=== PATIENT | female | born 1935 | race Caucasian/White ===

== ENCOUNTER → 2016-10-18 | Outpatient (CLI) | payer OTHER ==
[~2016-10-18] MED LIST: ACET-749 PO; ALPR-411 PO; CHROPOW21; HYOS1TAB PO; MOME50SP5; OMEG10007 PO; PRLSR20 PO; SERT50TA PO; VERA120T15 PO; ZNTT/150 PO
== END | disposition home or self-care (01) ==
LOC: C.LABSPEC 17:30
PROVIDERS: ATTEND Nurse Practitioner Family
DX: R32 Unspecified urinary incontinence (principal); R39.15 Urgency of urination

== ENCOUNTER → 2016-10-19 | Outpatient (CLI) | payer OTHER ==
[2016-10-19 17:22] LABS: HEMATOCRIT 40.2 % (37-47); MEAN CELL VOLUME 94.6 fL (80-100); MEAN CORPUSCULAR HGB CONC 33.8 g/dl (32-36); MEAN PLATELET VOLUME 12.1 fL (7.4-10.4); PLATELET COUNT 203 K/uL (130-400); RED BLOOD COUNT 4.25 M/uL (4.2-5.4); WHITE BLOOD COUNT 7.93 K/uL (4.8-10.8)
[2016-10-19 17:47] LABS: ALT/SGPT 99 U/L (12-78); AST/SGOT 62 U/L (15-37); BLOOD UREA NITROGEN 17 mg/dl (7-18); BUN/CREATININE RATIO 18.7 (10-20); CALCIUM 9.1 mg/dl (8.5-10.1); CARBON DIOXIDE 26 mmol/L (21-32); CHLORIDE 107 mmol/L (98-107); CREATININE 0.93 mg/dl (0.60-1.20); GLUCOSE 106 mg/dl (70-99); SODIUM 142 mmol/L (136-145)
[2016-10-19 17:58] LABS: ALB/GLOB RATIO 1.3 (0.9-2); ALKALINE PHOSPHATASE 47 U/L (45-117); CHOLESTEROL 192 mg/dl (0-200); CHOLESTEROL/HDL RATIO 3.6; HDL CHOLESTEROL 53 mg/dl; LDL CHOLESTEROL CALCULATED 112 mg/dl; TRIGLYCERIDES 134 mg/dl (0-150); VERY LOW DENSITY LIPOPROT CALC 27 mg/dl
[2016-10-20 07:06] LABS: ESTIMATED AVERAGE GLUCOSE 114 mg/dl; HA1C FLAG Normal (Normal)
== END | disposition home or self-care (01) ==
LOC: C.LABBFT 11:46
PROVIDERS: ATTEND Internal Medicine
DX: R73.01 Impaired fasting glucose (principal); E78.5 Hyperlipidemia, unspecified; I10 Essential (primary) hypertension

== ENCOUNTER → 2017-01-17 | Outpatient (CLI) | payer OTHER ==
[~2017-01-17] MED LIST changes: +CZR50 PO; +DICL1GEL12 TOP; +ROPI0.5T15 PO
--- NOTE | 2017-01-18 05:51 | PAP/PSG TECHNICIAN REPORT ---
[facility] Gate Tender Polysomnogram Report Study name: None Report date: 01/18/2017 Study date: 01/17/2017 Referring Physician: JEFFREY MEHTA M.D. Name: MELECIO MILTON Interpreting Physician: Mychal Sibley M.D. Date of : 1935 Gate Tender: Edda Nath RPSGT. Sex: Female Age: 81 StudyType: PSG Weight: 184 lbs Height: 81 years, Height 5' 5" Neck Circum: 14.5inches BMI: 30.62 Medications: Ranitidine HCl 150mg, Tramadol HCl 50mg, Diclofenac Sodium 1% gel, Vit E 400 unit, Losartan Potassium 50mg, Imodium 2mg, Oxybutynin Chloride ER 5mg, Vit D Patient History Study started on room air with no ETCO2 monitoring in room #5. 81 yr old female here tonight for a diagnostic psg. She has a history of KEVIN but does not use cpap. She said she sleeps for only a few hours at a time and then is up for hours and then may take a nap in the morning around 7 or 8 am. She is not sure if she snores. Her neck circ=14.5 inches. Parameters Monitored NPSG: E1-M2, E2-M1, Fp1-M2, Fp2-M1, F3-M2, F4-M2, F4-M1, C3-M2, C4-M2, C4-M1, O1-M2, O2-M2, O2-M1, T3-M2, T4-M1, P3-M2, P4-M1, CHIN1, CHIN2, HR, EKG, Legs, PFLOW, SNOR, FLOW, CFLOW, Tidal Volume, THOR, ABDO, SpO2, PLTH, CPRESS, ETCO2 Wave, ETCO2, pH Sleep Architecture Sleep Stages Time at Lights Off 10:20:26 PM STAGES Time (min.) TST (%) Time at Lights On 5:29:56 AM Wake 265.0 -- Total Recording Time (TRT) 429.50 min. N1 6.5 4 Total Sleep Period (TSP) 320.0 min. N2 96.0 58 Total Sleep Time (TST) 164.5min. N3 41.0 25 Awake Time 265.0 min. REM 21.0 13 Wake after Sleep Onset 216.5 min. Sleep Efficiency (SE) 38 % Sleep Onset Latency (GOPI) 48.5 min. Number of Stage 1 Shifts None Awakenings 7 Stage Changes 39 Number of REM periods 1 REM 21.0 13 REM Latency 200.5 min. NREM 143.5 87 Body Position Analysis Supine Right Left Side Prone Vertical Total Sleep Time (min.) 196.8 31.5 71.9 103.42 0.0 0.0 Total Sleep Time (%) 37% 19% 44% 63 0% N/A% Total Sleep Time REM (min.) 0.0 0.0 21.0 None 0.0 0.0 Total Sleep Time NREM (min.) 61.1 31.5 50.9 None 0.0 0.0 Intermittent Wake (min.) 135.7 77.1 52.2 None 0.0 0.0 Total Sleep Period (%) 37% None None None None None Arousals Myoclonus (PLM) * Events Count Index Events Count Index Spontaneous 4 1 Events Awake (PLMW) 443 100.3 Respiratory 4 1.5 Events Asleep w/ Arousal (PLMA) 22 8.0 PLM 22 8 Events Asleep w/o Arousal (PLMS) 187 68.2 Snoring 2 1 Total Asleep 209 76.2 Total 32 12 Total 652 91 Respiratory Analysis * CA OA MA CH H RERA Total Count 0 4 0 0 9 0 13 Index 0.0 1.5 0.0 0 3.3 0 4.7 Mean Duration 0.0 14.2 0.0 0.00 15.7 0.0 15.2 Longest Duration 0.0 15.6 0.0 0.00 0.0 0.0 21.4 Respiratory Event Summary Total Supine ~Supine Right Left Prone REM NREM Apneas Count 4 3 1 0 1 N/A 0 4 Index 1.5 3 1 0.0 0.8 N/A 0 2 Hypopneas (4% Desat) Count 9 9 0 0 0 N/A 0 9 Index 3.3 8.8 0 0.0 0.0 N/A 0.0 3.8 Apneas & All Hypopneas Count 13 12 1 0 1 N/A 0 13 Index 4.7 12 1 0 1 N/A 0.0 5.4 Respiratory Events (Manager Therapy+All Hyp+RERA) Count 13 12 1 0 1 N/A 0 13 Index 4.7 12 1 0.0 0.8 N/A 0.0 5.4 Respiratory Related Arousal Count 4 12 0 0 0 N/A 0 4 Index 1.5 4 0 0 0 N/A 0 2 Snoring Analysis Supine Right Left Prone REM NREM Total Snore duration 1.7 min Snores count 21 0 8 N/A 1 28 29 Snore mean duration 3.6 Sec Snores index 21 0 7 N/A 2.9 11.7 10.6 TST with snoring (%) 1.0% Desaturation Event Summary: Minimum %SpO2 Event Count Mean/Min/Max Duration(sec.) Desaturation Index % Time In Bed > 90 27 23.8 / 6.3 / 58.3 4.6 83.9 86 - 90 4 18.2 / 13.8 / 22.8 3.6 15.9 81 - 85 0 N/A 0.0 0.1 76 - 80 0 N/A 0.0 0.1 71 - 75 0 N/A 0.0 0.0 66 - 70 0 N/A 0.0 0.0 61 - 65 0 N/A 0.0 0.0 56 - 60 0 N/A 0.0 0.0 51 - 55 0 N/A 0.0 0.0 < 50 0 N/A 0.0 0.0 Total REM NREM Awake <50% 0.0 min. 0.0 min. 0.0 min. 0.0 min. 51 - 60% 0.0 min. 0.0 min. 0.0 min. 0.0 min. 61 - 70% 0.0 min. 0.0 min. 0.0 min. 0.0 min. 71 - 80% 0.2 min. 0.0 min. 0.0 min. 0.2 min. 81 - 90% 67.3 min. 0.2 min. 37.1 min. 30.1 min. 91 - 100% 352.9 min. 20.8 min. 106.4 min. 225.7 min. Average 92 93 92 92 Minimum SpO2 78 90 84 78 Desaturation Event Index 3.8 0.0 5.9 2.9 # Desat. Events below 89% 7 N/A 5 2 Time(%) with Saturation below 89% 0.8 0.0 0.4 0.4 Time(min.) with Saturation below 89% 3.3 0.0 1.8 1.5 Time (mins) REM (mins) NREM (mins) % of TST SpO2 Below 90% 12 N/A N12 9.3 SpO2 Below 88% 2 0 0 0 Heart Rate Analysis Min (bpm) Max (bpm) Average (bpm) Awake 38 127 71 NREM 58 79 65 REM 59 76 65 Overall 58 79 65 Supplemental O2 Values Minimum O2 level: None Value Start Time End Time Gate Tender Comments Mrs. Milton slept in the right, left and supine positions. No cardiac arrhythmia noted. Some leg movements were noted. No bruxism noted. Snoring was noted and scored as a 1 on a scale of 1 through 5. (0=no snoring, 5=snoring loud enough to be heard through a closed door or down the [address] way) She awoke to use the restroom 1 time during the night. She stated that she slept about the same as when at home. The final report will be interpreted and signed by a sleep physician. The completed physician report will then be placed in the patient medical record. Therapy (cm H2O) 0 TIB (min.) 429.5 TST (min.) 164.5 Sleep Onset (min.) 48.5 REM Onset From Sleep (min.) 200.5 Sleep Efficiency % 38 Wakefulness (%) 62 Wakefulness (min.) 265.0 NREM 1 (%) 4 NREM 1 (min.) 6.5 NREM 2 (%) 58 NREM 2 (min.) 96.0 NREM 3 (%) 25 NREM 3 (min.) 41.0 REM (%) 13 REM (min.) 21.0 # Arousals 32 Arousal Index 12 # Snore 29 Snore Index 10.6 AHI 4.7 AHI Supine 12 AHI Non-Supine 1 NREM AHI 5.4 REM AHI 0.0 RDI 4.7 # Obstructive Apnea 4 # Central Apnea 0 # Mixed Apnea 0 # Hypopneas 9 RERAs 0 Total Respiratory Events 14 Time Below SpO2 89% (min.) 1.8 Mean NREM SpO2 (%) 92 Mean REM SpO2 (%) 93 Mean Sleep SpO2 (%) 92 Min NREM SpO2 (%) 84 Min REM SpO2 (%) 90 Position Supine (min.) 196.8 Position Non-supine (min.) 103.4 LM Index Sleep 76.2 LM Index NREM 79.9 LM Index REM 51.4 Mean Heart Rate (bpm) 65 Min Heart Rate (bpm) 58
--- NOTE | 2017-01-19 18:42 | POLYSOMNOGRAPH REPORT ---
CLINICAL DATA: An 81-year-old female with a BMI of 30.[address] Bautista for a diagnostic sleep study. She has a history of sleep apnea, but does not use CPAP. She can only sleep for a few hours at a time and then is up for several hours; she naps in the morning. SLEEP ARCHITECTURE: Total sleep period was 320 minutes. Total sleep time was 164.5 minutes divided between 143.5 minutes of non-REM sleep and 21 minutes of REM sleep. Sleep onset latency was delayed at 48.5 minutes. REM latency was delayed at 200.5 minutes. Sleep efficiency was severely reduced to 38%. Wake after sleep onset was 216.5 minutes. Sleep consisted of stage N1 4%, N2 58%, N3 25%, and REM 13%. AROUSAL DATA: Thirty two arousals recorded for an index of 12 per hour. PERIODIC LIMB MOVEMENTS DATA: Markedly elevated limb movements of sleep were noted consistent with PLMD. There were 209 limb movements of sleep noted for an index of 76.2 per hour with arousal index of 8 per hour. RESPIRATORY DATA: There was no evidence of clinically significant sleep apnea/hypopnea seen. The AHI was 4.7. There were 4 obstructive apneic episodes, the longest duration of which was 15.6 seconds. There were 9 hypopneic episodes. The mean duration of hypopnea was 15.7 seconds. OXIMETRY DATA: Transient hypoxemia was seen. Oxygen shell was 84%. Mean saturation was 92%. Time below 88% was 2 minutes. ELECTROCARDIOGRAM: Heart rates ranged from 58-79 beats per minute. No arrhythmias were noted. EXOTIC DANCER'S COMMENTS: The patient slept in the right, left, and supine positions. Frequent leg movements are noted. Snoring was mild, rated 1 on a scale of 1-5. IMPRESSION: 1. No evidence of clinically significant sleep apnea/hypopnea or nocturnal hypoxemia. 2. Severe PLMD (periodic limb movement disorder of sleep) causing arousal. RECOMMENDATIONS: The patient could be evaluated for causes of PLMD/RLS and possibly treated for it if felt to be clinically significant. MTDD
== END | disposition home or self-care (01) ==
LOC: C.NEUR 20:00
PROVIDERS: ATTEND Internal Medicine
DX: G47.61 Periodic limb movement disorder (principal)

== ENCOUNTER → 2017-03-06 | Outpatient (CLI) | payer OTHER | END | disposition home or self-care (01) | LOC: C.LAB 17:29 | PROVIDERS: ATTEND Nurse Practitioner Family | DX: M54.9 Dorsalgia, unspecified (principal); R30.0 Dysuria ==

== ENCOUNTER → 2017-03-10 | Outpatient (CLI) | payer OTHER ==
--- NOTE | 2017-03-10 16:35 | DIAGNOSTIC IMAGING REPORT ---
RIGHT SHOULDER MIN 2 VIEWS ROUTINE CLINICAL HISTORY: Right shoulder pain COMPARISON: None. DISCUSSION: No acute fractures or dislocations are visualized. 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 4. Soft tissue anchors are visualized in the humeral head consistent with prior surgery. IMPRESSION: Postsurgical and degenerative change. No acute fractures. Electronically signed by: Joseph Juarez M.D. 03/10/2017 4:34 PM Dictated Date/Time: 03/10/2017 4:33 PM
== END | disposition home or self-care (01) ==
LOC: C.RAD 16:07
PROVIDERS: ATTEND Physician Assistant Medical
DX: M25.512 Pain in left shoulder (principal)

== ENCOUNTER → 2017-04-26 | Outpatient (CLI) | payer OTHER ==
[~2017-04-26] MED LIST changes: -CZR50 PO; -DICL1GEL12 TOP; -ROPI0.5T15 PO
[2017-04-26 17:21] LABS: BASO % 0.8 %; BASO ABS # 0.07 K/uL (0-0.2); COMPLETE YES; EOS % 2.1 %; HEMATOCRIT 41.8 % (37-47); IG% 0.2 %; LYMPH ABS # 3.29 K/uL (1.2-3.4); MEAN CELL VOLUME 94.6 fL (80-100); MEAN CORPUSCULAR HEMOGLOBIN 31.2 pg (25-34); MEAN PLATELET VOLUME 11.8 fL (7.4-10.4); MONO % 9.8 %; NEUT % 51.1 %; PLATELET COUNT 229 K/uL (130-400); RED BLOOD COUNT 4.42 M/uL (4.2-5.4); WHITE BLOOD COUNT 9.15 K/uL (4.8-10.8)
[2017-04-26 17:26] LABS: URINE APPEARANCE CLEAR (CLEAR); URINE BILIRUBIN NEG (NEG); URINE COLOR YELLOW; URINE NITRITE NEG (NEG); URINE PH 6.5 (4.5-7.5); URINE SPECIFIC GRAVITY 1.016 (1.000-1.030); UROBILINOGEN NEG (NEG)
[2017-04-26 17:37] LABS: BLOOD UREA NITROGEN 15 mg/dl (7-18); BUN/CREATININE RATIO 18.3 (10-20); CARBON DIOXIDE 25 mmol/L (21-32); CHLORIDE 109 mmol/L (98-107); CREATININE 0.82 mg/dl (0.60-1.20); GLUCOSE 112 mg/dl (70-99); POTASSIUM 3.7 mmol/L (3.5-5.1); SODIUM 141 mmol/L (136-145)
[2017-04-26 17:40] LABS: MANUAL MICROSCOPIC REQUIRED? NO; REVIEW REQ? NO
[2017-04-26 17:49] LABS: ALB/GLOB RATIO 1.2 (0.9-2); ALKALINE PHOSPHATASE 63 U/L (45-117); ALT/SGPT 91 U/L (12-78); AST/SGOT 76 U/L (15-37); CHOLESTEROL 170 mg/dl (0-200); CHOLESTEROL/HDL RATIO 4.3; HDL CHOLESTEROL 40 mg/dl; LDL CHOLESTEROL CALCULATED 103 mg/dl; TRIGLYCERIDES 136 mg/dl (0-150); VERY LOW DENSITY LIPOPROT CALC 27 mg/dl
[2017-04-27 06:34] LABS: ESTIMATED AVERAGE GLUCOSE 114 mg/dl; HA1C FLAG Normal (Normal)
== END | disposition home or self-care (01) ==
LOC: C.LABBFT 10:21
PROVIDERS: ATTEND Internal Medicine
DX: E78.5 Hyperlipidemia, unspecified (principal); I10 Essential (primary) hypertension; R73.01 Impaired fasting glucose; R41.0 Disorientation, unspecified

== ENCOUNTER → 2017-04-27 | Outpatient (CLI) | payer OTHER | END | disposition home or self-care (01) | LOC: C.LAB1850 14:20 | PROVIDERS: ATTEND Physician Assistant Medical | DX: G47.61 Periodic limb movement disorder (principal) ==

== ENCOUNTER → 2017-05-02 | Outpatient (CLI) | payer OTHER ==
--- NOTE | 2017-05-02 11:44 | DIAGNOSTIC IMAGING REPORT ---
ABDOMINAL ULTRASOUND, RIGHT UPPER QUADRANT HISTORY: Abnormal liver enzymes.. COMPARISON: None. FINDINGS: Pancreas: The pancreas demonstrates a normal echotexture. Liver: The liver is echogenic consistent with fatty change. No hepatic masses identified. Gallbladder: The gallbladder is surgically absent. CBD: 8 mm. Right kidney: No hydronephrosis. Stable fullness within the right renal pelvis. IMPRESSION: 1. Mild hepatic steatosis. 2. Cholecystectomy. Electronically signed by: Bob Islas M.D. 05/02/2017 11:42 AM Dictated Date/Time: 05/02/2017 11:41 AM
== END | disposition home or self-care (01) ==
LOC: C.ULTR 10:46
PROVIDERS: ATTEND Internal Medicine
DX: R74.8 Abnormal levels of other serum enzymes (principal); Z90.49 Acquired absence of other specified parts of digestive tract

== ENCOUNTER → 2017-06-27 | Outpatient (CLI) | payer OTHER ==
[~2017-06-27] VITALS: Ht 165.1 cm; Wt 81.2 kg
[2017-06-27 15:45] VITALS: BP 139/65; PULSE 67; Ht 165.1 cm; Wt 81.2 kg
== END | disposition home or self-care (01) ==
LOC: C.NEUR 14:55
PROVIDERS: ATTEND Internal Medicine Pulmonary Disease
DX: G47.00 Insomnia, unspecified (principal); G47.61 Periodic limb movement disorder

== ENCOUNTER 2017-09-05 18:17 | Emergency (ER) | payer OTHER ==
[~2017-09-05] VITALS: Ht 165.1 cm; Wt 84.0 kg
[2017-09-05 18:21] VITALS: TEMP 36.7; Ht 165.1 cm; Wt 84.0 kg
--- NOTE | 2017-09-05 19:01 | EMERGENCY ROOM VISIT NOTE ---
History Report prepared by Param: Gilmar Teixeira Under the Supervision of: Dr. Chuy Ayoub M.D. First contact with patient: 18:27 Chief Complaint: CARDIAC ASSESSMENT Stated Complaint: EKG FINDINGS Nursing Triage Summary: Pt presents with daughter. Pt was at PT today approx 1630, became SOB and lightheaded. Denies cp at present. Pt states does have sob and cp when laying down. History of Present Illness The patient is a 81 year old female who presents to the Emergency Room with complaints of intermittent chest pains which comes when she is lying down starting earlier today. The patient was at physical therapy around 1630, and she was having a massage of her neck. During this her breathing got shallow, had a near syncopal episode, and when she sat up she had chest pain. They told her to get an EKG, and it was abnormal. The patient additionally states that she is short of breath. She denies any nausea, leg swelling, hematochezia, melena, urinary symptoms, numbness, weakness, recent falls, cardiac history, neuro history, history of blood clots, and history of diabetes. She has a history of a cholecystectomy and low blood pressure. Source of History: patient Onset: 1630 Position: chest Timing: intermittent Modifying Factors (Worsening): other (lying down) Associated Symptoms: + SOB, No melena, No hematochezia, No urinary symptoms , No weakness, No numbness Note: Associated symptoms: near syncopal episode Review of Systems See HPI for pertinent positives & negatives. A total of 10 systems reviewed and were otherwise negative. Past Medical & Surgical Medical Problems: (1) Hypotension Surgical Problems: (1) Hx of cholecystectomy Old medical records were reviewed. Nurse's notes were reviewed and I agree with. Denies history cardiac disease or blood clots or pulmonary disease Social History Smoking Status: Never Smoker Marital Status: Occupation Status: retired Current/Historical Medications Scheduled Alprazolam (Xanax), 0.5 MG PO Q12HR PRN Losartan Potassium (Losartan Potassium), 50 MG PO DAILY Ranitidine (Zantac), 150 MG PO BID Ropinirole (Requip), 0.5 MG PO HS Scheduled PRN Diclofenac Sodium (Topical) (Voltaren 1% Top Gel), 1 DOSE TOP QID PRN for PRN Miscellaneous Medications Fish Oil ([place]-3), 1 CAP PO Allergies Coded Allergies: Latex1 -Allergic Contact Dermititis (Verified Allergy, Mild, `, 09/05/17) Iodinated Contrast Media (Verified Allergy, Unknown, PT BELIEVES SHE IS ALLERGIC TO CONTRAST MEDIA, 09/05/17) NSAIDs (Verified Allergy, Unknown, PT TAKES BUFFERED ASA AT HOME, 07/26/10 ) Penicillins (Verified Allergy, Unknown, 07/26/10) Sulfa Drugs (Verified Allergy, Unknown, 07/26/10) Physical Exam Vital Signs Date Time Temp Pulse Resp B/P (MAP) Pulse Ox O2 Delivery O2 Flow Rate FiO2 09/05/17 20:29 82 22 177/87 96 Room Air 09/05/17 19:25 86 20 169/75 98 Room Air 09/05/17 19:14 77 09/05/17 18:21 36.7 86 18 191/78 97 Room Air Physical Exam General: Non-ill appearing older female in no acute distress. No current complaints. HEENT: Normal cephalic atraumatic. Pupils are equal round and reactive to light. Extraocular movements are intact. Oropharynx is pink with moist mucous membranes. No swelling of the mouth lips or tongue. Neck: Supple with a midline trachea. No meningeal signs or stiffness, no JVD or bruits. No Stridor. Chest: Clear to auscultation bilaterally. No wheezes or rhonchi. No increased work of breathing. Heart: regular rate and rhythm. Abdomen: Soft nontender, nondistended without rebound guarding or rigidity. Extremities: No cyanosis clubbing or edema. No calf tenderness or assymetry Spine/Back. Non tender to palpation. No CVA tenderness Skin: Good turgor without rashes. Neurologic exam: Cranial nerves two through 12 are intact. Motor and sensation are intact and symmetrical throughout. Medical Decision & Procedures ER Provider Diagnostic Interpretation: Radiology results as stated below per my review and radiologist interpretation: CHEST ONE VIEW PORTABLE CLINICAL HISTORY: CHEST PAIN dyspnea COMPARISON STUDY: No previous studies for comparison. FINDINGS: Slight bibasilar interstitial prominence. Mid and upper lungs are clear. No evidence for cardiac enlargement. IMPRESSION: Mild bibasilar interstitial prominence. Otherwise negative study. The above report was generated using voice recognition software. It may contain grammatical, syntax or spelling errors. Electronically signed by: Raphael Daigle M.D. 09/05/2017 7:34 PM Dictated Date/Time: 09/05/2017 7:33 PM Laboratory Results 09/05/17 19:42 Red Blood Count 4.25, Mean Corpuscular Volume 95.8, Mean Corpuscular Hemoglobin 32.2, Mean Corpuscular Hemoglobin Concent 33.7, Mean Platelet Volume 11.4, Neutrophils (%) (Auto) 47.8, Lymphocytes (%) (Auto) 42.4, Monocytes (%) (Auto) 7.6, Eosinophils (%) (Auto) 1.2, Basophils (%) (Auto) 0.6, Neutrophils # (Auto) 5.25, Lymphocytes # (Auto) 4.65, Monocytes # (Auto) 0.83, Eosinophils # (Auto) 0.13, Basophils # (Auto) 0.07 09/05/17 19:42 Test 09/05/17 19:42 09/05/17 19:54 White Blood Count 10.97 K/uL (4.8-10.8) Red Blood Count 4.25 M/uL (4.2-5.4) Hemoglobin 13.7 g/dL (12.0-16.0) Hematocrit 40.7 % (37-47) Mean Corpuscular Volume 95.8 fL (80-100) Mean Corpuscular Hemoglobin 32.2 pg (25-34) Mean Corpuscular Hemoglobin Concent 33.7 g/dl (32-36) Platelet Count 199 K/uL (130-400) Mean Platelet Volume 11.4 fL (7.4-10.4) Neutrophils (%) (Auto) 47.8 % Lymphocytes (%) (Auto) 42.4 % Monocytes (%) (Auto) 7.6 % Eosinophils (%) (Auto) 1.2 % Basophils (%) (Auto) 0.6 % Neutrophils # (Auto) 5.25 K/uL (1.4-6.5) Lymphocytes # (Auto) 4.65 K/uL (1.2-3.4) Monocytes # (Auto) 0.83 K/uL (0.11-0.59) Eosinophils # (Auto) 0.13 K/uL (0-0.5) Basophils # (Auto) 0.07 K/uL (0-0.2) RDW Standard Deviation 47.8 fL (36.4-46.3) RDW Coefficient of Variation 13.8 % (11.5-14.5) Immature Granulocyte % (Auto) 0.4 % Immature Granulocyte # (Auto) 0.04 K/uL (0.00-0.02) Anion Gap 4.0 mmol/L (3-11) Est Creatinine Clear Calc Drug Dose 53.4 ml/min Estimated GFR () 71.9 Estimated GFR (Non- 62.0 BUN/Creatinine Ratio 17.8 (10-20) Calcium Level 9.1 mg/dl (8.5-10.1) Total Bilirubin 0.6 mg/dl (0.2-1) Direct Bilirubin mg/dl (0-0.2) Aspartate Amino Transf (AST/SGOT) 66 U/L (15-37) Alanine Aminotransferase (ALT/SGPT) 87 U/L (12-78) Alkaline Phosphatase 52 U/L (45-117) Total Creatine Kinase 170 U/L (26-192) Creatine Kinase MB 2.1 ng/ml (0.5-3.6) Creatine Kinase MB Ratio 1.2 (0-3.0) Total Protein 6.9 gm/dl (6.4-8.2) Albumin 3.8 gm/dl (3.4-5.0) Lipase 150 U/L (73-393) Chemistry Specimen Hemolysis Bedside Troponin I < 0.030 ng/ml (0-0.045) Laboratory studies as stated above per my review. ECG Indication: chest pain Rate (beats per minute): 76 Rhythm: normal sinus Findings: Q waves (in lead 3 only), no acute ischemic change, no ectopy Comparison ECG Date: 08/18/10 Change: no significant change ED Course 1826: Past medical records reviewed. The patient was evaluated in room B3, and a complete history and physical examination were performed. 1920: I reevaluated the patient, and she was resting comfortably 1955: I reassessed the patient, and she is still waiting for her blood work. She is complaining that she is hungry. 2020: Upon reevaluation, the patient is doing well and adamant she does not want to stay. I discussed the results and treatment plan with her. She verbalized agreement of the treatment plan. The patient was discharged home. Medical Decision Differentials include, but are not limited to; acute coronary syndrome, arrhythmia, anxiety, musculoskeletal, pulmonary disease, electrolyte or metabolic abnormality. This patient comes in as described above. She was placed in room B3. She was sent over after having a brief episode of chest pain. She was getting her neck massage and had a near syncopal episode she felt when she was massaged. She had chest pain very briefly. She's been having this for a long time primarily just when she lays down. It is nonexertional. She is asymptomatic and strongly desires to go home. She was seen at the urgent care center and on her EKG. She had a Q-wave in lead 3 so they sent her here. I did look at the EKG and it is certainly nonpathologic and it's just in one lead. There is no ST segment elevation or T-wave inversions or anything to suggest ischemia or arrhythmia. Multiple blood testing was obtained as well as a chest x-ray. She is asymptomatic at present. Her EKG here is unremarkable and unchanged compared to old ones. Her troponin is not elevated her CK-MB is not elevated. She has no acute electrode or metabolic abnormalities. Her chest x-ray does not show any acute findings. She adamantly wants to go home and has been asymptomatic here. The symptoms have been going on for quite some time and are somewhat atypical I told her we could admit her to run further cardiac testing to further rule out cardiac abnormality, she adamantly declines and refuses admission and I think that that is reasonable with her workup so far unremarkable to have her follow up with her regular doctor . return if she has worsening of symptoms or any new problems or concerns. The patient was happy with the plan and discharged to home. Medication Reconcilliation Current Medication List: was personally reviewed by me Blood Pressure Screening Patient's blood pressure: Elevated blood pressure Blood pressure disposition: Referred to PCP Impression Primary Impression: Near syncope Additional Impression: Precordial chest pain Scribe Attestation The scribe's documentation has been prepared under my direction and personally reviewed by me in its entirety. I confirm that the note above accurately reflects all work, treatment, procedures, and medical decision making performed by me. Departure Information Dispostion Home / Self-Care Referrals Aristides Bautista M.D. (PCP) Forms IMPORTANT VISIT INFORMATION Patient Instructions My [facility] Additional Instructions Rest. Drink plenty of fluids. Return if: Increasing pain, shortness of breath, worsening of symptoms, fever or chills, any new problems or concerns Follow-up with your doctor in 1-2 days for recheck Problem Qualifiers
--- NOTE | 2017-09-05 19:36 | DIAGNOSTIC IMAGING REPORT ---
CHEST ONE VIEW PORTABLE CLINICAL HISTORY: CHEST PAIN dyspnea COMPARISON STUDY: No previous studies for comparison. FINDINGS: Slight bibasilar interstitial prominence. Mid and upper lungs are clear. No evidence for cardiac enlargement. IMPRESSION: Mild bibasilar interstitial prominence. Otherwise negative study. The above report was generated using voice recognition software. It may contain grammatical, syntax or spelling errors. Electronically signed by: Raphael Daigle M.D. 09/05/2017 7:34 PM Dictated Date/Time: 09/05/2017 7:33 PM
[2017-09-05] MEDS ORDERED: DICL1GEL12 TOP (19:44)
[2017-09-05] MEDS ORDERED: ROPI0.5T15 PO (19:44)
[2017-09-05] MEDS ORDERED: CZR50 PO (19:44)
[2017-09-05 19:55] LABS: BASO % 0.6 %; BASO ABS # 0.07 K/uL (0-0.2); COMPLETE YES; EOS % 1.2 %; HEMATOCRIT 40.7 % (37-47); IG% 0.4 %; LYMPH % 42.4 %; LYMPH ABS # 4.65 K/uL (1.2-3.4); MEAN CELL VOLUME 95.8 fL (80-100); MEAN CORPUSCULAR HEMOGLOBIN 32.2 pg (25-34); MEAN CORPUSCULAR HGB CONC 33.7 g/dl (32-36); MEAN PLATELET VOLUME 11.4 fL (7.4-10.4); MONO % 7.6 %; NEUT % 47.8 %; PLATELET COUNT 199 K/uL (130-400); RED BLOOD COUNT 4.25 M/uL (4.2-5.4); WHITE BLOOD COUNT 10.97 K/uL (4.8-10.8)
[2017-09-05 20:29] VITALS: BP 177/87; PULSE 82; O2SAT 96
[2017-09-05 20:32] LABS: ALKALINE PHOSPHATASE 52 U/L (45-117); ALT/SGPT 87 U/L (12-78); AST/SGOT 66 U/L (15-37); BLOOD UREA NITROGEN 15 mg/dl (7-18); BUN/CREATININE RATIO 17.8 (10-20); CALCIUM 9.1 mg/dl (8.5-10.1); CARBON DIOXIDE 28 mmol/L (21-32); CHLORIDE 107 mmol/L (98-107); CKMB/CK RATIO 1.2 (0-3.0); CREATININE 0.87 mg/dl (0.60-1.20); GLUCOSE 86 mg/dl (70-99); POTASSIUM 4.1 mmol/L (3.5-5.1); SODIUM 139 mmol/L (136-145)
== END 2017-09-05 20:50 | disposition home or self-care (01) ==
LOC: C.EDB 18:17
DX: R55 Syncope and collapse (principal); R07.2 Precordial pain; Z90.49 Acquired absence of other specified parts of digestive tract

== ENCOUNTER → 2017-10-27 | Outpatient (CLI) | payer OTHER ==
[~2017-10-27] MED LIST changes: -ACET-749 PO; -CHROPOW21; +CZR50 PO; +DICL1GEL12 TOP; -HYOS1TAB PO; -MOME50SP5; -PRLSR20 PO; +ROPI0.5T15 PO; -SERT50TA PO; -VERA120T15 PO
[2017-10-27 16:26] LABS: HEMATOCRIT 42.7 % (37-47); HEMOGLOBIN 14.1 g/dL (12.0-16.0); MEAN PLATELET VOLUME 11.8 fL (7.4-10.4); PLATELET COUNT 208 K/uL (130-400); RED CELL DISTRIBUTION WIDTH CV 13.6 % (11.5-14.5); RED CELL DISTRIBUTION WIDTH SD 48.2 fL (36.4-46.3); WHITE BLOOD COUNT 9.69 K/uL (4.8-10.8)
[2017-10-27 16:37] LABS: ALBUMIN 3.7 gm/dl (3.4-5.0); ALT/SGPT 87 U/L (12-78); BLOOD UREA NITROGEN 16 mg/dl (7-18); CALCIUM 9.2 mg/dl (8.5-10.1); CARBON DIOXIDE 28 mmol/L (21-32); CHOLESTEROL 175 mg/dl (0-200); GLUCOSE 104 mg/dl (70-99); POTASSIUM 4.1 mmol/L (3.5-5.1); SODIUM 139 mmol/L (136-145)
[2017-10-27 16:48] LABS: ALKALINE PHOSPHATASE 49 U/L (45-117); AST/SGOT 64 U/L (15-37); LDL CHOLESTEROL CALCULATED 110 mg/dl; TOTAL PROTEIN 6.7 gm/dl (6.4-8.2)
[2017-10-28 06:26] LABS: HEMOGLOBIN A1C 5.5 % (4.5-5.6)
== END | disposition home or self-care (01) ==
LOC: C.LABBFT 11:57
PROVIDERS: ATTEND Internal Medicine
DX: E78.5 Hyperlipidemia, unspecified (principal); I10 Essential (primary) hypertension; R73.01 Impaired fasting glucose

== ENCOUNTER → 2018-04-26 | Outpatient (CLI) | payer OTHER ==
[~2018-04-26] MED LIST changes: +RANI150T85 PO; -ZNTT/150 PO
[2018-04-26 17:38] LABS: HEMATOCRIT 42.1 % (37-47); HEMOGLOBIN 14.1 g/dL (12.0-16.0); MEAN CORPUSCULAR HEMOGLOBIN 31.8 pg (25-34); MEAN CORPUSCULAR HGB CONC 33.5 g/dl (32-36); MEAN PLATELET VOLUME 12.5 fL (7.4-10.4); PLATELET COUNT 191 K/uL (130-400); RED CELL DISTRIBUTION WIDTH CV 13.8 % (11.5-14.5); RED CELL DISTRIBUTION WIDTH SD 47.6 fL (36.4-46.3); WHITE BLOOD COUNT 9.93 K/uL (4.8-10.8)
[2018-04-26 17:57] LABS: ALBUMIN 3.7 gm/dl (3.4-5.0); ALKALINE PHOSPHATASE 50 U/L (45-117); ALT/SGPT 81 U/L (12-78); AST/SGOT 65 U/L (15-37); BLOOD UREA NITROGEN 14 mg/dl (7-18); CALCIUM 9.2 mg/dl (8.5-10.1); CARBON DIOXIDE 25 mmol/L (21-32); CHOLESTEROL 198 mg/dl (0-200); CREATININE 0.99 mg/dl (0.60-1.20); GLUCOSE 157 mg/dl (70-99); LDL CHOLESTEROL CALCULATED 122 mg/dl; POTASSIUM 3.9 mmol/L (3.5-5.1); SODIUM 141 mmol/L (136-145); TOTAL PROTEIN 6.5 gm/dl (6.4-8.2)
== END | disposition home or self-care (01) ==
LOC: C.LABBFT 14:07
PROVIDERS: ATTEND Internal Medicine
DX: E78.5 Hyperlipidemia, unspecified (principal); I10 Essential (primary) hypertension

== ENCOUNTER 2020-12-24 18:27 | Inpatient (IN) ==
--- NOTE | 2020-12-24 18:54 | Emergency Department Note ---
History of Present Illness General Chief complaint: Chest Pain Stated complaint: CHEST PAIN Time Seen by Provider: 12/24/20 18:38 Source: patient and family Limitations: altered mental status History of Present Illness Provider complaint: Chest pain Onset (ago): hour(s) Location: chest, left and right Radiation: non-radiation Pain Consistency: + now resolved Maximum Pain Intensity: 8 Quality: + other (Unable to describe) Relieved By: + none Associated symptoms: + confusion, + headaches and + shortness of breath; no cough, no fever/chills and no nausea/vomiting This is an 85-year-old female presenting with altered mental status and chest pain. The patient apparently told her daughter's niece that she had chest pain several hours ago. She states the pain is across her chest. She cannot describe it. It was associated with shortness of breath. It is now resolved. No modifying factors. She does complain of a mild headache at this time. Her daughter states that she is very confused. She is not normally confused. The last time she spoke to her and she was normal was at 6 PM yesterday. The patient denies any numbness or weakness on one side of her body. She denies any abdominal pain or vomiting. History is limited due to altered mental status. Home Medications Medication Instructions Recorded Confirmed Type vitamin E 400 unit PO DAILY 10/04/18 12/24/20 History diclofenac sodium 1 % topical gel 4 gm TOPICAL QID PRN #100 gm 12/16/19 12/24/20 Rx lorazepam 0.5 mg tablet 0.5 mg PO DAILY PRN #30 tab 12/16/19 12/24/20 Rx Allergies Allergy/AdvReac Type Severity Reaction Status Date / Time latex Allergy Mild ` Verified 12/24/20 20:38 Iodinated Contrast Media Allergy Unknown PT Verified 12/24/20 20:38 BELIEVES SHE IS ALLERGIC TO CONTRAST MEDIA NSAIDS (Non-Steroidal Allergy Unknown PT TAKES Verified 12/24/20 20:38 Anti-Inflamma BUFFERED ASA AT HOME Penicillins Allergy Unknown Unknown Verified 12/24/20 20:38 Sulfa (Sulfonamide Allergy Unknown Unknown Verified 12/24/20 20:38 Antibiotics) HEATH Inhibitors Allergy Unknown Verified 12/24/20 20:38 erythromycin base Allergy Unknown Verified 12/24/20 20:38 escitalopram [From Lexapro] Allergy Unknown Verified 12/24/20 20:38 Latex, Natural Rubber Allergy Unknown Verified 12/24/20 20:38 methocarbamol [From Robaxin] Allergy Unknown Verified 12/24/20 20:38 oxybutynin Allergy Unknown Verified 12/24/20 20:38 Fzdgyyx-Rqk-Upf Reductase Allergy Unknown Verified 12/24/20 20:38 Inhibitor tegaserod [From Zelnorm] Allergy Unknown Verified 12/24/20 20:38 milk AdvReac Unknown Verified 12/24/20 20:38 Past Med/Surg History Medical History Altered mental status Anxiety Depression Hyperlipidemia Hypertension Hypotension Impaired fasting glucose Neck pain Shortness of breath Syncopal episodes Surgical History H/O hysterectomy with oophorectomy History of appendectomy History of carpal tunnel surgery History of foot surgery Hx of cholecystectomy Family History Sister Arthritis Cancer Diabetes Coronary heart disease Hypertension Kidney disease Breast cancer Father Cerebral artery occlusion Heart disease Hypertension Myocardial infarction Daughter Cardiac disorder Hypertension Heart disease Son Cardiac disorder Hearing loss Other Family history non-contributory Denies family history of Ovarian cancer Prostate cancer Colorectal cancer Social History Smoking Status: Never smoker Second Hand Exposure: No; Hx Alcohol Use: No Hx Substance Use: No Preferred Language: Bengali Visual Impairment: No Limitations Hearing Ability: Use of Hearing Aid marital status: / Current Living Situation: Alone Current Living Situation Comment: she rents a trailer next to her family current occupational status: retired current occupation: worked making components of electronics Feels Safe at Home: Yes Childhood Exposure to Second-Hand Smoke: Yes Dental Care, Regularly: No Physical Activity Frequency: Does not Exercise Seatbelt Use: always Sunscreen Use: No Review of Systems See HPI for pertinent positives & negatives. Unobtainable due to cognitive status Physical Exam Vital Signs Vital Signs - 24 hr 12/24/20 18:33 12/24/20 18:48 12/24/20 18:54 Temperature 36.9 C Temperature Source Oral Pulse Rate 102 H 90 Pulse Rate from SpO2 Sensor 91 H Respiratory Rate 20 25 H Respiratory Effort / Characteristics Non-Labored Respiratory Depth Normal Blood Pressure 175/80 H 153/75 H Blood Pressure Mean 111 101 Pulse Oximetry 95 96 95 Oxygen Delivery Method Room Air Room Air Sepsis Recent Fever Within 48 Hours No Sepsis New/Unexplained Change in Mental Status N/A Sepsis Action Taken by Nursing No Action Required 12/24/20 18:59 12/24/20 19:00 12/24/20 19:57 Temperature Temperature Source Pulse Rate 89 89 85 Pulse Rate from SpO2 Sensor 89 89 Respiratory Rate 23 21 14 Respiratory Effort / Characteristics Respiratory Depth Blood Pressure 148/88 H Blood Pressure Mean 108 Pulse Oximetry 95 95 Oxygen Delivery Method Sepsis Recent Fever Within 48 Hours Sepsis New/Unexplained Change in Mental Status Sepsis Action Taken by Nursing 12/24/20 20:00 12/24/20 20:30 12/24/20 21:00 Temperature Temperature Source Pulse Rate 83 84 80 Pulse Rate from SpO2 Sensor 88 84 80 Respiratory Rate 19 18 16 Respiratory Effort / Characteristics Respiratory Depth Blood Pressure 144/75 H 145/98 H 160/78 H Blood Pressure Mean 98 113 105 Pulse Oximetry 97 97 97 Oxygen Delivery Method Sepsis Recent Fever Within 48 Hours Sepsis New/Unexplained Change in Mental Status Sepsis Action Taken by Nursing 12/24/20 21:30 12/24/20 22:00 Temperature Temperature Source Pulse Rate 82 81 Pulse Rate from SpO2 Sensor 82 83 Respiratory Rate 17 17 Respiratory Effort / Characteristics Respiratory Depth Blood Pressure 173/85 H Blood Pressure Mean 114 Pulse Oximetry 97 96 Oxygen Delivery Method Sepsis Recent Fever Within 48 Hours Sepsis New/Unexplained Change in Mental Status Sepsis Action Taken by Nursing Constitutional: Vital signs reviewed. Eyes: Pupils are equal round reactive to light. Conjunctiva are noninjected. ENT: Pharynx is clear without erythema or exudate. Mucous membranes are moist. Neck supple without meningeal signs. Respiratory: Clear to auscultation bilaterally. Breath sounds are equal bilaterally. Cardiovascular: Regular rate and rhythm. No rubs or gallops. GI: Soft, nondistended and nontender. Bowel sounds are present. Musculoskeletal: No peripheral edema. No lower extremity tenderness. Integumentary: No cyanosis. or jaundice. Neurologic: The patient is awake and alert and oriented x2. Cranial nerves II- XII are intact. Motor is 5 out of 5 all extremities. Sensation is intact to light touch all extremities. Normal speech. No pronator drift. Psychiatric: Unable to assess. She mostly staring blankly into space. Course Administered Medications Lorazepam (Lorazepam 0.5 Mg Tab) 0.5 mg PO DAILY PRN PRN Reason: anxiety Stop: 01/23/21 21:54 Last Admin: 12/24/20 21:58 Dose: 0.5 mg Documented by: [id number] Medical Decision Making Differential Diagnosis Unstable angina, VT, pneumonia, encephalopathy, stroke, intracranial hemorrhage Medical Records Attestation: I reviewed the patient's medical records. I did perform a limited focused review of portions of the patient's old chart on the electronic medical record. The patient had a health maintenance visit at her primary care provider's several days ago. Home Medications Current Medication List: was personally reviewed by me Laboratory Data Attestation: I reviewed the patient's lab results. Result diagrams: 12/24/20 18:50 12/24/20 18:50 Lab Results 12/24/20 12/24/20 12/24/20 Range/Units 18:50 18:50 18:50 WBC 30.95 H* (4.8-10.8) K/uL RBC 4.23 (4.2-5.4) M/uL Hgb 13.4 (12.0-16.0) g/dL Hct 40.9 (37-47) % MCV 96.7 (80-100) fL MCH 31.7 (25-34) pg MCHC 32.8 (32-36) g/dL RDW Std Deviation 51.5 H (36.4-46.3) fL RDW Coeff of Billy 14.5 (11.5-14.5) % Plt Count 142 (130-400) K/uL MPV 11.4 H (7.4-10.4) fL Immature Gran % (Auto) 0.4 % Neut % (Auto) 14.9 % Lymph % (Auto) 81.5 % [place] % (Auto) 2.7 % Eos % (Auto) 0.3 % Baso % (Auto) 0.2 % Neut # (Auto) 4.62 (1.4-6.5) K/uL Lymph # (Auto) 25.21 H (1.2-3.4) K/uL Stafford # (Auto) 0.85 H (0.11-0.59) K/uL Eos # (Auto) 0.09 (0-0.5) K/uL Baso # (Auto) 0.06 (0-0.2) K/uL Immature Gran # (Auto) 0.12 H (0.00-0.02) K/uL PT 10.2 (9.0-12.0) Seconds INR 1.0 (0.9-1.1) APTT 23.1 (21.0-31.0) Seconds PTT Ratio 0.9 Sodium 142 (136-145) mmol/L Potassium 4.0 (3.5-5.1) mmol/L Chloride 110 H (98-107) mmol/L Carbon Dioxide 26 (21-32) mmol/L Anion Gap 6.0 (3-11) BUN 22 H (7-18) mg/dl Creatinine 1.02 (0.6-1.2) mg/dl Est Cr Clr Drug Dosing 41.7 ml/min Est GFR ( Amer) 57.7 Est GFR (Non-Af Amer) 49.8 BUN/Creatinine Ratio 21.1 H (10-20) Glucose 131 H (70-99) mg/dl Calcium 8.9 (8.5-10.1) mg/dl Magnesium 2.3 (1.8-2.4) mg/dl Total Bilirubin 0.6 (0.2-1) mg/dl AST 54 H (15-37) U/L ALT 62 (12-78) U/L Alkaline Phosphatase 56 (45-117) U/L Troponin I < 0.015 (0-0.045) ng/ml Total Protein 6.4 (6.4-8.2) gm/dl Albumin 3.7 (3.4-5.0) gm/dl Globulin 2.7 (2.5-4.0) gm/dl Albumin/Globulin Ratio 1.4 (0.9-2) Specimen Hemolysis Urine Color Urine Appearance (Clear) Urine pH (4.5-7.5) Ur Specific [place] (1.000-1.030) Urine Protein (Negative) Urine Glucose (UA) (Negative) Urine Ketones (Negative) Urine Blood (Negative) Urine Nitrite (Negative) Urine Bilirubin (Negative) Urine Urobilinogen (Negative) Ur Leukocyte Esterase (Negative) Urine WBC (Auto) (0-5) /hpf Urine RBC (Auto) (0-4) /hpf U Hyaline Cast (Auto) (0-5) /lpf U Epithel Cells (Auto) (0-5) /lpf Urine Bacteria (Auto) (Negative) COVID-19 Eval Order 12/24/20 12/24/20 Range/Units 19:55 21:32 WBC (4.8-10.8) K/uL RBC (4.2-5.4) M/uL Hgb (12.0-16.0) g/dL Hct (37-47) % MCV (80-100) fL MCH (25-34) pg MCHC (32-36) g/dL RDW Std Deviation (36.4-46.3) fL RDW Coeff of Billy (11.5-14.5) % Plt Count (130-400) K/uL MPV (7.4-10.4) fL Immature Gran % (Auto) % Neut % (Auto) % Lymph % (Auto) % [place] % (Auto) % Eos % (Auto) % Baso % (Auto) % Neut # (Auto) (1.4-6.5) K/uL Lymph # (Auto) (1.2-3.4) K/uL [place] # (Auto) (0.11-0.59) K/uL Eos # (Auto) (0-0.5) K/uL Baso # (Auto) (0-0.2) K/uL Immature Gran # (Auto) (0.00-0.02) K/uL PT (9.0-12.0) Seconds INR (0.9-1.1) APTT (21.0-31.0) Seconds PTT Ratio Sodium (136-145) mmol/L Potassium (3.5-5.1) mmol/L Chloride (98-107) mmol/L Carbon Dioxide (21-32) mmol/L Anion Gap (3-11) BUN (7-18) mg/dl Creatinine (0.6-1.2) mg/dl Est Cr Clr Drug Dosing ml/min Est GFR ( Amer) Est GFR (Non-Af Amer) BUN/Creatinine Ratio (10-20) Glucose (70-99) mg/dl Calcium (8.5-10.1) mg/dl Magnesium (1.8-2.4) mg/dl Total Bilirubin (0.2-1) mg/dl AST (15-37) U/L ALT (12-78) U/L Alkaline Phosphatase (45-117) U/L Troponin I (0-0.045) ng/ml Total Protein (6.4-8.2) gm/dl Albumin (3.4-5.0) gm/dl Globulin (2.5-4.0) gm/dl Albumin/Globulin Ratio (0.9-2) Specimen Hemolysis Urine Color Yellow Urine Appearance Clear (Clear) Urine pH 6.5 (4.5-7.5) Ur Specific [place] 1.024 (1.000-1.030) Urine Protein Negative (Negative) Urine Glucose (UA) Negative (Negative) Urine Ketones Trace H (Negative) Urine Blood Negative (Negative) Urine Nitrite Negative (Negative) Urine Bilirubin Negative (Negative) Urine Urobilinogen Negative (Negative) Ur Leukocyte Esterase 1+ H (Negative) Urine WBC (Auto) 10-30 H (0-5) /hpf Urine RBC (Auto) 0-4 (0-4) /hpf U Hyaline Cast (Auto) 1-5 (0-5) /lpf U Epithel Cells (Auto) >30 H (0-5) /lpf Urine Bacteria (Auto) Negative (Negative) COVID-19 Eval Order [facility] at [facility] Imaging Data Radiologist's Impression: CT OF THE HEAD WITHOUT CONTRAST CLINICAL HISTORY: Altered mental status. COMPARISON STUDY: Head CT June 21, 2019. CT DOSE: 614.27 mGy.cm TECHNIQUE: Helical axial images of the head were obtained without IV contrast. Automated exposure control was utilized for the study. A dose lowering technique was utilized adhering to the principles of ALARA. FINDINGS: No acute intracranial hemorrhage, midline shift or mass effect is present. The ventricular system is unremarkable. The basal cisterns are patent. No extra-axial collections are present. There are no findings to suggest acute dural sinus thrombosis or acute territorial infarct. No significant calvarial abnormalities are present. Visualized portions of the sinuses and mastoid air cells are clear. IMPRESSION: No acute intracranial findings. No change in appearance of the brain. ACT 112: Negative or not required by law. Electronically signed by: Kit Mosqueda M.D. 12/24/2020 7:20 PM Dictated: 12/24/201917 Transcribed: 03/25/21 1918 XR chest 1V portable CLINICAL HISTORY: Chest pain. COMPARISON STUDY: Chest radiograph June 21, 2019. FINDINGS: Incidental note is made of postoperative findings within the right shoulder. There is no pneumothorax or pleural effusion. There is mild left basilar opacity. Right lung is clear. Cardiomediastinal silhouette is stable. There is no evidence for pulmonary edema. There is no pneumothorax or pleural effusion. IMPRESSION: 1. Mild left basilar opacity. Atelectasis is favored. 2. Cardiomegaly without evidence for pulmonary edema. ACT 112: Negative or not required by law. Electronically signed by: Kit Mosqueda M.D. 12/24/2020 7:09 PM Dictated: 12/24/201907 Transcribed: 12/24/201907 ECG Data Attestation: I personally reviewed and interpreted this ECG as follows: Rate (beats per minute): 97 Rhythm: + normal sinus ECG Diana: + Normal ECG ST segments: no ST elevation ECG Findings: no PVCs MDM Narrative I did evaluate the patient as noted above. The patient is presenting with altered mental status and chest discomfort. She is unable to characterize the chest discomfort but states that it is now gone. The patient is normally conversant but is rather confused and staring blankly at times. Last known well was approximately 6 PM yesterday. She has no focal deficits on neurologic exam. She does follow most commands but is only oriented to person and place. IV access was established. I did place an order for continuous cardiac monitoring. The monitor showed normal sinus rhythm at a rate of 96 bpm. I did order and personally review the patient's 12-lead EKG as described above. She has no a cute ischemic changes. I did order and personally reviewed the images of the patient's chest x-ray as described above. Mild left basilar opacity likely representing atelectasis. The patient has had no cough or cold symptoms. I did order a urine analysis. She does have leukocyte esterase and WBCs but also greater than 30 epithelial cells. Urine culture is pending. The patient has no urinary symptoms. I did order and review the patient's blood work as noted in the electronic medical record. Her white count is over 30,000 but she does have a history of CLL. She is not anemic. Troponin is negative. Electrolytes are unremarkable. I did order a CT of the head. I did review the images myself as well as the radiology report as described above. There is no evidence of acute intracranial abnormality. I did discuss the test results with the patient and her daughter. At this time the patient seems to be somewhat improved. She is conversing more easily but still only oriented to person and place. I did recommend hospitalization for further care and evaluation and repeat cardiac biomarkers. The case was discussed with the case specialist and the hospitalist was informed. Impression & Plan Altered mental status, Chest pain Discharge Plan Visit Data Chief Complaint: Chest Pain Stated Complaint: CHEST PAIN ED Provider: Christofer Alcala Discharge Problem: Altered mental status, Chest pain Patient Disposition: Being Evaluated by Hospitalist Forms Stand Alone Forms: My [facility] [employer] Prescriptions Prescriptions: No Action diclofenac sodium [Voltaren] 1 % gel 4 gm TOPICAL QID PRN (Reason: Pain) Qty: 100 RF: 5 lorazepam 0.5 mg tablet 0.5 mg PO DAILY PRN (Reason: anxiety) Qty: 30 RF: 0 vitamin E 400 unit Capsule 400 unit PO DAILY RF: 0 Referrals Referrals: Aristides Bautista III, MD [Primary Care Provider] - Discharge Problem: Altered mental status Qualifiers: Altered mental status type: disorientation Qualified Code(s): R41.0 - Disorientation, unspecified Chest pain Qualifiers: Chest pain type: unspecified Qualified Code(s): R07.9 - Chest pain, unspecified
--- NOTE | 2020-12-24 19:11 | XRay Report ---
XR chest 1V portable CLINICAL HISTORY: Chest pain. COMPARISON STUDY: Chest radiograph June 21, 2019. FINDINGS: Incidental note is made of postoperative findings within the right shoulder. There is no pn eumothorax or pleural effusion. There is mild left basilar opacity. Right lung is clear. Cardiomedias tinal silhouette is stable. There is no evidence for pulmonary edema. There is no pneumothorax or ple ural effusion. IMPRESSION: 1. Mild left basilar opacity. Atelectasis is favored. 2. Cardiomegaly without evidence for pulmonary edema. ACT 112: Negative or not required by law. Electronically signed by: Kit Mosqueda M.D. 12/24/2020 7:09 PM
[2020-12-24 19:21] LABS: Partial Thromboplastin Ratio 0.9; Partial Thromboplastin Time 23.1 Seconds (21.0-31.0); Prothrombin Time 10.2 Seconds (9.0-12.0)
--- NOTE | 2020-12-24 19:22 | CT Scan Report ---
CT OF THE HEAD WITHOUT CONTRAST CLINICAL HISTORY: Altered mental status. COMPARISON STUDY: Head CT June 21, 2019. CT DOSE: 614.27 mGy.cm TECHNIQUE: Helical axial images of the head were obtained without IV contrast. Automated exposure con trol was utilized for the study. A dose lowering technique was utilized adhering to the principles o f ALARA. FINDINGS: No acute intracranial hemorrhage, midline shift or mass effect is present. The ventricular system is unremarkable. The basal cisterns are patent. No extra-axial collections are present. There are no findings to suggest acute dural sinus thrombosis or acute territorial infarct. No significant calvarial abnormalities are present. Visualized portions of the sinuses and mastoid air cells are cailin ar. IMPRESSION: No acute intracranial findings. No change in appearance of the brain. ACT 112: Negative or not required by law. Electronically signed by: Kit Mosqueda M.D. 12/24/2020 7:20 PM
[2020-12-24 19:27] LABS: Hematocrit (blood only) 40.9 % (37-47); Hemoglobin 13.4 g/dL (12.0-16.0); Mean Corpuscular Hemoglobin 31.7 pg (25-34); Mean Corpuscular Hgb Conc 32.8 g/dL (32-36); Mean Corpuscular Volume 96.7 fL (80-100); Mean Platelet Volume 11.4 fL (7.4-10.4); Platelet Count 142 K/uL (130-400); RDW Coefficient of Variation 14.5 % (11.5-14.5); RDW Standard Deviation 51.5 fL (36.4-46.3); Red Blood Count 4.23 M/uL (4.2-5.4); White Blood Count 30.95 K/uL (4.8-10.8)
[2020-12-24 19:36] LABS: Alanine Aminotransferase 62 U/L (12-78); Albumin Globulin Ratio 1.4 (0.9-2); Albumin Level 3.7 gm/dl (3.4-5.0); Alkaline Phosphatase 56 U/L (45-117); Aspartate Aminotransferase 54 U/L (15-37); BUN Creatinine Ratio 21.1 (10-20); Bilirubin,Total 0.6 mg/dl (0.2-1); Blood Urea Nitrogen 22 mg/dl (7-18); Calcium 8.9 mg/dl (8.5-10.1); Carbon Dioxide 26 mmol/L (21-32); Chloride 110 mmol/L (98-107); Creatinine Clr Calc Pharmacy 41.7 ml/min; Est GFR (African American) 57.7; Est GFR (Non-African American) 49.8; Globulin 2.7 gm/dl (2.5-4.0); Glucose 131 mg/dl (70-99); Magnesium 2.3 mg/dl (1.8-2.4); Sodium 142 mmol/L (136-145); Total Protein 6.4 gm/dl (6.4-8.2); Troponin I < 0.015 ng/ml (0-0.045)
[2020-12-24 20:08] LABS: Appearance Urine Clear (Clear); Bacteria Urine Automated Negative (Negative); Bilirubin Urine Negative (Negative); Blood Urine Negative (Negative); Color Urine Yellow; Epithelial Cell Urine Auto >30 /lpf (0-5); Glucose Urine UA Negative (Negative); Ketones Urine Trace (Negative); Leukocyte Esterase Urine 1+ (Negative); Nitrite Urine Negative (Negative); Protein Urine Negative (Negative); RBC Urine Automated 0-4 /hpf (0-4); Specific Gravity Urine 1.024 (1.000-1.030); Urobilinogen Urine Negative (Negative); pH Urine 6.5 (4.5-7.5)
[2020-12-24 20:27] LABS: Basophils # (auto) 0.06 K/uL (0-0.2); Basophils % (auto) 0.2 %; Eosinophils # (auto) 0.09 K/uL (0-0.5); Eosinophils % (auto) 0.3 %; Immature Granulocytes # (auto) 0.12 K/uL (0.00-0.02); Immature Granulocytes % (auto) 0.4 %; Lymphocytes # (auto) 25.21 K/uL (1.2-3.4); Lymphocytes % (auto) 81.5 %; Monocytes # (auto) 0.85 K/uL (0.11-0.59); Monocytes % (auto) 2.7 %; Neutrophils # (auto) 4.62 K/uL (1.4-6.5); Neutrophils % (auto) 14.9 %
[2020-12-24] MEDS: LORazepam 0.5 MG TAB PO PRN (21:58)
--- NOTE | 2020-12-24 22:11 | History & Physical Report ---
Date of Service December 24, 2020 Assessment & Plan (1) Encephalopathy: Pleasantly confused and anxious elderly female with chronically elevated WBC with her CLL - This may be due to occult infection as well as mildly dirty urine - blood cultures pending, urine speciation pending, procalcitonin and CRP pending - Will give rocephin 1gm IV wean off when clinical picture becomes more clear, with underlying CLL - Patient anxious tonight and already had CT head that showed no acute process; however might be reasonable during daylight hours with her daughter here to take her for and MRI. - Glucose is controlled and patient is not in hypertensive emergency - Promote normal sleep and wake cycles as appropriate- fall risk Patient is normally independent and has family that overlooks her, it appears as she has has scored 4 on her last two mini-cognitive tests (most recent was [id number]) (2) Chest pain: Reproducable chest pain on the left 2-3rd intercostal space. 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: As per HPI - await peripheral smear - daughter and patient decline any b symptoms, night sweat, spleen not enlarged on exam and nontender abdomen, normal CXR, (4) Anxiety: Chronic - Continue home Ativan dosing (5) Hypertension: Not well controlled while in house patient recently stopped taking her ARB - Will add on Labatelol prn for SBP >180 - No protein or blood in urine (6) Impaired fasting glucose: Follow in house - A1C in June 21- 5.9%- repeat in morning - BG <180 goal History of Present Illness Primary Care Provider: Aristides Bautista MD 85 YOF with past medical history of HTN, HLD, impaired fasting glucose, Monoclonal B-Cell lymphocytosis with CLL. She is pleasantly confused and most of the HPI from her daughter. She came to the emergency room today via her daughter for concerns of confusion and complaint of chest pain. She had a CT scan of her head performed in the EMD with no acute pathology noted and a normal CXR. She is noted to have an increase in WBC; lymphocyte predominance. Patient has been more fatigued for the past couple days and today the daughter was notified by her niece that she was confused. She then brought her to the [facility], she has no fevers or chills or other associated symptoms. She was seen at the beginning of November for diarrhea, nausea and vomitting with possible gastroenteritis, which her daughter said has improved and she returned to her normal function. Her chest pain she currently denying any pain and her breathing is regular with no hypoxia. For her CLL the patient has previously requested just serial lab monitoring and declined referral to hematology/oncolgy; she has also self discontinued her ARB and ASA. Her platelet count and RBC count is normal and is pending a peripheral review of her slide. Patient will be admitted for observation, urine with (+) LE, WBC 10-30 per HPF and epe cells >30; will put on broad spectrum while this speciates and blood cultures and procalcitonin are pending. Allergies Allergy/AdvReac Type Severity Reaction Status Date / Time latex Allergy Mild ` Verified 12/24/20 20:38 Iodinated Contrast Media Allergy Unknown PT Verified 12/24/20 20:38 BELIEVES SHE IS ALLERGIC TO CONTRAST MEDIA NSAIDS (Non-Steroidal Allergy Unknown PT TAKES Verified 12/24/20 20:38 Anti-Inflamma BUFFERED ASA AT HOME Penicillins Allergy Unknown Unknown Verified 12/24/20 20:38 Sulfa (Sulfonamide Allergy Unknown Unknown Verified 12/24/20 20:38 Antibiotics) HEATH Inhibitors Allergy Unknown Verified 12/24/20 20:38 erythromycin base Allergy Unknown Verified 12/24/20 20:38 escitalopram [From Lexapro] Allergy Unknown Verified 12/24/20 20:38 Latex, Natural Rubber Allergy Unknown Verified 12/24/20 20:38 methocarbamol [From Robaxin] Allergy Unknown Verified 12/24/20 20:38 oxybutynin Allergy Unknown Verified 12/24/20 20:38 Qfmnnge-Tmy-Sdp Reductase Allergy Unknown Verified 12/24/20 20:38 Inhibitor tegaserod [From Zelnorm] Allergy Unknown Verified 12/24/20 20:38 milk AdvReac Unknown Verified 12/24/20 20:38 Home Medications Medication Instructions Recorded Confirmed Type vitamin E 400 unit PO DAILY 10/04/18 12/24/20 History diclofenac sodium 1 % topical gel 4 gm TOPICAL QID PRN #100 gm 12/16/19 12/24/20 Rx lorazepam 0.5 mg tablet 0.5 mg PO DAILY PRN #30 tab 12/16/19 12/24/20 Rx Past Med/Surg History Medical History Altered mental status Anxiety Depression Hyperlipidemia Hypertension Hypotension Impaired fasting glucose Neck pain Shortness of breath Syncopal episodes Surgical History H/O hysterectomy with oophorectomy History of appendectomy History of carpal tunnel surgery History of foot surgery Hx of cholecystectomy Family History Sister Arthritis Cancer Diabetes Coronary heart disease Hypertension Kidney disease Breast cancer Father Cerebral artery occlusion Heart disease Hypertension Myocardial infarction Daughter Cardiac disorder Hypertension Heart disease Son Cardiac disorder Hearing loss Other Family history non-contributory Denies family history of Ovarian cancer Prostate cancer Colorectal cancer Social History Smoking Status: Never smoker Second Hand Exposure: No; Hx Alcohol Use: No Hx Substance Use: No Preferred Language: Italian Communication Ability: Effective Visual Impairment: No Limitations Hearing Ability: Use of Hearing Aid Cap Inspector Required: No Beliefs That Will Affect Care: None marital status: / Current Living Situation: Alone Current Living Situation Comment: she rents a trailer next to her family current occupational status: retired current occupation: worked making components of electronics Other Information That Helps Us Care for You: No Feels Safe at Home: Yes Safety Concerns: Feels Safe At This Time Childhood Exposure to Second-Hand Smoke: Yes Dental Care, Regularly: No Physical Activity Frequency: Does not Exercise Seatbelt Use: always Sunscreen Use: No Assistive Devices: Hearing Aid - Bilateral Review of Systems Review of Systems: As per HPI, answered mostly through daughter - Difficutly hearing and alteration in mental status, patient also declined to answer questions once she was told she would be admitted. Physical Exam Physical Exam: PHYSICAL EXAM: General: awake, alert, pleasantly confused, no apparent distress Head: Normocephalic, atraumatic ENT: PERRLA brisk 3-2, EOMI, no pharyngeal exudate, mucous membranes moist Neuro: AAO x 2 person/place, speech clear and but inappropriate, strength intact bilaterally 5/5, sensation intact and equal all extremities and dermatomes, no pronator drift Chest: equal rise and fall of the chest, no accessory muscle use, no heaves or thrills, Clear to auscultation, on room air, Cardiac: Regular rate and rhythm, telemetry reviewed, skin warm dry, cap refill <3 seconds, peripheral pulses +2 no JVD, no murmur, no edema GI: NABS x 4 quadrants, soft, nontender to palpation, no rebound, guarding or tenderness : Spontaneously voiding, no pain, no CVA tenderness, Extremities: Normal inspection, no peripheral edema or erythema, calfs nontender to palpation Psych: Normal mood and affect Skin: no rash or erythema Results & Data Results & Data ([facility]) Vital Signs (Past 12 Hours) Vital Signs Temp Pulse Resp BP Pulse Ox 12/24/20 18:48 96 12/24/20 18:33 36.9 C 102 H 20 175/80 H 95 Laboratory Results Abnormal lab results 12/24/20 12/24/20 12/24/20 Range/Units 18:50 18:50 19:55 WBC 30.95 H* (4.8-10.8) K/uL RDW Std Deviation 51.5 H (36.4-46.3) fL MPV 11.4 H (7.4-10.4) fL Lymph # (Auto) 25.21 H (1.2-3.4) K/uL Brewster # (Auto) 0.85 H (0.11-0.59) K/uL Immature Gran # (Auto) 0.12 H (0.00-0.02) K/uL Chloride 110 H (98-107) mmol/L BUN 22 H (7-18) mg/dl BUN/Creatinine Ratio 21.1 H (10-20) Glucose 131 H (70-99) mg/dl AST 54 H (15-37) U/L Urine Ketones Trace H (Negative) Ur Leukocyte Esterase 1+ H (Negative) Urine WBC (Auto) 10-30 H (0-5) /hpf U Epithel Cells (Auto) >30 H (0-5) /lpf Diagnostic Findings CT OF THE HEAD WITHOUT CONTRAST CLINICAL HISTORY: Altered mental status. COMPARISON STUDY: Head CT June 21, 2019. CT DOSE: 614.27 mGy.cm TECHNIQUE: Helical axial images of the head were obtained without IV contrast. Automated exposure control was utilized for the study. A dose lowering technique was utilized adhering to the principles of ALARA. FINDINGS: No acute intracranial hemorrhage, midline shift or mass effect is present. The ventricular system is unremarkable. The basal cisterns are patent. No extra-axial collections are present. There are no findings to suggest acute dural sinus thrombosis or acute territorial infarct. No significant calvarial abnormalities are present. Visualized portions of the sinuses and mastoid air cells are clear. IMPRESSION: No acute intracranial findings. No change in appearance of the brain. XR chest 1V portable CLINICAL HISTORY: Chest pain. COMPARISON STUDY: Chest radiograph June 21, 2019. FINDINGS: Incidental note is made of postoperative findings within the right shoulder. There is no pneumothorax or pleural effusion. There is mild left basilar opacity. Right lung is clear. Cardiomediastinal silhouette is stable. There is no evidence for pulmonary edema. There is no pneumothorax or pleural effusion. IMPRESSION: 1. Mild left basilar opacity. Atelectasis is favored. 2. Cardiomegaly without evidence for pulmonary edema. Medications Administered Lorazepam (Lorazepam 0.5 Mg Tab) 0.5 mg PO DAILY PRN PRN Reason: anxiety Stop: 01/23/21 21:54 Last Admin: 12/24/20 21:58 Dose: 0.5 mg Documented by: [id number] ECG Additional Comments: Normal sinus rhythm Normal ECG When compared with ECG of 05-SEP-2017 18:49, No significant change was found Code Status & VTE Plan Code Status CODE: DNR/DNI VTE: SCD's/ Lovenox VTE Prophylaxis Plan VTE Prophylaxis will be ordered: Yes Supervising Physician Co-Signing Physician Notes Attending addendum: I have physically seen this patient, have supervised the GERARD's activities, and agree with the H&P unless as otherwise noted. Assessment and Plan: Encephalopathy- Presumptively associated with UTI. Follow urine culture and sensitivities Follow blood cultures and sensitivities empiric ceftriaxone Chest pain- Reproducible to his left 2nd-3rd interspace Monoclonal B-cell leukocytosis with CLL immunophenotype- Elevated WBC associate with CLL appears stable Peripheral smear has been sent Remaining orders and notations as noted PG Care Time/CCT Total # of Minutes Spent Total Time Spent with Patient: Total time spent is greater than 50% in coordination of care (as documented) at patient's floor/unit and/or counseling patient: Coding Level of Care Code 41661 Initial Inpt Care Lvl 3 Diagnoses Encephalopathy G93.40 Chest pain R07.9 Chest pain type: unspecified 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
[2020-12-24] MEDS ORDERED: cefTRIAXone SODIUM 1,000 MG in DEXTROSE 5% 50 ML IV SCH (22:15)
[2020-12-24] MEDS ORDERED: cefTRIAXone SODIUM 1000MG/50ML D5W IV ONE (22:20)
[2020-12-24 22:30] LABS: C Reactive Protein < 0.29 mg/dl (0-0.29)
[2020-12-24 22:50] LABS: Influenza A virus by PCR Negative (Neg); Influenza B virus by PCR Negative (Neg); RSV by PCR Negative (Neg); SARS CoV2 RNA(COVID-19) InHosp NEGATIVE (Negative)
[2020-12-24] MEDS ORDERED: DICLOFENAC SOD 1% GEL 100 GM TUBE EXT PRN (23:43)
[2020-12-24] MEDS ORDERED: LABETALOL HCL IV 5 MG/ML 20ML IV PRN (23:43)
[2020-12-24] MEDS ORDERED: ONDANSETRON INJ 2 MG/ML 2 ML VIAL IV PRN (23:43)
[2020-12-24] MEDS ORDERED: POLYETHYLENE (MIRALAX) 17 GM PACK PO PRN (23:43)
[2020-12-25] MEDS: ENOXAPARIN INJ 40 MG/0.4 ML SYR SQ SCH (08:42)
[2020-12-25] MEDS: TOCOPHERYL, DL-ALPHA 400 UNITS CAP PO SCH (08:43)
[2020-12-25 08:53] LABS: Estimated Average Glucose 131 mg/dl; Hemoglobin A1C 6.2 % (4.5-5.6)
[2020-12-25] MEDS ORDERED: ASPIRIN 81 MG ECTAB PO SCH (09:00)
[2020-12-25] MEDS: LORazepam 0.5 MG TAB PO PRN (13:24)
--- NOTE | 2020-12-25 15:53 | Electrocardiogram Report ---
Test Reason : Blood Pressure : / mmHG Vent. Rate : 097 BPM Atrial Rate : 097 BPM P-R Int : 174 ms QRS Dur : 088 ms QT Int : 360 ms P-R-T Axes : 048 040 038 degrees QTc Int : 457 ms Normal sinus rhythm Normal ECG When compared with ECG of 21-JUN-2019 15:02, No significant change was found Confirmed by Octavio Vazquez ([id number]) on 12/25/2020 3:52:46 PM Referred By: REFERRED SELF Confirmed By:Siva Vazquez
--- NOTE | 2020-12-25 17:16 | Hospitalist Progress Note ---
Date of Service December 25, 2020 Assessment & Plan (1) Dementia: Do *not* feel like she is encephalopathic at this time. Perhaps some amount of dehydration or benzo use as she uses this for anxiety at home. - Do not feel she has UTI as she has no symptoms (eg dysuria, fever, leukocytosis). - Will stop abx at this time. - PT/OT - TAP GRINDER evaluation for memory issues. PCP and daughter both indicate she has ongoing memory issues. - Will trend blood cultures, but urine sample grossly contaminated and do not feel culture will be beneficial. (2) Chest pain: Reproducible chest pain on the left 2-3rd intercostal space. ECG is unchanged. Troponins are negative. - One additional episode on 12/25 which occurred in the setting of becoming anxious & resolved with home lorazepam usage. 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 Peripheral smear on 12/25 showed no neutrophil predominance and no transition to more acute leukemia. - No inpatient needs (4) Hypertension: Not well-controlled. Patient recently stopped taking her ARB. Today is 150/75. - Labetalol PRN for SBP >180 (5) Anxiety: Chronic. Has trialed sertraline, escitalopram, and mirtazapine in the past for her depression and anxiety. Per PCP, patient stops them soon after. - Continue home Ativan dosing - Will minimize amount she gets as this medication is clearly on Beer's list and not ideal for a person her age. (6) Impaired fasting glucose: A1C in 06/2020 was 5.9%. This admission it was 6.2%. - Given age, no needs (7) DVT prophylaxis: Lovenox 40 mg SQ daily Admission and Anticipated Discharge Date Admission Date: December 24, 2020 Subjective Very sad today about being so tired. Reports no fevers/chills, chest pain, shortness of breath, abdominal pain, nausea, or vomiting. Physical Exam Constitutional: WD/WN, vitals as above Eyes: EOM intact bilaterally; no conjunctival abnormality ENMT: external ear and nose normal, oropharynx normal Neck: trachea midline, no thyromegaly normal visual inspection Respiratory: normal respiratory effort, lungs clear to auscultation no respiratory distress Cardiovascular: RRR, no murmur, no edema Gastrointestinal (Abdomen): Inspection/Auscultation: abdomen normal to inspection; abdomen not distended Musculoskeletal: no cyanosis or clubbing, extremities motor strength 5/5 Skin: no rashes, warm and dry Neurologic: moves all extremities and awake Psychiatric: Orientation: alert, oriented to person and cooperative Affect: + tearful affect Results & Data Results & Data ([facility] [place]) Vital Signs (Past 12 Hours) Vital Signs Temp Pulse Pulse Resp BP Pulse Ox 12/25/20 16:00 75 12/25/20 11:37 36.5 C 85 16 149/76 H 94 12/25/20 08:00 36.9 C 75 69 16 141/78 H 94 PG Care Time/CCT Total # of Minutes Spent Total Time Spent with Patient: Total time spent is greater than 50% in coordination of care (as documented) at patient's floor/unit and/or counseling patient: Coding Level of Care Code 25733 Subseq Hosp Care Lvl 2 Diagnoses Dementia F03.90 Chest pain R07.9 Chest pain type: unspecified 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
[2020-12-25] MEDS ORDERED: LORazepam 0.5 MG TAB PO STA (19:18)
--- NOTE | 2020-12-26 05:14 | Billing Data ---
Date of Service December 26, 2020 Coding Level of Care Code 93208 Initial Inpt Care Lvl 2
[2020-12-26 06:49] LABS: Hematocrit (blood only) 39.3 % (37-47); Mean Corpuscular Hemoglobin 31.4 pg (25-34); Mean Corpuscular Hgb Conc 33.1 g/dL (32-36); Mean Corpuscular Volume 94.9 fL (80-100); Mean Platelet Volume 11.4 fL (7.4-10.4); Platelet Count 130 K/uL (130-400); RDW Coefficient of Variation 14.3 % (11.5-14.5); RDW Standard Deviation 49.1 fL (36.4-46.3); Red Blood Count 4.14 M/uL (4.2-5.4); White Blood Count 34.84 K/uL (4.8-10.8)
[2020-12-26 07:22] LABS: BUN Creatinine Ratio 22.3 (10-20); Calcium 8.8 mg/dl (8.5-10.1); Creatinine Clr Calc Pharmacy 41.9 ml/min; Est GFR (African American) 55.7; Est GFR (Non-African American) 48.1; Magnesium 2.4 mg/dl (1.8-2.4); Potassium 4.3 mmol/L (3.5-5.1)
[2020-12-26] MEDS: TOCOPHERYL, DL-ALPHA 400 UNITS CAP PO SCH (08:07)
[2020-12-26] MEDS: ENOXAPARIN INJ 40 MG/0.4 ML SYR SQ SCH (08:08)
--- NOTE | 2020-12-26 15:32 | Discharge Summary ---
Date of Service December 26, 2020 Admission HPI Per Admitting Provider 85 YOF with past medical history of HTN, HLD, impaired fasting glucose, Monoclonal B-Cell lymphocytosis with CLL. She is pleasantly confused and most of the HPI from her daughter. She came to the emergency room today via her daughter for concerns of confusion and complaint of chest pain. She had a CT scan of her head performed in the EMD with no acute pathology noted and a normal CXR. She is noted to have an increase in WBC; lymphocyte predominance. Patient has been more fatigued for the past couple days and today the daughter was notified by her niece that she was confused. She then brought her to the EMD, she has no fevers or chills or other associated symptoms. She was seen at the beginning of November for diarrhea, nausea and vomitting with possible gastroenteritis, which her daughter said has improved and she returned to her normal function. Her chest pain she currently denying any pain and her breathing is regular with no hypoxia. For her CLL the patient has previously requested just serial lab monitoring and declined referral to hematology/oncolgy; she has also self discontinued her ARB and ASA. Her platelet count and RBC count is normal and is pending a peripheral review of her slide. Patient will be admitted for observation, urine with (+) LE, WBC 10-30 per HPF and epe cells >30; will put on broad spectrum while this speciates and blood cultures and procalcitonin are pending. Principal Diagnosis Dementia vs. benzodiazepine use MSK pain Discharge Exam Constitutional WD/WN, vitals as above Eyes EOM intact bilaterally; no conjunctival abnormality ENMT external ear and nose normal, oropharynx normal Neck trachea midline, no thyromegaly normal visual inspection Respiratory normal respiratory effort, lungs clear to auscultation no respiratory distress Cardiovascular RRR, no murmur, no edema Gastrointestinal (Abdomen) Inspection/Auscultation: abdomen normal to inspection; abdomen not distended Musculoskeletal no cyanosis or clubbing, extremities motor strength 5/5 Skin no rashes, warm and dry Neurologic moves all extremities and awake Psychiatric Orientation: alert, oriented to person and cooperative Affect: + tearful affect Discharge Data Allergies Allergy/AdvReac Type Severity Reaction Status Date / Time latex Allergy Mild ` Verified 12/24/20 20:38 Iodinated Contrast Media Allergy Unknown PT Verified 12/24/20 20:38 BELIEVES SHE IS ALLERGIC TO CONTRAST MEDIA NSAIDS (Non-Steroidal Allergy Unknown PT TAKES Verified 12/24/20 20:38 Anti-Inflamma BUFFERED ASA AT HOME Penicillins Allergy Unknown Unknown Verified 12/24/20 20:38 Sulfa (Sulfonamide Allergy Unknown Unknown Verified 12/24/20 20:38 Antibiotics) HEATH Inhibitors Allergy Unknown Verified 12/24/20 20:38 erythromycin base Allergy Unknown Verified 12/24/20 20:38 escitalopram [From Lexapro] Allergy Unknown Verified 12/24/20 20:38 Latex, Natural Rubber Allergy Unknown Verified 12/24/20 20:38 methocarbamol [From Robaxin] Allergy Unknown Verified 12/24/20 20:38 oxybutynin Allergy Unknown Verified 12/24/20 20:38 Jeckmxr-Qrb-Ahy Reductase Allergy Unknown Verified 12/24/20 20:38 Inhibitor tegaserod [From Zelnorm] Allergy Unknown Verified 12/24/20 20:38 milk AdvReac Unknown Verified 12/24/20 20:38 Consultations 12/24/20 20:37 ED Decision to Admit Stat Ordered Studies 12/24/20 18:47 CT head/brain wo con Stat Hospital Course (1) Dementia: Do *not* feel like she is encephalopathic at this time. Perhaps some amount of dehydration or benzo use as she uses this for anxiety at home. - Do not feel she has UTI as she has no symptoms (eg dysuria, fever, leukocytosis). - Received 2 doses of ceftriaxone in the hospital. - Will trend blood cultures, but urine sample grossly contaminated and do not feel culture will be beneficial. (2) Chest pain: Reproducible chest pain on the left 2-3rd intercostal space. ECG is unchanged. Troponins are negative. - One additional episode on 12/25 which occurred in the setting of becoming anxious & resolved with home lorazepam usage. 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 Peripheral smear on 12/25 showed no neutrophil predominance and no transition to more acute leukemia. - No inpatient needs (4) Hypertension: Not well-controlled. Patient recently stopped taking her ARB. Today is 135/70. - Labetalol PRN for SBP >180 (5) Anxiety: Chronic. Has trialed sertraline, escitalopram, and mirtazapine in the past for her depression and anxiety. Per PCP, patient stops them soon after. - Continue home Ativan dosing - Will minimize amount she gets as this medication is clearly on Beer's list and not ideal for a person her age. (6) Impaired fasting glucose: A1C in 06/2020 was 5.9%. This admission it was 6.2%. - Given age, no needs (7) DVT prophylaxis: Lovenox 40 mg SQ daily Total Time Total Time Spent Total Time Spent (In Minutes): 35 Discharge Plan Discharge Items Patient Disposition: Home - Self-Care Reason For Visit: ALTERED Discharge Diagnosis: Confusion Activity: Resume your previous activity Non-emergency contact: Primary Care Provider Call non-emergency contact if: your symptoms worsen Follow-up/Referrals: Aristides Bautista III, MD [Primary Care Provider] - Diet: Regular Addtl Attending Provider Instructions: Ms. Adams, You came to the hospital due to chest pain. We checked labs to look at your heart, and they were all healthy. Please use the lorazepam (Ativan) as sparingly as possible. Please follow up with Dr. Bautista at the next available appointment. Pending Studies at Discharge: No Stand-Alone Forms: My [facility] Tears for Life, Smoking Cessation Medications and DC Order Prescriptions: Continued diclofenac sodium [Voltaren] 1 % gel 4 gm TOPICAL QID PRN (Reason: Pain) Qty: 100 RF: 5 lorazepam 0.5 mg tablet 0.5 mg PO DAILY PRN (Reason: anxiety) Qty: 30 RF: 0 vitamin E 400 unit Capsule 400 unit PO DAILY RF: 0 Discharge Orders: Discharge Order (Routine); Ordered 12/26/20 Ordered By: Foster Moreno/Other Patient Handouts: A1C Admission Data Admit Date/Time: 12/24/20 21:50 Attending Provider: Foster Adams Admit Provider: Jose Garibay Primary Care Provider: Aristides Bautista III Other Providers: Foster Adams ; Jose Garibay Coding Level of Care Code D/C Day Management >30 mins Diagnoses Dementia F03.90 Chest pain R07.9 Chest pain type: unspecified Monoclonal B-cell lymphocytosis with chronic lymphocytic leukemia (CLL) im munophenotype D72.820; C91.10 Hypertension I10 Hypertension type: unspecified Anxiety F41.9 Impaired fasting glucose R73.01 DVT prophylaxis Z29.9
== END 2020-12-26 15:49 | disposition home or self-care (01) | DRG 884 ==
LOC: ED 18:27 → 1E 21:50 → SUATTDRO 21:50 → 1E 23:07 → 2N 12-25 17:16

== ENCOUNTER 2021-02-01 17:14 | Inpatient (IN) ==
--- NOTE | 2021-02-01 17:27 | Emergency Department Note ---
Impression & Plan Fracture, ribs, Fall ED Provider Note NAME: MELECIO MILTON AGE: 85 SEX: F : 1935 ARRIVES VIA: Walk-In INFORMANT: Patient, ED PROVIDER(S): Rehan Ortiz MD Chief Complaint: Fall HPI: Patient does present after a fall approximate 1 hour prior to arrival. The patient was reportedly trying to walk down the stairs from a trailer had fallen down the steps and landed in between the stairs and the trailer. No reported LOC and the patient does not take blood thinners. The patient does complain of neck back and chest pain. Patient denies any true shortness of breath. The patient is very hard of hearing. Patient did not take any pain medication prior to arrival. The daughter at bedside believes she may be a little bit more out of it compared to usual. The patient does have some chronic comprehension issues but no formal diagnosis of dementia or memory loss. Patient does have a known history of CLL. ROS: See HPI for pertinent positives and negatives. A total of 10 systems were reviewed and otherwise negative. Past medical history: See below Surgical history: See below Social history: See below Physical Exam: GENERAL: Wearing a mask. NAD, non-toxic. EYE EXAM: Normal conjunctiva. PERRL, no anisocoria and EOM's grossly intact w/o pain. NECK: Supple, no nuchal rigidity, no adenopathy, non-tender. No signs of meningismus. LUNGS: Clear to auscultation. Normal chest wall mechanics. Chest: Reproducible right-sided lower costal margin pain without obvious deformity crepitus or flail chest. HEART: NSR, no MRG. ABDOMEN: Abdomen soft, non-tender, normo-active bowel sounds, no masses, no rebound or guarding. BACK: Mild pain to the lower midline thoracic back without overlying skin changes or step-offs. Scant abrasions to the right lower back and left upper back. SKIN: No rashes and no bruising. UPPER EXTREMITIES: Upper extremities are grossly normal. Mild discomfort to the right shoulder with range of motion, no obvious deformity neurovascular intact distally. LOWER EXTREMITIES: Grossly normal, no edema. No TTP or obvious deformity. NEURO EXAM: A&O x3, cranial nerves II-XII grossly intact, normal speech, moves all 4 extremities on command w/o issue. Differential diagnoses: Fracture, dislocation, contusion, intra-abdominal, pneumothorax, intrathoracic, intracranial, neurologic, compartment syndrome, rhabdomyolysis, as well as other pathologies. Course: Patient was seen and evaluated the bedside. Full history physical exam was performed. EKG interpreted by me Indication: Fall Normal sinus rhythm, rate of 81, normal intervals, normal axis, no ST changes or T WI. No significant change from comparison EKG December 25, 2019. Imaging Studies: See below Cardiac monitoring: An order was placed for continuous cardiac monitoring. The monitor shows a rate of 75 with sinus rhythm. MDM: Patient was seen due to concern for fall chest back and neck pain. Patient has a white count of 31 but does have a known history of CLL. After discussion with the patient's daughter they are just watching this and do not intend to do anything with it in particular. Patient does have an increased lymphocyte count. Normal H&H and platelet count. Any function unremarkable. The patient's CAT scans do show right fifth and sixth rib fractures consistent with the patient's pain. Dependent airspace consolidation in both lung bases. Patient is not complaining of any cough. No pleural effusion or pneumothorax. There is adenopathy present which is likely consistent with the patient's CLL. The patient did have some hypoxia this was potentially attributable to the medications that she received that she did require pain medication as well as Benadryl. The Benadryl was needed as the patient does have a contrast allergy which cause hives. Thereafter the patient was trialed off oxygen the patient was still remained hypoxic at 89%. Given this with rib fractures do not believe it is unreasonable for the patient to be under observation. I did speak with the on-call hospitalist Dr. Velásquez and the patient was admitted to the medicine service. Past Med/Surg History Medical History Altered mental status Anxiety Depression Hyperlipidemia Hypertension Hypotension Impaired fasting glucose Neck pain Shortness of breath Syncopal episodes Surgical History H/O hysterectomy with oophorectomy History of appendectomy History of carpal tunnel surgery History of foot surgery Hx of cholecystectomy Family History Sister Arthritis Cancer Diabetes Coronary heart disease Hypertension Kidney disease Breast cancer Father Cerebral artery occlusion Heart disease Hypertension Myocardial infarction Daughter Cardiac disorder Hypertension Heart disease Son Cardiac disorder Hearing loss Other Family history non-contributory Denies family history of Ovarian cancer Prostate cancer Colorectal cancer Social History Smoking Status: Never smoker Second Hand Exposure: No; Hx Alcohol Use: No Hx Substance Use: No Preferred Language: Egyptian Communication Ability: Effective Visual Impairment: No Limitations Hearing Ability: Use of Hearing Aid [employer] Person Required: No Beliefs That Will Affect Care: None marital status: / Current Living Situation: Alone Current Living Situation Comment: she rents a trailer next to her family current occupational status: retired current occupation: worked making components of electronics Feels Safe at Home: Yes Childhood Exposure to Second-Hand Smoke: Yes Dental Care, Regularly: No Physical Activity Frequency: Does not Exercise Seatbelt Use: always Sunscreen Use: No Assistive Devices: Hearing Aid - Bilateral Allergies Allergies Allergy/AdvReac Type Severity Reaction Status Date / Time latex Allergy Mild ` Verified 02/01/21 22:18 Iodinated Contrast Media Allergy Unknown PT Verified 02/01/21 22:18 BELIEVES SHE IS ALLERGIC TO CONTRAST MEDIA NSAIDS (Non-Steroidal Allergy Unknown PT TAKES Verified 02/01/21 22:18 Anti-Inflamma BUFFERED ASA AT HOME Penicillins Allergy Unknown Unknown Verified 02/01/21 22:18 Sulfa (Sulfonamide Allergy Unknown Unknown Verified 02/01/21 22:18 Antibiotics) HEATH Inhibitors Allergy Unknown Verified 02/01/21 22:18 erythromycin base Allergy Unknown Verified 02/01/21 22:18 escitalopram [From Lexapro] Allergy Unknown Verified 02/01/21 22:18 Latex, Natural Rubber Allergy Unknown Verified 02/01/21 22:18 methocarbamol [From Robaxin] Allergy Unknown Verified 02/01/21 22:18 oxybutynin Allergy Unknown Verified 02/01/21 22:18 Zynjbix-Opd-Pvk Reductase Allergy Unknown Verified 02/01/21 22:18 Inhibitor tegaserod [From Zelnorm] Allergy Unknown Verified 02/01/21 22:18 milk AdvReac Unknown Verified 02/01/21 22:18 Home Meds Home Medications Medication Instructions Recorded Confirmed vitamin E 400 unit PO DAILY 10/04/18 02/01/21 Previous Rx's Medication Instructions Recorded diclofenac sodium 1 % topical gel 4 gm TOPICAL QID PRN #100 gm 12/16/19 lorazepam 0.5 mg tablet 0.5 mg PO DAILY PRN #30 tab 12/16/19 Results & Data (ED) Vital Signs Vital Signs - 24 hr 02/01/21 17:20 02/01/21 17:36 02/01/21 17:50 Temperature 36.4 C L Temperature Source Oral Pulse Rate 95 H 87 78 Pulse Rate from SpO2 Sensor 78 Respiratory Rate 18 20 20 Blood Pressure 163/95 H Blood Pressure Mean 117 Pulse Oximetry 95 98 94 Oxygen Delivery Method Room Air Room Air Oxygen Flow Rate Sepsis Recent Fever Within 48 Hours No Sepsis New/Unexplained Change in Mental Status No Sepsis Action Taken by Nursing No Action Required Oxygen Flow Rate - Titration Pulse Oximetry Post Tiitration 02/01/21 18:00 02/01/21 18:15 02/01/21 18:30 Temperature Temperature Source Pulse Rate 75 80 76 Pulse Rate from SpO2 Sensor 75 80 76 Respiratory Rate 16 21 18 Blood Pressure Blood Pressure Mean Pulse Oximetry 95 95 97 Oxygen Delivery Method Oxygen Flow Rate Sepsis Recent Fever Within 48 Hours Sepsis New/Unexplained Change in Mental Status Sepsis Action Taken by Nursing Oxygen Flow Rate - Titration Pulse Oximetry Post Tiitration 02/01/21 18:45 02/01/21 18:56 02/01/21 19:00 Temperature Temperature Source Pulse Rate 75 75 77 Pulse Rate from SpO2 Sensor 75 75 75 Respiratory Rate 18 21 17 Blood Pressure 153/79 H Blood Pressure Mean 103 Pulse Oximetry 96 99 100 Oxygen Delivery Method Oxygen Flow Rate Sepsis Recent Fever Within 48 Hours Sepsis New/Unexplained Change in Mental Status Sepsis Action Taken by Nursing Oxygen Flow Rate - Titration Pulse Oximetry Post Tiitration 02/01/21 19:10 02/01/21 19:15 02/01/21 19:43 Temperature Temperature Source Pulse Rate 69 70 87 Pulse Rate from SpO2 Sensor 70 71 Respiratory Rate 16 20 14 Blood Pressure 155/97 H Blood Pressure Mean 116 Pulse Oximetry 100 100 Oxygen Delivery Method Oxygen Flow Rate Sepsis Recent Fever Within 48 Hours Sepsis New/Unexplained Change in Mental Status Sepsis Action Taken by Nursing Oxygen Flow Rate - Titration Pulse Oximetry Post Tiitration 02/01/21 19:50 02/01/21 20:00 02/01/21 20:01 Temperature Temperature Source Pulse Rate 82 81 82 Pulse Rate from SpO2 Sensor 82 81 82 Respiratory Rate 15 18 20 Blood Pressure 179/87 H Blood Pressure Mean 117 Pulse Oximetry 89 L 91 89 L Oxygen Delivery Method Oxygen Flow Rate Sepsis Recent Fever Within 48 Hours Sepsis New/Unexplained Change in Mental Status Sepsis Action Taken by Nursing Oxygen Flow Rate - Titration Pulse Oximetry Post Tiitration 02/01/21 20:04 02/01/21 20:10 02/01/21 20:16 Temperature Temperature Source Pulse Rate 74 77 Pulse Rate from SpO2 Sensor 73 77 Respiratory Rate 18 21 Blood Pressure 164/110 H Blood Pressure Mean 128 Pulse Oximetry 87 L 100 100 Oxygen Delivery Method Room Air Oxygen Flow Rate 0 Sepsis Recent Fever Within 48 Hours Sepsis New/Unexplained Change in Mental Status Sepsis Action Taken by Nursing Oxygen Flow Rate - Titration 2 Pulse Oximetry Post Tiitration 97 02/01/21 20:20 02/01/21 20:32 02/01/21 20:33 Temperature Temperature Source Pulse Rate 73 90 85 Pulse Rate from SpO2 Sensor 73 85 Respiratory Rate 15 19 19 Blood Pressure 149/84 H Blood Pressure Mean 105 Pulse Oximetry 100 91 Oxygen Delivery Method Oxygen Flow Rate Sepsis Recent Fever Within 48 Hours Sepsis New/Unexplained Change in Mental Status Sepsis Action Taken by Nursing Oxygen Flow Rate - Titration Pulse Oximetry Post Tiitration 02/01/21 20:40 02/01/21 20:45 02/01/21 20:50 Temperature Temperature Source Pulse Rate 76 76 76 Pulse Rate from SpO2 Sensor 76 76 77 Respiratory Rate 20 21 18 Blood Pressure 131/70 Blood Pressure Mean 90 Pulse Oximetry 100 100 100 Oxygen Delivery Method Oxygen Flow Rate Sepsis Recent Fever Within 48 Hours Sepsis New/Unexplained Change in Mental Status Sepsis Action Taken by Nursing Oxygen Flow Rate - Titration Pulse Oximetry Post Tiitration 02/01/21 21:00 02/01/21 21:01 02/01/21 21:10 Temperature Temperature Source Pulse Rate 70 74 79 Pulse Rate from SpO2 Sensor 68 74 79 Respiratory Rate 18 17 19 Blood Pressure 146/77 H Blood Pressure Mean 100 Pulse Oximetry 91 100 93 Oxygen Delivery Method Oxygen Flow Rate Sepsis Recent Fever Within 48 Hours Sepsis New/Unexplained Change in Mental Status Sepsis Action Taken by Nursing Oxygen Flow Rate - Titration Pulse Oximetry Post Tiitration 02/01/21 21:15 02/01/21 21:17 Temperature Temperature Source Pulse Rate 75 Pulse Rate from SpO2 Sensor 75 Respiratory Rate 16 Blood Pressure 132/64 Blood Pressure Mean 86 Pulse Oximetry 97 89 L Oxygen Delivery Method Room Air Oxygen Flow Rate Sepsis Recent Fever Within 48 Hours Sepsis New/Unexplained Change in Mental Status Sepsis Action Taken by Nursing Oxygen Flow Rate - Titration Pulse Oximetry Post Tiitration Home Medications Current Medication List: was personally reviewed by me Laboratory Data Attestation: I reviewed the patient's lab results. Result diagrams: 02/01/21 18:30 02/01/21 18:30 Lab Results 02/01/21 02/01/21 02/01/21 Range/Units 18:30 18:30 18:30 WBC 31.81 H* (4.8-10.8) K/uL RBC 4.20 (4.2-5.4) M/uL Hgb 13.6 (12.0-16.0) g/dL POC Hgb (12.0-16.0) g/dl Hct 39.7 (37-47) % POC Hct (37-47) % MCV 94.5 (80-100) fL MCH 32.4 (25-34) pg MCHC 34.3 (32-36) g/dL RDW Std Deviation 49.3 H (36.4-46.3) fL RDW Coeff of Billy 14.4 (11.5-14.5) % Plt Count 136 (130-400) K/uL MPV 11.3 H (7.4-10.4) fL Immature Gran % (Auto) 0.3 % Neut % (Auto) 22.0 % Lymph % (Auto) 74.2 % [place] % (Auto) 3.3 % Eos % (Auto) 0.0 % Baso % (Auto) 0.2 % Neut # (Auto) 6.96 H (1.4-6.5) K/uL Lymph # (Auto) 23.60 H (1.2-3.4) K/uL [place] # (Auto) 1.06 H (0.11-0.59) K/uL Eos # (Auto) 0.01 (0-0.5) K/uL Baso # (Auto) 0.07 (0-0.2) K/uL Immature Gran # (Auto) 0.11 H (0.00-0.02) K/uL RBC Morphology Unremarkable PT 10.5 (9.0-12.0) Seconds INR 1.0 (0.9-1.1) POC Sodium (135-144) mmol/L Sodium 140 (136-145) mmol/L POC Potassium (3.3-5.0) mmol/L Potassium 4.2 (3.5-5.1) mmol/L POC Chloride (101-112) mmol/L Chloride 108 H (98-107) mmol/L Carbon Dioxide 27 (21-32) mmol/L POC Total CO2 (24-31) mmol/L Anion Gap 5.0 (3-11) POC Anion Gap (16-25) mmol/L POC BUN (7-18) mg/dl BUN 21 H (7-18) mg/dl Creatinine 1.02 (0.6-1.2) mg/dl POC Creatinine (0.6-1.3) mg/dl Est Cr Clr Drug Dosing 42.1 ml/min Est GFR ( Amer) 57.7 Est GFR (Non-Af Amer) 49.8 BUN/Creatinine Ratio 20.6 H (10-20) Glucose 106 H (70-99) mg/dl POC Glucose (other) (70-99) mg/dl Calcium 9.3 (8.5-10.1) mg/dl POC Ioniz Calcium Daysi (1.12-1.32) mmol/l Total Bilirubin 0.9 (0.2-1) mg/dl AST 50 H (15-37) U/L ALT 54 (12-78) U/L Alkaline Phosphatase 43 L (45-117) U/L Total Protein 7.0 (6.4-8.2) gm/dl Albumin 4.2 (3.4-5.0) gm/dl Globulin 2.8 (2.5-4.0) gm/dl Albumin/Globulin Ratio 1.5 (0.9-2) 02/01/21 Range/Units 18:37 WBC (4.8-10.8) K/uL RBC (4.2-5.4) M/uL Hgb (12.0-16.0) g/dL POC Hgb 13.6 (12.0-16.0) g/dl Hct (37-47) % POC Hct 40 (37-47) % MCV (80-100) fL MCH (25-34) pg MCHC (32-36) g/dL RDW Std Deviation (36.4-46.3) fL RDW Coeff of Billy (11.5-14.5) % Plt Count (130-400) K/uL MPV (7.4-10.4) fL Immature Gran % (Auto) % Neut % (Auto) % Lymph % (Auto) % [place] % (Auto) % Eos % (Auto) % Baso % (Auto) % Neut # (Auto) (1.4-6.5) K/uL Lymph # (Auto) (1.2-3.4) K/uL [place] # (Auto) (0.11-0.59) K/uL Eos # (Auto) (0-0.5) K/uL Baso # (Auto) (0-0.2) K/uL Immature Gran # (Auto) (0.00-0.02) K/uL RBC Morphology PT (9.0-12.0) Seconds INR (0.9-1.1) POC Sodium 140 (135-144) mmol/L Sodium (136-145) mmol/L POC Potassium 4.2 (3.3-5.0) mmol/L Potassium (3.5-5.1) mmol/L POC Chloride 104 (101-112) mmol/L Chloride (98-107) mmol/L Carbon Dioxide (21-32) mmol/L POC Total CO2 26 (24-31) mmol/L Anion Gap (3-11) POC Anion Gap 15.0 L (16-25) mmol/L POC BUN 21 H (7-18) mg/dl BUN (7-18) mg/dl Creatinine (0.6-1.2) mg/dl POC Creatinine 1.0 (0.6-1.3) mg/dl Est Cr Clr Drug Dosing ml/min Est GFR ( Amer) Est GFR (Non-Af Amer) BUN/Creatinine Ratio (10-20) Glucose (70-99) mg/dl POC Glucose (other) 109 H (70-99) mg/dl Calcium (8.5-10.1) mg/dl POC Ioniz Calcium Daysi 1.24 (1.12-1.32) mmol/l Total Bilirubin (0.2-1) mg/dl AST (15-37) U/L ALT (12-78) U/L Alkaline Phosphatase (45-117) U/L Total Protein (6.4-8.2) gm/dl Albumin (3.4-5.0) gm/dl Globulin (2.5-4.0) gm/dl Albumin/Globulin Ratio (0.9-2) Administered Medications Discontinued Medications Diphenhydramine HCl (Diphenhydramine 50 Mg/Ml Vial) 25 mg IV NOW STA Stop: 02/01/21 17:45 Last Admin: 02/01/21 18:46 Dose: 25 mg Documented by: [id number] Ioversol (Optiray 300 100ml) 87 ml IV ONCE ONE Stop: 02/01/21 19:28 Last Admin: 02/01/21 19:28 Dose: 87 ml Documented by: [id number] Morphine Sulfate (Morphine Sulfate 4 Mg/Ml 1 Ml Carp\Vial) 4 mg IV ONE PRN PRN Reason: Pain Last Admin: 02/01/21 18:47 Dose: 4 mg Documented by: [id number] Ondansetron HCl (Ondansetron Inj 2 Mg/Ml 2 Ml Vial) 4 mg IV NOW STA Stop: 02/01/21 17:37 Last Admin: 02/01/21 18:47 Dose: 4 mg Documented by: [id number] Imaging Data Radiologist's Impression: Abdomen/Pelvis CT 02/01/21 17:36 CT SCAN OF THE CHEST, ABDOMEN, AND PELVIS WITH IV CONTRAST; CT SCAN OF THE THORACIC SPINE WITHOUT IV CONTRAST; CT SCAN OF THE LUMBAR SPINE WITHOUT IV CONTRAST CLINICAL HISTORY: Trauma. Fall down stairs. COMPARISON STUDY: Chest CT, abdomen, and pelvis dated 07/22/2010. Abdominal CT dated 10/05/2018. TECHNIQUE: Following the IV administration of 87 of Optiray 300, CT scan of the chest, abdomen, and pelvis was performed from the thoracic inlet to the proximal femora. Images are reviewed in the axial, sagittal, and coronal planes. IV contrast was administered without complication. Additionally, unenhanced CT scan of the thoracic spine is performed from the lower cervical spine to the upper lumbar spine and unenhanced CT scan of lumbar spine is performed from the lower thoracic spine to the sacrum. The thoracic and lumbar spinal CT scans are reviewed in the axial, sagittal, and coronal planes. IV contrast was not administered specifically for the spinal CTs. A dose lowering technique was utilized adhering to the principles of ALARA. CT DOSE: 3055.31 mGy.cm FINDINGS: CHEST: Thyroid: Imaged portions of the thyroid gland are normal in size and attenuat ion. Thoracic aorta: There is mild atherosclerotic calcification of the thoracic aorta, which is normal in caliber and demonstrates bovine variant arch anatomy. No dissection is seen. Pulmonary vasculature: The pulmonary trunk is normal in caliber. There are no filling defects identified in the central pulmonary vessels to indicate pulmonary embolus. Note that this examination was not protocoled for evaluation of the pulmonary arteries. Heart: The heart is enlarged and without pericardial effusion. The coronary arteries are densely calcified. Lungs and pleural spaces: Evaluation of the lung parenchyma is degraded by motion artifact. The trachea and central airways are clear. Dependent co nsolidation is seen at both lung bases. No pleural effusion or pneumothorax is identified. There is a 9 mm pulmonary nodule in the right middle lobe seen on image #166. This has increased in size as compared to 2010. A 5 mm right upper lobe pulmonary nodule image #102 has also increased in size from 2010. A 1.3 cm curvilinear structure at the left lung base on image #176 has been present dating back to at least 2009 and may represent an impacted bronchus. Mediastinum: There are numerous subcentimeter mediastinal lymph nodes. No mediastinum hematoma is identified. [place]: Prominent hilar nodes measure up to 13 mm in short axis. Axillae: There are numerous mildly enlarged bilateral axillary lymph nodes. The largest is seen on the right and measures 2.2 x 1.7 cm. This is new from 07/22/2010. Bony thorax: The skeletal structures are osteopenic. See below for dedicated assessment of the thoracic spine. No lytic or blastic lesions are identified. Advanced arthritic change is seen in the shoulders. Postoperative change is noted in the right humeral head. There are acute appearing nondisplaced right anterolateral 5th and 6th rib fractures. THORACIC SPINE: There is no evidence of acute fracture or malalignment. There are mild chronic superior endplate compression deformities of T4, T5, T6, and T7. These been present dating back to 2009. Vertebral body height is otherwise maintained. Alignment is preserved. Mild hyperkyphosis is noted. Small anterior osteophytes are seen throughout. The transverse and spinous processes are intact. There is mild multilevel degenerative disc space narrowing. There is no evidence of large disc herniation or high-grade central canal stenosis by CT. The paraspinous soft tissues are normal in appearance. ABDOMEN AND PELVIS: Liver: The contrast-enhanced liver is normal in size, contour, and attenuation. There is mild intrahepatic biliary ductal dilatation. The hepatic veins and portal veins are patent. Gallbladder: Surgically absent noting clips in the gallbladder fossa. Spleen: The spleen is mildly enlarged measuring 13.8 cm in length. Pancreas: Moderately atrophic and grossly unremarkable. Adrenal glands: Unremarkable. Kidneys: The contrast enhanced kidneys demonstrate cortical atrophy and are without hydronephrosis. There is a 4.2 cm cyst in the interpolar left kidney. Additional subcentimeter cortical hypodensities also likely represent cysts but are too small for definitive characterization. Parapelvic cysts are noted on the left. The kidneys enhance symmetrically. Abdominal vasculature: The abdominal aorta is normal in course and caliber noting advanced atherosclerotic calcification. Stomach and bowel: There is a small hiatal hernia. There is advanced diverticulosis of the left colon without CT evidence of acute diverticulitis. No bowel obstruction is seen. The appendix is not identified. Peritoneum: There is no intraperitoneal free air or abdominal ascites. Lymphadenopathy: A mildly enlarged left iliac chain node on image #262 measures 1.4 x 1.3 cm. A right external iliac chain node on image #381 measures 3.3 x 1.4 cm. Pelvic viscera: The bladder is normal as visualized. The uterus is surgically absent. No adnexal lesion is seen. Skeletal structures: The skeletal structures are osteopenic. See below for dedicated assessment of the lumbar spine. No lytic or blastic lesions are seen. The bony pelvis and proximal femora appear intact. LUMBAR SPINE: There is no evidence of fracture or malalignment. Vertebral body height and alignment are maintained throughout the lumbar spine. The transverse and spinous processes are intact. There is no evidence of spondylolysis. Moderate to advanced disc space narrowing is seen at L4-L5 and L5-S1. Posterior disc osteophyte complexes are seen at all lumbar levels between L2-L3 and L5-S1. This likely contributes to multilevel acquired compromise of the central canal. Facet arthropathy is noted in the lower lumbar region. A large hemangioma is seen in the body of L1. The paraspinous soft tissues are within normal limits. IMPRESSION: 1. There are acute appearing right anterolateral 5th and 6th rib fractures. 2. Dependent airspace consolidation is present at both lung bases. This could represent atelectasis versus pneumonia/aspiration pneumonitis. Clinical correlation will be required. 3. There is no pleural effusion or pneumothorax. 4. Cardiomegaly. 5. There is no evidence of solid organ injury in the abdomen or pelvis. 6. There is no evidence of fracture or malalignment involving the thoracic spine. 7. There is no evidence of fracture or malalignment involving the lumbar spine. 8. There is bilateral axillary lymphadenopathy. There are also mildly enlarged iliac chain and external iliac lymph nodes. The spleen is also mildly enlarged. These findings are similar to the 10/05/2018 examination; however, the axillary adenopathy is new from 07/22/2010. The appearance suggests a low-grade lymphoproliferative disorder such as CLL. Correlation with a medical/oncological history will be essential. 9. There are 2 subcentimeter pulmonary nodules in the right lung. These have modestly increased in size in the back to 2009 and are of low suspicion given the time course. 10. Additional findings as above. ACT 112: Negative or not required by law. Electronically signed by: Sanju Braga M.D. 02/01/2021 8:[address] 02/01/21 17:36 CT SCAN OF THE CERVICAL SPINE CLINICAL HISTORY: Trauma. Fall down stairs. COMPARISON STUDY: CT of the cervical spine dated 10/04/2018. TECHNIQUE: CT scan of the cervical spine is performed from the skull base to the upper thoracic spine. Images are reviewed in the axial, sagittal, and coronal planes. IV contrast was not administered for this examination. A dose lowering technique was utilized adhering to the principles of ALARA. FINDINGS: Skeletal structures: The skeletal structures are osteopenic. There is no evidence of fracture or subluxation involving the cervical spine. Vertebral body height is maintained. There is minimal anterolisthesis at C3-C4 and C7-T1. Alignment is otherwise preserved. There is straightening of the cervical lordosis with reversal centered at C4-C5. Anterior osteophytes are seen throughout. The odontoid process and lateral masses are intact. The atlantoaxial articulation is preserved noting productive degenerative change. The spinous processes appear intact. There is moderate multilevel cervical spondylosis. Uncovertebral and facet arthropathy contribute to neural foraminal narrowing at several levels. Intervertebral discs: Mild to moderate disc space narrowing is seen at all cervical levels. Central canal: Posterior disc osteophyte complexes are seen at all levels between C3-C4 and C6-C7. This likely contributes to multilevel acquired compromise of the central canal. Soft tissues: The prevertebral and paraspinous soft tissues are within normal limits. There are shotty cervical lymph nodes. These measure up to 11 mm in length and are similar in appearance to the 10/04/2018 examination. There is mild atherosclerotic calcification of the carotid bulbs. Calvarium: The visualized calvarium at the skull base appears intact. Brain parenchyma: Partially visualized brain parenchyma at the skull base is within normal limits. Sinuses and mastoids: The visualized paranasal sinuses are clear. There are small mastoid effusions. Lung apices: Clear as visualized. IMPRESSION: 1. There is no evidence of fracture or subluxation involving the cervical spine. 2. Osteopenia and spondylotic change as above. ACT 112: Negative or not required by law. Electronically signed by: Sanju Braga M.D. 02/01/2021 7:[address] 02/01/21 17:36 CT SCAN OF THE CHEST, ABDOMEN, AND PELVIS WITH IV CONTRAST; CT SCAN OF THE THORACIC SPINE WITHOUT IV CONTRAST; CT SCAN OF THE LUMBAR SPINE WITHOUT IV CONTRAST CLINICAL HISTORY: Trauma. Fall down stairs. COMPARISON STUDY: Chest CT, abdomen, and pelvis dated 07/22/2010. Abdominal CT dated 10/05/2018. TECHNIQUE: Following the IV administration of 87 of Optiray 300, CT scan of the chest, abdomen, and pelvis was performed from the thoracic inlet to the proximal femora. Images are reviewed in the axial, sagittal, and coronal planes. IV contrast was administered without complication. Additionally, unenhanced CT scan of the thoracic spine is performed from the lower cervical spine to the upper lumbar spine and unenhanced CT scan of lumbar spine is performed from the lower thoracic spine to the sacrum. The thoracic and lumbar spinal CT scans are reviewed in the axial, sagittal, and coronal planes. IV contrast was not administered specifically for the spinal CTs. A dose lowering technique was utilized adhering to the principles of ALARA. CT DOSE: 3055.31 mGy.cm FINDINGS: CHEST: Thyroid: Imaged portions of the thyroid gland are normal in size and attenuation. Thoracic aorta: There is mild atherosclerotic calcification of the thoracic aorta, which is normal in caliber and demonstrates bovine variant arch anatomy. No dissection is seen. Pulmonary vasculature: The pulmonary trunk is normal in caliber. There are no filling defects identified in the central pulmonary vessels to indicate pulmonary embolus. Note that this examination was not protocoled for evaluation of the pulmonary arteries. Heart: The heart is enlarged and without pericardial effusion. The coronary arteries are densely calcified. Lungs and pleural spaces: Evaluation of the lung parenchyma is degraded by motion artifact. The trachea and central airways are clear. Dependent consolidation is seen at both lung bases. No pleural effusion or pneumothorax is identified. There is a 9 mm pulmonary nodule in the right middle lobe seen on image #166. This has increased in size as compared to 2010. A 5 mm right upper lobe pulmonary nodule image #102 has also increased in size from 2010. A 1.3 cm curvilinear structure at the left lung base on image #176 has been present dating back to at least 2009 and may represent an impacted bronchus. Mediastinum: There are numerous subcentimeter mediastinal lymph nodes. No mediastinum hematoma is identified. Aleyda: Prominent hilar nodes measure up to 13 mm in short axis. Axillae: There are numerous mildly enlarged bilateral axillary lymph nodes. The largest is seen on the right and measures 2.2 x 1.7 cm. This is new from 07/22/2010. Bony thorax: The skeletal structures are osteopenic. See below for dedicated assessment of the thoracic spine. No lytic or blastic lesions are identified. Advanced arthritic change is seen in the shoulders. Postoperative change is noted in the right humeral head. There are acute appearing nondisplaced right anterolateral 5th and 6th rib fractures. THORACIC SPINE: There is no evidence of acute fracture or malalignment. There are mild chronic superior endplate compression deformities of T4, T5, T6, and T7. These been present dating back to 2009. Vertebral body height is otherwise maintained. Alignment is preserved. Mild hyperkyphosis is noted. Small anterior osteophytes are seen throughout. The transverse and spinous processes are intact. There is mild multilevel degenerative disc space narrowing. There is no evidence of large disc herniation or high-grade central canal stenosis by CT. The paraspinous soft tissues are normal in appearance. ABDOMEN AND PELVIS: Liver: The contrast-enhanced liver is normal in size, contour, and attenuation. There is mild intrahepatic biliary ductal dilatation. The hepatic veins and portal veins are patent. Gallbladder: Surgically absent noting clips in the gallbladder fossa. Spleen: The spleen is mildly enlarged measuring 13.8 cm in length. Pancreas: Moderately atrophic and grossly unremarkable. Adrenal glands: Unremarkable. Kidneys: The contrast enhanced kidneys demonstrate cortical atrophy and are without hydronephrosis. There is a 4.2 cm cyst in the interpolar left kidney. Additional subcentimeter cortical hypodensities also likely represent cysts but are too small for definitive characterization. Parapelvic cysts are noted on the left. The kidneys enhance symmetrically. Abdominal vasculature: The abdominal aorta is normal in course and caliber noting advanced atherosclerotic calcification. Stomach and bowel: There is a small hiatal hernia. There is advanced diverticulosis of the left colon without CT evidence of acute diverticulitis. No bowel obstruction is seen. The appendix is not identified. Peritoneum: There is no intraperitoneal free air or abdominal ascites. Lymphadenopathy: A mildly enlarged left iliac chain node on image #262 measures 1.4 x 1.3 cm. A right external iliac chain node on image #381 measures 3.3 x 1.4 cm. Pelvic viscera: The bladder is normal as visualized. The uterus is surgically absent. No adnexal lesion is seen. Skeletal structures: The skeletal structures are osteopenic. See below for dedicated assessment of the lumbar spine. No lytic or blastic lesions are seen. The bony pelvis and proximal femora appear intact. LUMBAR SPINE: There is no evidence of fracture or malalignment. Vertebral body height and alignment are maintained throughout the lumbar spine. The transverse and spinous processes are intact. There is no evidence of spondylolysis. Moderate to advanced disc space narrowing is seen at L4-L5 and L5-S1. Posterior disc osteophyte complexes are seen at all lumbar levels between L2-L3 and L5-S1. This likely contributes to multilevel acquired compromise of the central canal. Facet arthropathy is noted in the lower lumbar region. A large hemangioma is seen in the body of L1. The paraspinous soft tissues are within normal limits. IMPRESSION: 1. There are acute appearing right anterolateral 5th and 6th rib fractures. 2. Dependent airspace consolidation is present at both lung bases. This could represent atelectasis versus pneumonia/aspiration pneumonitis. Clinical correlation will be required. 3. There is no pleural effusion or pneumothorax. 4. Cardiomegaly. 5. There is no evidence of solid organ injury in the abdomen or pelvis. 6. There is no evidence of fracture or malalignment involving the thoracic spine. 7. There is no evidence of fracture or malalignment involving the lumbar spine. 8. There is bilateral axillary lymphadenopathy. There are also mildly enlarged iliac chain and external iliac lymph nodes. The spleen is also mildly enlarged. These findings are similar to the 10/05/2018 examination; however, the axillary adenopathy is new from 07/22/2010. The appearance suggests a low-grade lymphoproliferative disorder such as CLL. Correlation with a medical/oncological history will be essential. 9. There are 2 subcentimeter pulmonary nodules in the right lung. These have modestly increased in size in the back to 2009 and are of low suspicion given the time course. 10. Additional findings as above. ACT 112: Negative or not required by law. Electronically signed by: Sanju Braga M.D. 02/01/2021 8:[address] 02/01/21 17:36 CT SCAN OF THE BRAIN WITHOUT IV CONTRAST CLINICAL HISTORY: Fall down stairs. COMPARISON STUDY: CT of the brain dated 12/24/2020. TECHNIQUE: Unenhanced axial CT scan of the brain is performed from the vertex to the skull base. A dose lowering technique was utilized adhering to the principles of ALARA. FINDINGS: Brain parenchyma: There are age-related involutional changes noting mild subcortical and periventricular microangiopathic change. There is no hemorrhage, mass effect, or evidence of acute territorial ischemia by CT criteria. T[place]well- white matter differentiation is preserved. No extra-axial fluid collection is seen. Ventricles, sulci, cisterns: Prominent secondary to involutional change. Intracranial vasculature: There is atherosclerotic calcification of the cavernous carotid and vertebral arteries. Calvarium: The skeletal structures are osteopenic. No depressed calvarial fra cture is identified. Sinuses and mastoids: The visualized paranasal sinuses are clear. Small mastoid effusions are noted. Orbits: The bony orbits are grossly intact. There are bilateral ocular lens implants. IMPRESSION: There is no hemorrhage, mass effect, or evidence of acute territorial ischemia by CT criteria. ACT 112: Negative or not required by law. Electronically signed by: Sanju Braga M.D. 02/01/2021 7:[address] 02/01/21 17:36 CT SCAN OF THE CHEST, ABDOMEN, AND PELVIS WITH IV CONTRAST; CT SCAN OF THE THORACIC SPINE WITHOUT IV CONTRAST; CT SCAN OF THE LUMBAR SPINE WITHOUT IV CONTRAST CLINICAL HISTORY: Trauma. Fall down stairs. COMPARISON STUDY: Chest CT, abdomen, and pelvis dated 07/22/2010. Abdominal CT dated 10/05/2018. TECHNIQUE: Following the IV administration of 87 of Optiray 300, CT scan of the chest, abdomen, and pelvis was performed from the thoracic inlet to the proximal femora. Images are reviewed in the axial, sagittal, and coronal planes. IV contrast was administered without complication. Additionally, unenhanced CT scan of the thoracic spine is performed from the lower cervical spine to the upper lumbar spine and unenhanced CT scan of lumbar spine is performed from the lower thoracic spine to the sacrum. The thoracic and lumbar spinal CT scans are reviewed in the axial, sagittal, and coronal planes. IV contrast was not administered specifically for the spinal CTs. A dose lowering technique was utilized adhering to the principles of ALARA. CT DOSE: 3055.31 mGy.cm FINDINGS: CHEST: Thyroid: Imaged portions of the thyroid gland are normal in size and attenuation. Thoracic aorta: There is mild atherosclerotic calcification of the thoracic aorta, which is normal in caliber and demonstrates bovine variant arch anatomy. No dissection is seen. Pulmonary vasculature: The pulmonary trunk is normal in caliber. There are no filling defects identified in the central pulmonary vessels to indicate pulmonary embolus. Note that this examination was not protocoled for evaluation of the pulmonary arteries. Heart: The heart is enlarged and without pericardial effusion. The coronary arteries are densely calcified. Lungs and pleural spaces: Evaluation of the lung parenchyma is degraded by motion artifact. The trachea and central airways are clear. Dependent consolidation is seen at both lung bases. No pleural effusion or pneumothorax is identified. There is a 9 mm pulmonary nodule in the right middle lobe seen on image #166. This has increased in size as compared to 2010. A 5 mm right upper lobe pulmonary nodule image #102 has also increased in size from 2010. A 1.3 cm curvilinear structure at the left lung base on image #176 has been present dating back to at least 2009 and may represent an impacted bronchus. Mediastinum: There are numerous subcentimeter mediastinal lymph nodes. No mediastinum hematoma is identified. Aleyda: Prominent hilar nodes measure up to 13 mm in short axis. Axillae: There are numerous mildly enlarged bilateral axillary lymph nodes. The largest is seen on the right and measures 2.2 x 1.7 cm. This is new from 07/22/2010. Bony thorax: The skeletal structures are osteopenic. See below for dedicated assessment of the thoracic spine. No lytic or blastic lesions are identified. Advanced arthritic change is seen in the shoulders. Postoperative change is noted in the right humeral head. There are acute appearing nondisplaced right anterolateral 5th and 6th rib fractures. THORACIC SPINE: There is no evidence of acute fracture or malalignment. There are mild chronic superior endplate compression deformities of T4, T5, T6, and T7. These been present dating back to 2009. Vertebral body height is otherwise maintained. Alignment is preserved. Mild hyperkyphosis is noted. Small anterior osteophytes are seen throughout. The transverse and spinous processes are intact. There is mild multilevel degenerative disc space narrowing. There is no evidence of large disc herniation or high-grade central canal stenosis by CT. The paraspinous soft tissues are normal in appearance. ABDOMEN AND PELVIS: Liver: The contrast-enhanced liver is normal in size, contour, and attenuation. There is mild intrahepatic biliary ductal dilatation. The hepatic veins and portal veins are patent. Gallbladder: Surgically absent noting clips in the gallbladder fossa. Spleen: The spleen is mildly enlarged measuring 13.8 cm in length. Pancreas: Moderately atrophic and grossly unremarkable. Adrenal glands: Unremarkable. Kidneys: The contrast enhanced kidneys demonstrate cortical atrophy and are without hydronephrosis. There is a 4.2 cm cyst in the interpolar left kidney. Additional subcentimeter cortical hypodensities also likely represent cysts but are too small for definitive characterization. Parapelvic cysts are noted on the left. The kidneys enhance symmetrically. Abdominal vasculature: The abdominal aorta is normal in course and caliber noting advanced atherosclerotic calcification. Stomach and bowel: There is a small hiatal hernia. There is advanced diverticulosis of the left colon without CT evidence of acute diverticulitis. No bowel obstruction is seen. The appendix is not identified. Peritoneum: There is no intraperitoneal free air or abdominal ascites. Lymphadenopathy: A mildly enlarged left iliac chain node on image #262 measures 1.4 x 1.3 cm. A right external iliac chain node on image #381 measures 3.3 x 1.4 cm. Pelvic viscera: The bladder is normal as visualized. The uterus is surgically absent. No adnexal lesion is seen. Skeletal structures: The skeletal structures are osteopenic. See below for dedicated assessment of the lumbar spine. No lytic or blastic lesions are seen. The bony pelvis and proximal femora appear intact. LUMBAR SPINE: There is no evidence of fracture or malalignment. Vertebral body height and alignment are maintained throughout the lumbar spine. The transverse and spinous processes are intact. There is no evidence of spondylolysis. Moderate to advanced disc space narrowing is seen at L4-L5 and L5-S1. Posterior disc osteophyte complexes are seen at all lumbar levels between L2-L3 and L5-S1. This likely contributes to multilevel acquired compromise of the central canal. Facet arthropathy is noted in the lower lumbar region. A large hemangioma is seen in the body of L1. The paraspinous soft tissues are within normal limits. IMPRESSION: 1. There are acute appearing right anterolateral 5th and 6th rib fractures. 2. Dependent airspace consolidation is present at both lung bases. This could represent atelectasis versus pneumonia/aspiration pneumonitis. Clinical correlation will be required. 3. There is no pleural effusion or pneumothorax. 4. Cardiomegaly. 5. There is no evidence of solid organ injury in the abdomen or pelvis. 6. There is no evidence of fracture or malalignment involving the thoracic spine. 7. There is no evidence of fracture or malalignment involving the lumbar spine. 8. There is bilateral axillary lymphadenopathy. There are also mildly enlarged iliac chain and external iliac lymph nodes. The spleen is also mildly enlarged. These findings are similar to the 10/05/2018 examination; however, the axillary adenopathy is new from 07/22/2010. The appearance suggests a low-grade lymphoproliferative disorder such as CLL. Correlation with a medical/oncological history will be essential. 9. There are 2 subcentimeter pulmonary nodules in the right lung. These have modestly increased in size in the back to 2009 and are of low suspicion given the time course. 10. Additional findings as above. ACT 112: Negative or not required by law. Electronically signed by: Sanju Braga M.D. 02/01/2021 8:[address] 02/01/21 17:36 CT SCAN OF THE CHEST, ABDOMEN, AND PELVIS WITH IV CONTRAST; CT SCAN OF THE THORACIC SPINE WITHOUT IV CONTRAST; CT SCAN OF THE LUMBAR SPINE WITHOUT IV CONTRAST CLINICAL HISTORY: Trauma. Fall down stairs. COMPARISON STUDY: Chest CT, abdomen, and pelvis dated 07/22/2010. Abdominal CT dated 10/05/2018. TECHNIQUE: Following the IV administration of 87 of Optiray 300, CT scan of the chest, abdomen, and pelvis was performed from the thoracic inlet to the proximal femora. Images are reviewed in the axial, sagittal, and coronal planes. IV contrast was administered without complication. Additionally, unenhanced CT scan of the thoracic spine is performed from the lower cervical spine to the upper lumbar spine and unenhanced CT scan of lumbar spine is performed from the lower thoracic spine to the sacrum. The thoracic and lumbar spinal CT scans are reviewed in the axial, sagittal, and coronal planes. IV contrast was not administered specifically for the spinal CTs. A dose lowering technique was utilized adhering to the principles of ALARA. CT DOSE: 3055.31 mGy.cm FINDINGS: CHEST: Thyroid: Imaged portions of the thyroid gland are normal in size and attenuation. Thoracic aorta: There is mild atherosclerotic calcification of the thoracic aorta, which is normal in caliber and demonstrates bovine variant arch anatomy. No dissection is seen. Pulmonary vasculature: The pulmonary trunk is normal in caliber. There are no filling defects identified in the central pulmonary vessels to indicate pulmonary embolus. Note that this examination was not protocoled for evaluation of the pulmonary arteries. Heart: The heart is enlarged and without pericardial effusion. The coronary arteries are densely calcified. Lungs and pleural spaces: Evaluation of the lung parenchyma is degraded by motion artifact. The trachea and central airways are clear. Dependent consolidation is seen at both lung bases. No pleural effusion or pneumothorax is identified. There is a 9 mm pulmonary nodule in the right middle lobe seen on image #166. This has increased in size as compared to 2010. A 5 mm right upper lobe pulmonary nodule image #102 has also increased in size from 2010. A 1.3 cm curvilinear structure at the left lung base on image #176 has been present dating back to at least 2009 and may represent an impacted bronchus. Mediastinum: There are numerous subcentimeter mediastinal lymph nodes. No mediastinum hematoma is identified. Aleyda: Prominent hilar nodes measure up to 13 mm in short axis. Axillae: There are numerous mildly enlarged bilateral axillary lymph nodes. The largest is seen on the right and measures 2.2 x 1.7 cm. This is new from 07/22/2010. Bony thorax: The skeletal structures are osteopenic. See below for dedicated assessment of the thoracic spine. No lytic or blastic lesions are identified. Advanced arthritic change is seen in the shoulders. Postoperative change is note d in the right humeral head. There are acute appearing nondisplaced right anterolateral 5th and 6th rib fractures. THORACIC SPINE: There is no evidence of acute fracture or malalignment. There are mild chronic superior endplate compression deformities of T4, T5, T6, and T7. These been present dating back to 2009. Vertebral body height is otherwise maintained. Alignment is preserved. Mild hyperkyphosis is noted. Small anterior osteophytes are seen throughout. The transverse and spinous processes are intact. There is mild multilevel degenerative disc space narrowing. There is no evidence of large disc herniation or high-grade central canal stenosis by CT. The paraspinous soft tissues are normal in appearance. ABDOMEN AND PELVIS: Liver: The contrast-enhanced liver is normal in size, contour, and attenuation. There is mild intrahepatic biliary ductal dilatation. The hepatic veins and portal veins are patent. Gallbladder: Surgically absent noting clips in the gallbladder fossa. Spleen: The spleen is mildly enlarged measuring 13.8 cm in length. Pancreas: Moderately atrophic and grossly unremarkable. Adrenal glands: Unremarkable. Kidneys: The contrast enhanced kidneys demonstrate cortical atrophy and are without hydronephrosis. There is a 4.2 cm cyst in the interpolar left kidney. Additional subcentimeter cortical hypodensities also likely represent cysts but are too small for definitive characterization. Parapelvic cysts are noted on the left. The kidneys enhance symmetrically. Abdominal vasculature: The abdominal aorta is normal in course and caliber noting advanced atherosclerotic calcification. Stomach and bowel: There is a small hiatal hernia. There is advanced diverticulosis of the left colon without CT evidence of acute diverticulitis. No bowel obstruction is seen. The appendix is not identified. Peritoneum: There is no intraperitoneal free air or abdominal ascites. Lymphadenopathy: A mildly enlarged left iliac chain node on image #262 measures 1.4 x 1.3 cm. A right external iliac chain node on image #381 measures 3.3 x 1.4 cm. Pelvic viscera: The bladder is normal as visualized. The uterus is surgically absent. No adnexal lesion is seen. Skeletal structures: The skeletal structures are osteopenic. See below for dedicated assessment of the lumbar spine. No lytic or blastic lesions are seen. The bony pelvis and proximal femora appear intact. LUMBAR SPINE: There is no evidence of fracture or malalignment. Vertebral body height and alignment are maintained throughout the lumbar spine. The transverse and spinous processes are intact. There is no evidence of spondylolysis. Moderate to advanced disc space narrowing is seen at L4-L5 and L5-S1. Posterior disc osteophyte complexes are seen at all lumbar levels between L2-L3 and L5-S1. This likely contributes to multilevel acquired compromise of the central canal. Facet arthropathy is noted in the lower lumbar region. A large hemangioma is seen in the body of L1. The paraspinous soft tissues are within normal limits. IMPRESSION: 1. There are acute appearing right anterolateral 5th and 6th rib fractures. 2. Dependent airspace consolidation is present at both lung bases. This could represent atelectasis versus pneumonia/aspiration pneumonitis. Clinical correlation will be required. 3. There is no pleural effusion or pneumothorax. 4. Cardiomegaly. 5. There is no evidence of solid organ injury in the abdomen or pelvis. 6. There is no evidence of fracture or malalignment involving the thoracic spine. 7. There is no evidence of fracture or malalignment involving the lumbar spine. 8. There is bilateral axillary lymphadenopathy. There are also mildly enlarged iliac chain and external iliac lymph nodes. The spleen is also mildly enlarged. These findings are similar to the 10/05/2018 examination; however, the axillary adenopathy is new from 07/22/2010. The appearance suggests a low-grade lymphoproliferative disorder such as CLL. Correlation with a medical/oncological history will be essential. 9. There are 2 subcentimeter pulmonary nodules in the right lung. These have modestly increased in size in the back to 2009 and are of low suspicion given the time course. 10. Additional findings as above. ACT 112: Negative or not required by law. Electronically signed by: Sanju Braga M.D. 02/01/2021 8:19 PM Discharge Plan Visit Data Chief Complaint: Fall Stated Complaint: FALL DOWN STEPS, UPPER ABDOMINAL PAIN ED Provider: Rehan Ortiz Discharge Problem: Fracture, ribs, Fall Forms Stand Alone Forms: [place] Prescriptions Prescriptions: No Action diclofenac sodium [Voltaren] 1 % gel 4 gm TOPICAL QID PRN (Reason: Pain) Qty: 100 RF: 5 lorazepam 0.5 mg tablet 0.5 mg PO DAILY PRN (Reason: anxiety) Qty: 30 RF: 0 vitamin E 400 unit Capsule 400 unit PO DAILY RF: 0 Discharge Problem: Fracture, ribs Qualifiers: Encounter type: initial encounter Fracture type: closed Laterality: right Qualified Code(s): S22.41XA - Multiple fractures of ribs, right side, initial encounter for closed fracture Fall Qualifiers: Encounter type: initial encounter Qualified Code(s): W19.XXXA - Unspecified fall, initial encounter
[2021-02-01] MEDS ORDERED: MoRPHine SULFATE 4 MG/ML 1 ML CARP\\VIAL IV PRN (17:36)
[2021-02-01] MEDS ORDERED: ONDANSETRON INJ 2 MG/ML 2 ML VIAL IV STA (17:36)
[2021-02-01] MEDS ORDERED: diphenhydrAMINE 50 MG/ML VIAL IV STA (17:44)
[2021-02-01 18:46] LABS: Hematocrit (blood only) 39.7 % (37-47); Hemoglobin 13.6 g/dL (12.0-16.0); Mean Corpuscular Hemoglobin 32.4 pg (25-34); Mean Corpuscular Hgb Conc 34.3 g/dL (32-36); Mean Corpuscular Volume 94.5 fL (80-100); Mean Platelet Volume 11.3 fL (7.4-10.4); Platelet Count 136 K/uL (130-400); RDW Coefficient of Variation 14.4 % (11.5-14.5); RDW Standard Deviation 49.3 fL (36.4-46.3); White Blood Count 31.81 K/uL (4.8-10.8)
[2021-02-01 18:50] LABS: iSTAT Hemoglobin 13.6 g/dl (12.0-16.0); iSTAT Ionized Calcium 1.24 mmol/l (1.12-1.32); iSTAT Potassium 4.2 mmol/L (3.3-5.0)
[2021-02-01 19:07] LABS: Prothrombin Time 10.5 Seconds (9.0-12.0)
[2021-02-01 19:13] LABS: Albumin Level 4.2 gm/dl (3.4-5.0); BUN Creatinine Ratio 20.6 (10-20); Calcium 9.3 mg/dl (8.5-10.1); Creatinine Clr Calc Pharmacy 42.1 ml/min; Est GFR (African American) 57.7; Est GFR (Non-African American) 49.8; Potassium 4.2 mmol/L (3.5-5.1)
[2021-02-01 19:15] LABS: Albumin Globulin Ratio 1.5 (0.9-2); Bilirubin,Total 0.9 mg/dl (0.2-1); Globulin 2.8 gm/dl (2.5-4.0)
[2021-02-01 19:23] LABS: Basophils # (auto) 0.07 K/uL (0-0.2); Basophils % (auto) 0.2 %; Eosinophils # (auto) 0.01 K/uL (0-0.5); Immature Granulocytes # (auto) 0.11 K/uL (0.00-0.02); Immature Granulocytes % (auto) 0.3 %; Lymphocytes % (auto) 74.2 %; Monocytes # (auto) 1.06 K/uL (0.11-0.59); Monocytes % (auto) 3.3 %; Neutrophils # (auto) 6.96 K/uL (1.4-6.5); RBC Morphology Unremarkable
[2021-02-01] MEDS ORDERED: OPTIRAY 300 100mL IV ONE (19:27)
--- NOTE | 2021-02-01 19:44 | CT Scan Report ---
CT SCAN OF THE BRAIN WITHOUT IV CONTRAST CLINICAL HISTORY: Fall down stairs. COMPARISON STUDY: CT of the brain dated 12/24/2020. TECHNIQUE: Unenhanced axial CT scan of the brain is performed from the vertex to the skull base. A do se lowering technique was utilized adhering to the principles of ALARA. FINDINGS: Brain parenchyma: There are age-related involutional changes noting mild subcortical and periventric ular microangiopathic change. There is no hemorrhage, mass effect, or evidence of acute territorial i schemia by CT criteria. Tidwell-white matter differentiation is preserved. No extra-axial fluid collecti on is seen. Ventricles, sulci, cisterns: Prominent secondary to involutional change. Intracranial vasculature: There is atherosclerotic calcification of the cavernous carotid and vertebr al arteries. Calvarium: The skeletal structures are osteopenic. No depressed calvarial fracture is identified. Sinuses and mastoids: The visualized paranasal sinuses are clear. Small mastoid effusions are noted. Orbits: The bony orbits are grossly intact. There are bilateral ocular lens implants. IMPRESSION: There is no hemorrhage, mass effect, or evidence of acute territorial ischemia by CT crit anali. ACT 112: Negative or not required by law. Electronically signed by: Sanju Braga M.D. 02/01/2021 7:42 PM
--- NOTE | 2021-02-01 19:51 | CT Scan Report ---
CT SCAN OF THE CERVICAL SPINE CLINICAL HISTORY: Trauma. Fall down stairs. COMPARISON STUDY: CT of the cervical spine dated 10/04/2018. TECHNIQUE: CT scan of the cervical spine is performed from the skull base to the upper thoracic spine . Images are reviewed in the axial, sagittal, and coronal planes. IV contrast was not administered fo r this examination. A dose lowering technique was utilized adhering to the principles of ALARA. FINDINGS: Skeletal structures: The skeletal structures are osteopenic. There is no evidence of fracture or subl uxation involving the cervical spine. Vertebral body height is maintained. There is minimal anterolis thesis at C3-C4 and C7-T1. Alignment is otherwise preserved. There is straightening of the cervical l ordosis with reversal centered at C4-C5. Anterior osteophytes are seen throughout. The odontoid proce ss and lateral masses are intact. The atlantoaxial articulation is preserved noting productive degene rative change. The spinous processes appear intact. There is moderate multilevel cervical spondylosis . Uncovertebral and facet arthropathy contribute to neural foraminal narrowing at several levels. Intervertebral discs: Mild to moderate disc space narrowing is seen at all cervical levels. Central canal: Posterior disc osteophyte complexes are seen at all levels between C3-C4 and C6-C7. Th is likely contributes to multilevel acquired compromise of the central canal. Soft tissues: The prevertebral and paraspinous soft tissues are within normal limits. There are shott y cervical lymph nodes. These measure up to 11 mm in length and are similar in appearance to the 2018 examination. There is mild atherosclerotic calcification of the carotid bulbs. Calvarium: The visualized calvarium at the skull base appears intact. Brain parenchyma: Partially visualized brain parenchyma at the skull base is within normal limits. Sinuses and mastoids: The visualized paranasal sinuses are clear. There are small mastoid effusions. Lung apices: Clear as visualized. IMPRESSION: 1. There is no evidence of fracture or subluxation involving the cervical spine. 2. Osteopenia and spondylotic change as above. ACT 112: Negative or not required by law. Electronically signed by: Sanju Braga M.D. 02/01/2021 7:49 PM
--- NOTE | 2021-02-01 20:21 | CT Scan Report ---
CT SCAN OF THE CHEST, ABDOMEN, AND PELVIS WITH IV CONTRAST; CT SCAN OF THE THORACIC SPINE WITHOUT IV CONTRAST; CT SCAN OF THE LUMBAR SPINE WITHOUT IV CONTRAST CLINICAL HISTORY: Trauma. Fall down stairs. COMPARISON STUDY: Chest CT, abdomen, and pelvis dated 07/22/2010. Abdominal CT dated 10/05/2018. TECHNIQUE: Following the IV administration of 87 of Optir[employer] 300, CT scan of the chest, abdomen, and p cassandra was performed from the thoracic inlet to the proximal femora. Images are reviewed in the axial, sagittal, and coronal planes. IV contrast was administered without complication. Additionally, unen hanced CT scan of the thoracic spine is performed from the lower cervical spine to the upper lumbar s pine and unenhanced CT scan of lumbar spine is performed from the lower thoracic spine to the sacrum. The thoracic and lumbar spinal CT scans are reviewed in the axial, sagittal, and coronal planes. IV contrast was not administered specifically for the spinal CTs. A dose lowering technique was utilized adhering to the principles of ALARA. CT DOSE: 3055.31 mGy.cm FINDINGS: CHEST: Thyroid: Imaged portions of the thyroid gland are normal in size and attenuation. Thoracic aorta: There is mild atherosclerotic calcification of the thoracic aorta, which is normal in caliber and demonstrates bovine variant arch anatomy. No dissection is seen. Pulmonary vasculature: The pulmonary trunk is normal in caliber. There are no filling defects identif ied in the central pulmonary vessels to indicate pulmonary embolus. Note that this examination was no t protocoled for evaluation of the pulmonary arteries. Heart: The heart is enlarged and without pericardial effusion. The coronary arteries are densely calc ified. Lungs and pleural spaces: Evaluation of the lung parenchyma is degraded by motion artifact. The trach ea and central airways are clear. Dependent consolidation is seen at both lung bases. No pleural effu amina or pneumothorax is identified. There is a 9 mm pulmonary nodule in the right middle lobe seen on image #166. This has increased in size as compared to 2010. A 5 mm right upper lobe pulmonary nodule image #102 has also increased in size from 2010. A 1.3 cm curvilinear structure at the left lung bas e on image #176 has been present dating back to at least 2009 and may represent an impacted bronchus. Mediastinum: There are numerous subcentimeter mediastinal lymph nodes. No mediastinum hematoma is jaden ntified. Aleyda: Prominent hilar nodes measure up to 13 mm in short axis. Axillae: There are numerous mildly enlarged bilateral axillary lymph nodes. The largest is seen on th e right and measures 2.2 x 1.7 cm. This is new from 07/22/2010. Bony thorax: The skeletal structures are osteopenic. See below for dedicated assessment of the thorac ic spine. No lytic or blastic lesions are identified. Advanced arthritic change is seen in the should ers. Postoperative change is noted in the right humeral head. There are acute appearing nondisplaced right anterolateral 5th and 6th rib fractures. THORACIC SPINE: There is no evidence of acute fracture or malalignment. There are mild chronic superi or endplate compression deformities of T4, T5, T6, and T7. These been present dating back to 2009. Ve rtebral body height is otherwise maintained. Alignment is preserved. Mild hyperkyphosis is noted. Sma ll anterior osteophytes are seen throughout. The transverse and spinous processes are intact. There i s mild multilevel degenerative disc space narrowing. There is no evidence of large disc herniation or high-grade central canal stenosis by CT. The paraspinous soft tissues are normal in appearance. ABDOMEN AND PELVIS: Liver: The contrast-enhanced liver is normal in size, contour, and attenuation. There is mild intrahe patic biliary ductal dilatation. The hepatic veins and portal veins are patent. Gallbladder: Surgically absent noting clips in the gallbladder fossa. Spleen: The spleen is mildly enlarged measuring 13.8 cm in length. Pancreas: Moderately atrophic and grossly unremarkable. Adrenal glands: Unremarkable. Kidneys: The contrast enhanced kidneys demonstrate cortical atrophy and are without hydronephrosis. T here is a 4.2 cm cyst in the interpolar left kidney. Additional subcentimeter cortical hypodensities also likely represent cysts but are too small for definitive characterization. Parapelvic cysts are n oted on the left. The kidneys enhance symmetrically. Abdominal vasculature: The abdominal aorta is normal in course and caliber noting advanced atheroscle rotic calcification. Stomach and bowel: There is a small hiatal hernia. There is advanced diverticulosis of the left colon without CT evidence of acute diverticulitis. No bowel obstruction is seen. The appendix is not iden tified. Peritoneum: There is no intraperitoneal free air or abdominal ascites. Lymphadenopathy: A mildly enlarged left iliac chain node on image #262 measures 1.4 x 1.3 cm. A right external iliac chain node on image #381 measures 3.3 x 1.4 cm. Pelvic viscera: The bladder is normal as visualized. The uterus is surgically absent. No adnexal lesi on is seen. Skeletal structures: The skeletal structures are osteopenic. See below for dedicated assessment of th e lumbar spine. No lytic or blastic lesions are seen. The bony pelvis and proximal femora appear inta ct. LUMBAR SPINE: There is no evidence of fracture or malalignment. Vertebral body height and alignment a re maintained throughout the lumbar spine. The transverse and spinous processes are intact. There is no evidence of spondylolysis. Moderate to advanced disc space narrowing is seen at L4-L5 and L5-S1. P osterior disc osteophyte complexes are seen at all lumbar levels between L2-L3 and L5-S1. This likely contributes to multilevel acquired compromise of the central canal. Facet arthropathy is noted in th e lower lumbar region. A large hemangioma is seen in the body of L1. The paraspinous soft tissues are within normal limits. IMPRESSION: 1. There are acute appearing right anterolateral 5th and 6th rib fractures. 2. Dependent airspace consolidation is present at both lung bases. This could represent atelectasis v ersus pneumonia/aspiration pneumonitis. Clinical correlation will be required. 3. There is no pleural effusion or pneumothorax. 4. Cardiomegaly. 5. There is no evidence of solid organ injury in the abdomen or pelvis. 6. There is no evidence of fracture or malalignment involving the thoracic spine. 7. There is no evidence of fracture or malalignment involving the lumbar spine. 8. There is bilateral axillary lymphadenopathy. There are also mildly enlarged iliac chain and motion pictures cartoonist al iliac lymph nodes. The spleen is also mildly enlarged. These findings are similar to the 10/05/2018 examination; however, the axillary adenopathy is new from 07/22/2010. The appearance suggests a low-g rade lymphoproliferative disorder such as CLL. Correlation with a medical/oncological history will be essential. 9. There are 2 subcentimeter pulmonary nodules in the right lung. These have modestly increased in si ze in the back to 2009 and are of low suspicion given the time course. 10. Additional findings as above. ACT 112: Negative or not required by law. Electronically signed by: Sanju Braga M.D. 02/01/2021 8:19 PM
--- NOTE | 2021-02-01 22:29 | History & Physical Report ---
Date of Service February 01, 2021 Assessment & Plan (1) Fracture, ribs: 85yo C female s/p fall presenting with acute paulette-lateral fracture of right ribs 5 and 6. No PTX/Hemothorax or flail chest. No crepitus. Patient in considerable discomfort, splinting. 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 Peripheral smear on 12/25 showed no neutrophil predominance and no transition to more acute leukemia. -Continue to monitor Present on Admission?: Yes (3) Anxiety: Chronic. Has been on several agents in the past including sertraline, escitalopram, and mirtazapine. - Continue home Ativan dosing - Will minimize amount she gets as this medication is clearly on Beer's list and not ideal for a person her age. Present on Admission?: Yes (4) Hypertension: Blood pressure acceptable at 136/66. Patient currently not taking any medications for BP -Continue to monitor F/E/N - Encourage PO as tolerated, electrolytes WNL, Regular diet, bowel regimen in setting of opioids Ppx - SCDs Code - Full Dispo - Observation to medical Present on Admission?: Yes History of Present Illness Chief Complaint: fall, rib fractures Primary Care Provider: Aristides Bautista MD Sona Adams is an 85yo female with history of HTN, HLP, CLL presenting after a fall at home. Patient does not recall the situation that led to the fal l. Apparently she was on the stairs of her trailer when she lost her balance and fell striking her right chest against the steps. She fell down 4 steps and landed on the ground between the stairs and her trailer. She denies head trauma, syncope or loss of consciousness. She had immediate pain on her right chest wall worse with inspiration and movement. Patient is very hard of hearing and conducting the interview was somewhat difficult. She denies additional complaints at this time. No SOB, cough, abdominal pain, nausea, vomiting, diarrhea or constipation. ER Course: Benadryl, Morphine, Zofran Allergies Allergy/AdvReac Type Severity Reaction Status Date / Time latex Allergy Mild ` Verified 02/01/21 22:18 Iodinated Contrast Media Allergy Unknown PT Verified 02/01/21 22:18 BELIEVES SHE IS ALLERGIC TO CONTRAST MEDIA NSAIDS (Non-Steroidal Allergy Unknown PT TAKES Verified 02/01/21 22:18 Anti-Inflamma BUFFERED ASA AT HOME Penicillins Allergy Unknown Unknown Verified 02/01/21 22:18 Sulfa (Sulfonamide Allergy Unknown Unknown Verified 02/01/21 22:18 Antibiotics) HEATH Inhibitors Allergy Unknown Verified 02/01/21 22:18 erythromycin base Allergy Unknown Verified 02/01/21 22:18 escitalopram [From Lexapro] Allergy Unknown Verified 02/01/21 22:18 Latex, Natural Rubber Allergy Unknown Verified 02/01/21 22:18 methocarbamol [From Robaxin] Allergy Unknown Verified 02/01/21 22:18 oxybutynin Allergy Unknown Verified 02/01/21 22:18 Tfhscyx-Oak-Fhy Reductase Allergy Unknown Verified 02/01/21 22:18 Inhibitor tegaserod [From Zelnorm] Allergy Unknown Verified 02/01/21 22:18 milk AdvReac Unknown Verified 02/01/21 22:18 Home Medications Medication Instructions Recorded Confirmed Type vitamin E 400 unit PO DAILY 10/04/18 02/01/21 History diclofenac sodium 1 % topical gel 4 gm TOPICAL QID PRN #100 gm 12/16/19 02/01/21 Rx lorazepam 0.5 mg tablet 0.5 mg PO DAILY PRN #30 tab 12/16/19 02/01/21 Rx Past Med/Surg History Medical History Altered mental status Anxiety Depression Hyperlipidemia Hypertension Hypotension Impaired fasting glucose Neck pain Shortness of breath Syncopal episodes Surgical History H/O hysterectomy with oophorectomy History of appendectomy History of carpal tunnel surgery History of foot surgery Hx of cholecystectomy Family History Sister Arthritis Cancer Diabetes Coronary heart disease Hypertension Kidney disease Breast cancer Father Cerebral artery occlusion Heart disease Hypertension Myocardial infarction Daughter Cardiac disorder Hypertension Heart disease Son Cardiac disorder Hearing loss Other Family history non-contributory Denies family history of Ovarian cancer Prostate cancer Colorectal cancer Social History Smoking Status: Never smoker Second Hand Exposure: No; Hx Alcohol Use: No Hx Substance Use: No Preferred Language: Setswana Communication Ability: Effective Visual Impairment: No Limitations Hearing Ability: Use of Hearing Aid 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 Beliefs That Will Affect Care: None marital status: / Current Living Situation: Alone Current Living Situation Comment: she rents a trailer next to her family current occupational status: retired current occupation: worked making components of electronics Feels Safe at Home: Yes Childhood Exposure to Second-Hand Smoke: Yes Dental Care, Regularly: No Physical Activity Frequency: Does not Exercise Seatbelt Use: always Sunscreen Use: No Assistive Devices: Hearing Aid - Bilateral Review of Systems Review of Systems: All systems reviewed & are unremarkable except as noted in HPI & below Physical Exam Physical Exam: General: patient very heard of hearing, resting comfortably, discomfort elicited with deep inspiration, NAD, non-toxic in appearance Skin: warm, dry, intact, no rashes or lesions HEENT: NC/AT, PERRL, EOMI, anicteric sclera, conjunctiva without injection, external ear normal to inspection and nontender, nares patent, moist mucus membranes, dentition intact, no oropharyngeal lesions, neck supple, trachea midline, no LAD, no thyromegaly, no JVD Heart: +S1/S2, regular, 2/6 JOSE LUIS at LSB Lungs: equal air entry bilaterally, no rales/rhonchi/wheezes, diminished breath sounds in right base, no crepitus Abd: +BS, soft, NT/ND, no masses/organomegaly/ascites Ext: warm, 2+ pulses in UE/LE bilaterally, no clubbing/cyanosis or edema Neuro: nonfocal, speech intact, no facial droop, moving all extremities on command with equal strength 5/5 Results & Data Results & Data ([facility]) Vital Signs (Past 12 Hours) Vital Signs Temp Pulse Resp BP Pulse Ox 02/01/21 22:20 86 18 100 02/01/21 22:15 82 18 159/68 H 100 02/01/21 22:10 78 18 100 02/01/21 22:01 84 18 144/90 H 100 02/01/21 22:00 83 16 02/01/21 21:50 75 17 100 02/01/21 21:45 79 18 133/67 100 02/01/21 21:40 72 19 100 02/01/21 21:31 76 21 100 02/01/21 21:30 76 19 132/65 100 02/01/21 21:20 80 20 100 02/01/21 21:17 89 L 02/01/21 21:16 75 18 100 02/01/21 21:15 75 16 132/64 97 02/01/21 21:10 79 19 93 02/01/21 21:01 74 17 146/77 H 100 02/01/21 21:00 70 18 91 02/01/21 20:50 76 18 100 02/01/21 20:45 76 21 131/70 100 02/01/21 20:40 76 20 100 02/01/21 20:33 85 19 149/84 H 91 02/01/21 20:32 90 19 02/01/21 20:20 73 15 100 02/01/21 20:16 77 21 164/110 H 100 02/01/21 20:10 74 18 100 02/01/21 20:04 87 L 02/01/21 20:01 82 20 89 L 02/01/21 20:00 81 18 179/87 H 91 02/01/21 19:50 82 15 89 L 02/01/21 19:43 87 14 02/01/21 19:15 70 20 155/97 H 100 02/01/21 19:10 69 16 100 02/01/21 19:00 77 17 100 02/01/21 18:56 75 21 153/79 H 99 02/01/21 18:45 75 18 96 02/01/21 18:30 76 18 97 02/01/21 18:15 80 21 95 02/01/21 18:00 75 16 95 02/01/21 17:50 78 20 94 02/01/21 17:36 87 20 98 02/01/21 17:20 36.4 C L 95 H 18 163/95 H 95 Laboratory Results Lab Results 02/01/21 02/01/21 02/01/21 Range/Units 18:30 18:30 18:30 WBC 31.81 H* (4.8-10.8) K/uL RBC 4.20 (4.2-5.4) M/uL Hgb 13.6 (12.0-16.0) g/dL POC Hgb (12.0-16.0) g/dl Hct 39.7 (37-47) % POC Hct (37-47) % MCV 94.5 (80-100) fL MCH 32.4 (25-34) pg MCHC 34.3 (32-36) g/dL RDW Std Deviation 49.3 H (36.4-46.3) fL RDW Coeff of Billy 14.4 (11.5-14.5) % Plt Count 136 (130-400) K/uL MPV 11.3 H (7.4-10.4) fL Immature Gran % (Auto) 0.3 % Neut % (Auto) 22.0 % Lymph % (Auto) 74.2 % Dane % (Auto) 3.3 % Eos % (Auto) 0.0 % Baso % (Auto) 0.2 % Neut # (Auto) 6.96 H (1.4-6.5) K/uL Lymph # (Auto) 23.60 H (1.2-3.4) K/uL Dane # (Auto) 1.06 H (0.11-0.59) K/uL Eos # (Auto) 0.01 (0-0.5) K/uL Baso # (Auto) 0.07 (0-0.2) K/uL Immature Gran # (Auto) 0.11 H (0.00-0.02) K/uL RBC Morphology Unremarkable PT 10.5 (9.0-12.0) Seconds INR 1.0 (0.9-1.1) POC Sodium (135-144) mmol/L Sodium 140 (136-145) mmol/L POC Potassium (3.3-5.0) mmol/L Potassium 4.2 (3.5-5.1) mmol/L POC Chloride (101-112) mmol/L Chloride 108 H (98-107) mmol/L Carbon Dioxide 27 (21-32) mmol/L POC Total CO2 (24-31) mmol/L Anion Gap 5.0 (3-11) POC Anion Gap (16-25) mmol/L POC BUN (7-18) mg/dl BUN 21 H (7-18) mg/dl Creatinine 1.02 (0.6-1.2) mg/dl POC Creatinine (0.6-1.3) mg/dl Est Cr Clr Drug Dosing 42.1 ml/min Est GFR ( Amer) 57.7 Est GFR (Non-Af Amer) 49.8 BUN/Creatinine Ratio 20.6 H (10-20) Glucose 106 H (70-99) mg/dl POC Glucose (other) (70-99) mg/dl Calcium 9.3 (8.5-10.1) mg/dl POC Ioniz Calcium Daysi (1.12-1.32) mmol/l Total Bilirubin 0.9 (0.2-1) mg/dl AST 50 H (15-37) U/L ALT 54 (12-78) U/L Alkaline Phosphatase 43 L (45-117) U/L Total Protein 7.0 (6.4-8.2) gm/dl Albumin 4.2 (3.4-5.0) gm/dl Globulin 2.8 (2.5-4.0) gm/dl Albumin/Globulin Ratio 1.5 (0.9-2) COVID-19 Eval Order SARS-CoV-2 (PCR) (Negative) Influenza Type A (PCR) (Neg) Influenza Type B (PCR) (Neg) RSV (RT-PCR) (Neg) 02/01/21 02/01/21 02/01/21 Range/Units 18:37 22:00 22:00 WBC (4.8-10.8) K/uL RBC (4.2-5.4) M/uL Hgb (12.0-16.0) g/dL POC Hgb 13.6 (12.0-16.0) g/dl Hct (37-47) % POC Hct 40 (37-47) % MCV (80-100) fL MCH (25-34) pg MCHC (32-36) g/dL RDW Std Deviation (36.4-46.3) fL RDW Coeff of Billy (11.5-14.5) % Plt Count (130-400) K/uL MPV (7.4-10.4) fL Immature Gran % (Auto) % Neut % (Auto) % Lymph % (Auto) % Dane % (Auto) % Eos % (Auto) % Baso % (Auto) % Neut # (Auto) (1.4-6.5) K/uL Lymph # (Auto) (1.2-3.4) K/uL Dane # (Auto) (0.11-0.59) K/uL Eos # (Auto) (0-0.5) K/uL Baso # (Auto) (0-0.2) K/uL Immature Gran # (Auto) (0.00-0.02) K/uL RBC Morphology PT (9.0-12.0) Seconds INR (0.9-1.1) POC Sodium 140 (135-144) mmol/L Sodium (136-145) mmol/L POC Potassium 4.2 (3.3-5.0) mmol/L Potassium (3.5-5.1) mmol/L POC Chloride 104 (101-112) mmol/L Chloride (98-107) mmol/L Carbon Dioxide (21-32) mmol/L POC Total CO2 26 (24-31) mmol/L Anion Gap (3-11) POC Anion Gap 15.0 L (16-25) mmol/L POC BUN 21 H (7-18) mg/dl BUN (7-18) mg/dl Creatinine (0.6-1.2) mg/dl POC Creatinine 1.0 (0.6-1.3) mg/dl Est Cr Clr Drug Dosing ml/min Est GFR ( Amer) Est GFR (Non-Af Amer) BUN/Creatinine Ratio (10-20) Glucose (70-99) mg/dl POC Glucose (other) 109 H (70-99) mg/dl Calcium (8.5-10.1) mg/dl POC Ioniz Calcium Daysi 1.24 (1.12-1.32) mmol/l Total Bilirubin (0.2-1) mg/dl AST (15-37) U/L ALT (12-78) U/L Alkaline Phosphatase (45-117) U/L Total Protein (6.4-8.2) gm/dl Albumin (3.4-5.0) gm/dl Globulin (2.5-4.0) gm/dl Albumin/Globulin Ratio (0.9-2) COVID-19 Eval Order [facility]FluRsv at [facility] SARS-CoV-2 (PCR) NEGATIVE (Negative) Influenza Type A (PCR) Negative (Neg) Influenza Type B (PCR) Negative (Neg) RSV (RT-PCR) Negative (Neg) Diagnostic Findings CT SCAN OF THE CHEST, ABDOMEN, AND PELVIS WITH IV CONTRAST; CT SCAN OF THE THORACIC SPINE WITHOUT IV CONTRAST; CT SCAN OF THE LUMBAR SPINE WITHOUT IV CONTRAST CLINICAL HISTORY: Trauma. Fall down stairs. COMPARISON STUDY: Chest CT, abdomen, and pelvis dated 07/22/2010. Abdominal CT dated 10/05/2018. TECHNIQUE: Following the IV administration of 87 of Optiray 300, CT scan of the chest, abdomen, and pelvis was performed from the thoracic inlet to the proximal femora. Images are reviewed in the axial, sagittal, and coronal planes. IV contrast was administered without complication. Additionally, unenhanced CT scan of the thoracic spine is performed from the lower cervical spine to the upper lumbar spine and unenhanced CT scan of lumbar spine is performed from the lower thoracic spine to the sacrum. The thoracic and lumbar spinal CT scans are reviewed in the axial, sagittal, and coronal planes. IV contrast was not administered specifically for the spinal CTs. A dose lowering technique was utilized adhering to the principles of ALARA. CT DOSE: 3055.31 mGy.cm FINDINGS: CHEST: Thyroid: Imaged portions of the thyroid gland are normal in size and attenuation. Thoracic aorta: There is mild atherosclerotic calcification of the thoracic aorta, which is normal in caliber and demonstrates bovine variant arch anatomy. No dissection is seen. Pulmonary vasculature: The pulmonary trunk is normal in caliber. There are no filling defects identified in the central pulmonary vessels to indicate pulmonary embolus. Note that this examination was not protocoled for evaluation of the pulmonary arteries. Heart: The heart is enlarged and without pericardial effusion. The coronary arteries are densely calcified. Lungs and pleural spaces: Evaluation of the lung parenchyma is degraded by mot ion artifact. The trachea and central airways are clear. Dependent consolidation is seen at both lung bases. No pleural effusion or pneumothorax is identified. There is a 9 mm pulmonary nodule in the right middle lobe seen on image #166. This has increased in size as compared to 2010. A 5 mm right upper lobe pulmonary nodule image #102 has also increased in size from 2010. A 1.3 cm curvilinear structure at the left lung base on image #176 has been present dating back to at least 2009 and may represent an impacted bronchus. Mediastinum: There are numerous subcentimeter mediastinal lymph nodes. No mediastinum hematoma is identified. Aleyda: Prominent hilar nodes measure up to 13 mm in short axis. Axillae: There are numerous mildly enlarged bilateral axillary lymph nodes. The largest is seen on the right and measures 2.2 x 1.7 cm. This is new from 07/22/2010. Bony thorax: The skeletal structures are osteopenic. See below for dedicated assessment of the thoracic spine. No lytic or blastic lesions are identified. Advanced arthritic change is seen in the shoulders. Postoperative change is noted in the right humeral head. There are acute appearing nondisplaced right anterolateral 5th and 6th rib fractures. THORACIC SPINE: There is no evidence of acute fracture or malalignment. There are mild chronic superior endplate compression deformities of T4, T5, T6, and T7. These been present dating back to 2009. Vertebral body height is otherwise maintained. Alignment is preserved. Mild hyperkyphosis is noted. Small anterior osteophytes are seen throughout. The transverse and spinous processes are intact. There is mild multilevel degenerative disc space narrowing. There is no evidence of large disc herniation or high-grade central canal stenosis by CT. The paraspinous soft tissues are normal in appearance. ABDOMEN AND PELVIS: Liver: The contrast-enhanced liver is normal in size, contour, and attenuation. There is mild intrahepatic biliary ductal dilatation. The hepatic veins and portal veins are patent. Gallbladder: Surgically absent noting clips in the gallbladder fossa. Spleen: The spleen is mildly enlarged measuring 13.8 cm in length. Pancreas: Moderately atrophic and grossly unremarkable. Adrenal glands: Unremarkable. Kidneys: The contrast enhanced kidneys demonstrate cortical atrophy and are without hydronephrosis. There is a 4.2 cm cyst in the interpolar left kidney. Additional subcentimeter cortical hypodensities also likely represent cysts but are too small for definitive characterization. Parapelvic cysts are noted on the left. The kidneys enhance symmetrically. Abdominal vasculature: The abdominal aorta is normal in course and caliber noting advanced atherosclerotic calcification. Stomach and bowel: There is a small hiatal hernia. There is advanced diverticulosis of the left colon without CT evidence of acute diverticulitis. No bowel obstruction is seen. The appendix is not identified. Peritoneum: There is no intraperitoneal free air or abdominal ascites. Lymphadenopathy: A mildly enlarged left iliac chain node on image #262 measures 1.4 x 1.3 cm. A right external iliac chain node on image #381 measures 3.3 x 1.4 cm. Pelvic viscera: The bladder is normal as visualized. The uterus is surgically absent. No adnexal lesion is seen. Skeletal structures: The skeletal structures are osteopenic. See below for dedicated assessment of the lumbar spine. No lytic or blastic lesions are seen. The bony pelvis and proximal femora appear intact. LUMBAR SPINE: There is no evidence of fracture or malalignment. Vertebral body height and alignment are maintained throughout the lumbar spine. The transverse and spinous processes are intact. There is no evidence of spondylolysis. Moderate to advanced disc space narrowing is seen at L4-L5 and L5-S1. Posterior disc osteophyte complexes are seen at all lumbar levels between L2-L3 and L5-S1. This likely contributes to multilevel acquired compromise of the central canal. Facet arthropathy is noted in the lower lumbar region. A large hemangioma is seen in the body of L1. The paraspinous soft tissues are within normal limits. IMPRESSION: 1. There are acute appearing right anterolateral 5th and 6th rib fractures. 2. Dependent airspace consolidation is present at both lung bases. This could represent atelectasis versus pneumonia/aspiration pneumonitis. Clinical correlation will be required. 3. There is no pleural effusion or pneumothorax. 4. Cardiomegaly. 5. There is no evidence of solid organ injury in the abdomen or pelvis. 6. There is no evidence of fracture or malalignment involving the thoracic spine. 7. There is no evidence of fracture or malalignment involving the lumbar spine. 8. There is bilateral axillary lymphadenopathy. There are also mildly enlarged iliac chain and external iliac lymph nodes. The spleen is also mildly enlarged. These findings are similar to the 10/05/2018 examination; however, the axillary adenopathy is new from 07/22/2010. The appearance suggests a low-grade lymphoproliferative disorder such as CLL. Correlation with a medical/oncological history will be essential. 9. There are 2 subcentimeter pulmonary nodules in the right lung. These have modestly increased in size in the back to 2009 and are of low suspicion given the time course. 10. Additional findings as above. ACT 112: Negative or not required by law. Electronically signed by: Sanju Braga M.D. 02/01/2021 8:19 PM Dictated: 02/01/211950Transcribed: 02/01/21 2017 = CT SCAN OF THE CERVICAL SPINE CLINICAL HISTORY: Trauma. Fall down stairs. COMPARISON STUDY: CT of the cervical spine dated 10/04/2018. TECHNIQUE: CT scan of the cervical spine is performed from the skull base to the upper thoracic spine. Images are reviewed in the axial, sagittal, and coronal planes. IV contrast was not administered for this examination. A dose lowering technique was utilized adhering to the principles of ALARA. FINDINGS: Skeletal structures: The skeletal structures are osteopenic. There is no evidence of fracture or subluxation involving the cervical spine. Vertebral body height is maintained. There is minimal anterolisthesis at C3-C4 and C7-T1. Alignment is otherwise preserved. There is straightening of the cervical lordosis with reversal centered at C4-C5. Anterior osteophytes are seen throughout. The odontoid process and lateral masses are intact. The atlantoaxial articulation is preserved noting productive degenerative change. The spinous processes appear intact. There is moderate multilevel cervical spondylosis. Uncovertebral and facet arthropathy contribute to neural foraminal narrowing at several levels. Intervertebral discs: Mild to moderate disc space narrowing is seen at all cervical levels. Central canal: Posterior disc osteophyte complexes are seen at all levels between C3-C4 and C6-C7. This likely contributes to multilevel acquired compromise of the central canal. Soft tissues: The prevertebral and paraspinous soft tissues are within normal limits. There are shotty cervical lymph nodes. These measure up to 11 mm in length and are similar in appearance to the 10/04/2018 examination. There is mild atherosclerotic calcification of the carotid bulbs. Calvarium: The visualized calvarium at the skull base appears intact. Brain parenchyma: Partially visualized brain parenchyma at the skull base is within normal limits. Sinuses and mastoids: The visualized paranasal sinuses are clear. There are small mastoid effusions. Lung apices: Clear as visualized. IMPRESSION: 1. There is no evidence of fracture or subluxation involving the cervical spine. 2. Osteopenia and spondylotic change as above. ACT 112: Negative or not required by law. Electronically signed by: Sanju Braga M.D. 02/01/2021 7:49 PM Dictated: 02/01/211943Transcribed: 02/01/211943 CT SCAN OF THE BRAIN WITHOUT IV CONTRAST CLINICAL HISTORY: Fall down stairs. COMPARISON STUDY: CT of the brain dated 12/24/2020. TECHNIQUE: Unenhanced axial CT scan of the brain is performed from the vertex to the skull base. A dose lowering technique was utilized adhering to the principles of ALARA. FINDINGS: Brain parenchyma: There are age-related involutional changes noting mild subcortical and periventricular microangiopathic change. There is no hemorrhage, mass effect, or evidence of acute territorial ischemia by CT criteria. Tidwell- white matter differentiation is preserved. No extra-axial fluid collection is seen. Ventricles, sulci, cisterns: Prominent secondary to involutional change. Intracranial vasculature: There is atherosclerotic calcification of the cavernous carotid and vertebral arteries. Calvarium: The skeletal structures are osteopenic. No depressed calvarial fracture is identified. Sinuses and mastoids: The visualized paranasal sinuses are clear. Small mastoid effusions are noted. Orbits: The bony orbits are grossly intact. There are bilateral ocular lens implants. IMPRESSION: There is no hemorrhage, mass effect, or evidence of acute territorial ischemia by CT criteria. ACT 112: Negative or not required by law. Electronically signed by: Sanju Braga M.D. 02/01/2021 7:42 PM Dictated: 02/01/211938Transcribed: 02/01/211938 ECG Additional Comments: EKG with NSR at 81, normal axix, OL=046, QRS=86, QTc=45, no acute ischemic changes Code Status & VTE Plan VTE Prophylaxis Plan VTE Prophylaxis will be ordered: Yes PG Care Time/CCT Total # of Minutes Spent Total Time Spent with Patient: Total time spent is greater than 50% in coordination of care (as documented) at patient's floor/unit and/or counseling patient: Coding Level of Care Code 83570 OBS Care - Level 3 Diagnoses Fracture, ribs S22.41XA Encounter type: initial encounter Fracture type: closed Laterality: right 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
[2021-02-01] MEDS ORDERED: MoRPHine SULFATE 2 MG/ML CARP IV STA (22:41)
[2021-02-01 23:10] LABS: Influenza A virus by PCR Negative (Neg); Influenza B virus by PCR Negative (Neg); RSV by PCR Negative (Neg); SARS CoV2 RNA(COVID-19) InHosp NEGATIVE (Negative)
[2021-02-02] MEDS ORDERED: POLYETHYLENE (MIRALAX) 17 GM PACK PO PRN (00:34)
[2021-02-02] MEDS ORDERED: DICLOFENAC SOD 1% GEL 100 GM TUBE EXT PRN (00:34)
[2021-02-02] MEDS ORDERED: ACETAMINOPHEN 325 MG TAB PO PRN (00:34)
[2021-02-02] MEDS ORDERED: DOCUSATE SODIUM 100 MG CAP PO PRN (00:34)
[2021-02-02] MEDS: MoRPHine SULFATE 2 MG/ML CARP IV PRN ×3 (00:56→10:36)
[2021-02-02 07:20] LABS: BUN Creatinine Ratio 17.8 (10-20); Calcium 8.8 mg/dl (8.5-10.1); Creatinine Clr Calc Pharmacy 47.2 ml/min; Est GFR (African American) 67.1; Est GFR (Non-African American) 57.9; Potassium 4.2 mmol/L (3.5-5.1)
[2021-02-02 07:34] LABS: Hematocrit (blood only) 38.5 % (37-47); Hemoglobin 12.6 g/dL (12.0-16.0); Mean Corpuscular Hemoglobin 31.4 pg (25-34); Mean Corpuscular Hgb Conc 32.7 g/dL (32-36); Platelet Count 128 K/uL (130-400); RDW Coefficient of Variation 14.6 % (11.5-14.5); RDW Standard Deviation 51.6 fL (36.4-46.3); Red Blood Count 4.01 M/uL (4.2-5.4); White Blood Count 38.77 K/uL (4.8-10.8)
[2021-02-02 08:10] LABS: Basophils # (auto) 0.08 K/uL (0-0.2); Basophils % (auto) 0.2 %; Eosinophils # (auto) 0.07 K/uL (0-0.5); Eosinophils % (auto) 0.2 %; Immature Granulocytes # (auto) 0.14 K/uL (0.00-0.02); Immature Granulocytes % (auto) 0.4 %; Lymphocytes # (auto) 31.08 K/uL (1.2-3.4); Lymphocytes % (auto) 80.2 %; Monocytes # (auto) 1.15 K/uL (0.11-0.59); Neutrophils # (auto) 6.25 K/uL (1.4-6.5); Smudge Cells Present
--- NOTE | 2021-02-02 08:52 | Electrocardiogram Report ---
Test Reason : Blood Pressure : / mmHG Vent. Rate : 081 BPM Atrial Rate : 081 BPM P-R Int : 170 ms QRS Dur : 086 ms QT Int : 392 ms P-R-T Axes : 051 035 045 degrees QTc Int : 455 ms Normal sinus rhythm Normal ECG When compared with ECG of 24-DEC-2020 18:41, No significant change was found Confirmed by Shayne Rubio ([id number]) on 02/02/2021 8:52:17 AM Referred By: REFERRED SELF Confirmed By:Shayne Rubio
[2021-02-02] MEDS: LIDOCAINE 5% 1 PATCH TD SCH (11:40)
[2021-02-02] MEDS: ACETAMINOPHEN 500 MG TAB PO SCH ×2 (11:40→16:02)
[2021-02-02] MEDS ORDERED: traMADol HCL 50 MG TABLET PO STA (15:04)
[2021-02-02] MEDS: LORazepam 0.5 MG TAB PO PRN (20:12)
--- NOTE | 2021-02-02 20:19 | Hospitalist Progress Note ---
Date of Service February 02, 2021 Assessment & Plan (1) Fall: accidental fall leading to right sided rib fractures patient lives alone PT eval to ensure safe for d/c to home (2) Fracture, ribs: Right ribs 5 and 6. No PTX/Hemothorax or flail chest. Pain relatively controlled. Cont lidoderm patches, scheduled tylenol, and tramadol 25mg prn. Check 25-OH vit D level am. 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 repeat cbc am for stability. (4) Anxiety: Chronic. Has been on several agents in the past including sertraline, escitalopram, and mirtazapine. Continue home Ativan prn (5) Hypertension: Despite dx of such she is not on meds for HTN, and BPs are controlled. Follow. (6) Hearing loss: severe b/l (7) Nocturnal leg cramps: check Fe studies, b12, vitamin D in am tramadol prn consider dedicated night-time use of mirapex or gabapentin spoke with daughter by phone care plan discussed observe overnight Admission and Anticipated Discharge Date Admission Date: February 01, 2021 Subjective patient with severe hearing impairment - could not hear despite me shouting into either ear. thus, I used a pad of paper to write down questions. she reported her rib pain was controlled. denied dyspnea. ate fair during the day. denied any abdominal pain. earlier in the day she had c/o leg cramps behind the left knee. she has this fairly commonly at home including the night-time. spoke with daughter by phone - she inquired if any chance she has DVTs of legs that could be causing the cramps. patient lives alone, but several children live close by. Review of Systems Constitutional: no fever and no chills Respiratory: no cough and no dyspnea Cardiovascular: as per Subjective / HPI; no edema Gastrointestinal: as per Subjective / HPI Physical Exam Constitutional: well developed and well nourished; no acute distress and no altered mental status ENMT: external ear and nose normal, oropharynx normal Ears: + hearing impairment Respiratory: normal respiratory effort, lungs clear to auscultation Cardiovascular: Rate/Rhythm: regular rate and regular rhythm Heart Sounds: normal S1 and normal S2; no murmur Vessels: posterior tibial pulses present, dorsalis pedis pulses present and popliteal pulses present; no JVD Extremities: no edema Gastrointestinal (Abdomen): normal bowel sounds, soft, nontender, no hepatosplenomegaly Psychiatric: A+Ox3, euthymic affect Results & Data Results & Data ([facility]) Vital Signs (Past 12 Hours) Vital Signs Temp Pulse Resp BP Pulse Ox 02/02/21 14:58 36.5 C 75 16 111/61 90 Laboratory Results Laboratory Results - last 24 hr 02/01/21 02/01/21 02/02/21 22:00 22:00 06:31 WBC 38.77 H* RBC 4.01 L Hgb 12.6 Hct 38.5 MCV 96.0 MCH 31.4 MCHC 32.7 RDW Std Deviation 51.6 H RDW Coeff of Billy 14.6 H Plt Count 128 L MPV 11.0 H Immature Gran % (Auto) 0.4 Neut % (Auto) 16.0 Lymph % (Auto) 80.2 [place] % (Auto) 3.0 Eos % (Auto) 0.2 Baso % (Auto) 0.2 Neut # (Auto) 6.25 Lymph # (Auto) 31.08 H [place] # (Auto) 1.15 H Eos # (Auto) 0.07 Baso # (Auto) 0.08 Immature Gran # (Auto) 0.14 H Smudge Cells Present Sodium Potassium Chloride Carbon Dioxide Anion Gap BUN Creatinine Est Cr Clr Drug Dosing Est GFR ( Amer) Est GFR (Non-Af Amer) BUN/Creatinine Ratio Glucose Calcium Total Creatine Kinase COVID-19 Eval Order CovFluRsv at [facility] SARS-CoV-2 (PCR) NEGATIVE Influenza Type A (PCR) Negative Influenza Type B (PCR) Negative RSV (RT-PCR) Negative 02/02/21 02/02/21 06:31 06:31 WBC RBC Hgb Hct MCV MCH MCHC RDW Std Deviation RDW Coeff of Billy Plt Count MPV Immature Gran % (Auto) Neut % (Auto) Lymph % (Auto) [place] % (Auto) Eos % (Auto) Baso % (Auto) Neut # (Auto) Lymph # (Auto) [place] # (Auto) Eos # (Auto) Baso # (Auto) Immature Gran # (Auto) Smudge Cells Sodium 138 Potassium 4.2 Chloride 105 Carbon Dioxide 27 Anion Gap 6.0 BUN 16 Creatinine 0.90 Est Cr Clr Drug Dosing 47.2 Est GFR ( Amer) 67.1 Est GFR (Non-Af Amer) 57.9 BUN/Creatinine Ratio 17.8 Glucose 85 Calcium 8.8 Total Creatine Kinase 195 H COVID-19 Eval Order SARS-CoV-2 (PCR) Influenza Type A (PCR) Influenza Type B (PCR) RSV (RT-PCR) PG Care Time/CCT Total # of Minutes Spent Total Time Spent with Patient: Total time spent is greater than 50% in coordination of care (as documented) at patient's floor/unit and/or counseling patient: Coding Level of Care Code 56782 Subseq Obs Care Lvl 2 Diagnoses Fall W19.XXXA Encounter type: initial encounter Fracture, ribs S22.41XD Encounter type: subsequent encounter Fracture type: closed Laterality: right Fracture healing: with routine healing 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 D72.820; C91.10 Anxiety F41.9 Hypertension I10 Hypertension type: unspecified Hearing loss H91.90 Nocturnal leg cramps G47.62 (1) Fracture, ribs Encounter type: subsequent encounter Fracture type: closed Laterality: right Fracture healing: with routine healing Qualified Code(s): S22.41XD - Multiple fractures of ribs, right side, subsequent encounter for fracture with routine healing (2) Hypertension Hypertension type: unspecified Qualified Code(s): I10 - Essential (primary) hypertension (3) Fall Encounter type: initial encounter Qualified Code(s): W19.XXXA - Unspecified fall, initial encounter
[2021-02-03] MEDS: ACETAMINOPHEN 500 MG TAB PO SCH ×4 (00:23→19:56)
[2021-02-03 06:21] LABS: Hemoglobin 13.2 g/dL (12.0-16.0); Mean Corpuscular Volume 96.9 fL (80-100); Mean Platelet Volume 11.7 fL (7.4-10.4); Platelet Count 137 K/uL (130-400); RDW Coefficient of Variation 14.6 % (11.5-14.5); RDW Standard Deviation 51.7 fL (36.4-46.3); Red Blood Count 4.13 M/uL (4.2-5.4); White Blood Count 39.91 K/uL (4.8-10.8)
[2021-02-03 06:33] LABS: Calcium 8.9 mg/dl (8.5-10.1); Creatinine Clr Calc Pharmacy 40.1 ml/min; Est GFR (African American) 55.1; Est GFR (Non-African American) 47.5
[2021-02-03 06:38] LABS: Ferritin 67.5 ng/ml (8-388)
[2021-02-03 06:55] LABS: Basophils % (auto) 0.3 %; Eosinophils # (auto) 0.05 K/uL (0-0.5); Eosinophils % (auto) 0.1 %; Immature Granulocytes % (auto) 0.3 %; Lymphocytes # (auto) 33.76 K/uL (1.2-3.4); Lymphocytes % (auto) 84.6 %; Monocytes # (auto) 1.05 K/uL (0.11-0.59); Monocytes % (auto) 2.6 %; Neutrophils # (auto) 4.85 K/uL (1.4-6.5); Neutrophils % (auto) 12.1 %; RBC Morphology Unremarkable; Smudge Cells Present
--- NOTE | 2021-02-03 07:50 | Ultrasound Report ---
BILATERAL LOWER EXTREMITY VENOUS DOPPLER CLINICAL HISTORY: leg cramps, leukemia; eval DVT COMPARISON STUDY: No previous studies for comparison. TECHNIQUE: Sonography of the deep venous system of the bilateral lower extremities was performed. Co mpression and augmentation were evaluated. FINDINGS: The bilateral common femoral, superficial femoral and popliteal veins were compressible. A ugmentation was normal. Flow was shown within the deep calf vessels. IMPRESSION: No evidence of deep venous thrombus within the bilateral lower extremities. ACT 112: Negative or not required by law. Electronically signed by: Kit Mosqueda M.D. 02/03/2021 7:49 AM
[2021-02-03] MEDS: LIDOCAINE 5% 1 PATCH TD SCH (10:11)
[2021-02-03] MEDS: traMADol HCL 50 MG TABLET PO PRN ×2 (10:56→20:39)
[2021-02-03] MEDS: CHOLECALCIFEROL 1,000 UNITS 25 MCG TAB PO SCH (13:11)
--- NOTE | 2021-02-03 14:43 | XRay Report ---
XR chest 2V PA/lateral CLINICAL HISTORY: R rib Fx's; hypoxia; eval for developing effusion COMPARISON STUDY: 12/24/2020 FINDINGS: The heart is borderline enlarged. There is aortic tortuosity/ectasia. There is chronic inte rstitial thickening. There is no lobar consolidation. No pneumothorax is visualized. There are no sig nificant pleural effusions. There are mild thoracic compression deformities likely old. Postsurgical changes involve the right shoulder.[ IMPRESSION: 1. Persistent chronic interstitial thickening 2. No acute parenchymal consolidation 3. No significant pleural effusions. ACT 112: Negative or not required by law. Electronically signed by: Joseph Juarez M.D. 02/03/2021 2:42 PM
[2021-02-03] MEDS ORDERED: busPIRone 5 MG TAB PO ONE (15:59)
[2021-02-03] MEDS: LORazepam 0.5 MG TAB PO PRN (19:29)
--- NOTE | 2021-02-04 04:51 | Hospitalist Progress Note ---
Date of Service February 03, 2021 Assessment & Plan (1) Fall: accidental fall leading to right sided rib fractures patient lives alone PT eval completed; needs 24/7 care son apparently will be staying with her at discharge so that SNF can be avoided (2) Fracture, ribs: Right ribs 5 and 6. No PTX/Hemothorax or flail chest. Pain controlled. Cont lidoderm patches, scheduled tylenol, and tramadol 25mg prn. Replace low vit D level. 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 Has been on several agents in the past including sertraline, escitalopram, and mirtazapine. Continue home Ativan prn buspar x 1 given today with good results (5) Hypertension: Despite dx of such she is not on meds for HTN, and BPs are controlled. Follow. (6) Hearing loss: severe b/l hearing aids now in place (7) Nocturnal leg cramps: fe studies wnl b12 wnl replace low vitamin D tramadol prn consider dedicated night-time use of mirapex or gabapentin (8) Vitamin D insufficiency: vitamin D 5000 units daily (9) Encephalopathy acute: hospital delirium supportive care (10) Discharge planning issues: spoke with case management - son apparently will be staying with patient post-d/c so that she can have 24/7 supervision obtain OT eval in addition to PT eval change observation status to full admission due to encephalopathy, d/c planning issues, etc Admission and Anticipated Discharge Date Admission Date: February 03, 2021 Subjective patient w/o complaints during rounds very impulsive - getting up from the chair constantly nursing staff report she has been doing this recurrently throughout the day she said multiple times to me "I just don't know what's going on" her hearing is better today - hearing aids were delivered by [employer] [facility] Review of Systems Respiratory: no cough, no dyspnea and no dyspnea on exertion Cardiovascular: no chest pain Gastrointestinal: no abdominal pain and no nausea Physical Exam Constitutional: well developed, well nourished and + altered mental status; no acute distress ENMT: external ear and nose normal, oropharynx normal Respiratory: normal respiratory effort, lungs clear to auscultation Cardiovascular: Rate/Rhythm: regular rate and regular rhythm Heart Sounds: normal S1 and normal S2; no murmur Vessels: posterior tibial pulses present, dorsalis pedis pulses present and popliteal pulses present; no JVD Extremities: no edema Chest (Breasts): Additional Comments: no chest wall tenderness to palpation over right chest Gastrointestinal (Abdomen): normal bowel sounds, soft, nontender, no hepatosplenomegaly Psychiatric: Orientation: alert, oriented to person and oriented to place; + not oriented to time Results & Data Results & Data ([facility]) Vital Signs (Past 12 Hours) Vital Signs Temp Pulse Resp BP Pulse Ox 02/04/21 00:34 36.4 C L 74 20 165/81 H 94 Laboratory Results Laboratory Results - last 24 hr 02/03/21 02/03/21 02/03/21 05:17 05:17 05:17 WBC RBC Hgb Hct MCV MCH MCHC RDW Std Deviation RDW Coeff of Billy Plt Count MPV Immature Gran % (Auto) Neut % (Auto) Lymph % (Auto) [place] % (Auto) Eos % (Auto) Baso % (Auto) Neut # (Auto) Lymph # (Auto) [place] # (Auto) Eos # (Auto) Baso # (Auto) Immature Gran # (Auto) Smudge Cells RBC Morphology Sodium 140 Potassium 4.0 Chloride 107 Carbon Dioxide 30 Anion Gap 3.0 BUN 18 Creatinine 1.06 Est Cr Clr Drug Dosing 40.1 Est GFR ( Amer) 55.1 Est GFR (Non-Af Amer) 47.5 BUN/Creatinine Ratio 17.0 Glucose 97 Calcium 8.9 Iron 103 Transferrin 294 Transferrin % Sat 25 Ferritin 67.5 Vitamin B12 577 25-OH Vitamin D Total 22.3 L 02/03/21 05:17 WBC 39.91 H* RBC 4.13 L Hgb 13.2 Hct 40.0 MCV 96.9 MCH 32.0 MCHC 33.0 RDW Std Deviation 51.7 H RDW Coeff of Billy 14.6 H Plt Count 137 MPV 11.7 H Immature Gran % (Auto) 0.3 Neut % (Auto) 12.1 Lymph % (Auto) 84.6 [place] % (Auto) 2.6 Eos % (Auto) 0.1 Baso % (Auto) 0.3 Neut # (Auto) 4.85 Lymph # (Auto) 33.76 H [place] # (Auto) 1.05 H Eos # (Auto) 0.05 Baso # (Auto) 0.10 Immature Gran # (Auto) 0.10 H Smudge Cells Present RBC Morphology Unremarkable Sodium Potassium Chloride Carbon Dioxide Anion Gap BUN Creatinine Est Cr Clr Drug Dosing Est GFR ( Amer) Est GFR (Non-Af Amer) BUN/Creatinine Ratio Glucose Calcium Iron Transferrin Transferrin % Sat Ferritin Vitamin B12 25-OH Vitamin D Total cxr - no pneumo, no effusion PG Care Time/CCT Total # of Minutes Spent Total Time Spent with Patient: Total time spent is greater than 50% in coordination of care (as documented) at patient's floor/unit and/or counseling patient: Coding Level of Care Code 41271 Subseq Hosp Care Lvl 2 Diagnoses Fall W19.XXXA Encounter type: initial encounter Fracture, ribs S22.41XD Encounter type: subsequent encounter Fracture healing: with routine healing Fracture type: closed Laterality: right 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 D72.820; C91.10 Anxiety F41.9 Hypertension I10 Hypertension type: unspecified Hearing loss H91.90 Nocturnal leg cramps G47.62 Vitamin D insufficiency E55.9 Encephalopathy acute G93.40 Discharge planning issues Z02.9 (1) Fracture, ribs Encounter type: subsequent encounter Fracture healing: with routine healing Fracture type: closed Laterality: right Qualified Code(s): S22.41XD - Multiple fractures of ribs, right side, subsequent encounter for fracture with routine healing (2) Hypertension Hypertension type: unspecified Qualified Code(s): I10 - Essential (primary) hypertension (3) Fall Encounter type: initial encounter Qualified Code(s): W19.XXXA - Unspecified fall, initial encounter
[2021-02-04] MEDS: ACETAMINOPHEN 500 MG TAB PO SCH (05:16)
[2021-02-04] MEDS: CHOLECALCIFEROL 1,000 UNITS 25 MCG TAB PO SCH (08:36)
[2021-02-04] MEDS: LIDOCAINE 5% 1 PATCH TD SCH (08:36)
[2021-02-04] MEDS: traMADol HCL 50 MG TABLET PO PRN (11:54)
[2021-02-04] MEDS ORDERED: ONDANSETRON INJ 2 MG/ML 2 ML VIAL IV STA (12:29)
[2021-02-04] MEDS ORDERED: ONDANSETRON 4 MG OD TAB PO STA (12:43)
[2021-02-04] MEDS ORDERED: ONDANSETRON 4 MG OD TAB ONE (12:52)
--- NOTE | 2021-02-04 13:03 | Hospitalist Progress Note ---
Date of Service February 04, 2021 Assessment & Plan (1) Fracture, ribs: Right ribs 5 and 6. No PTX/Hemothorax or flail chest. Repeat cxr still w/ no complications fortunately. d/c tramadol; change to norco 2.5's. Cont lidoderm patches. Voltaren gel. k-pad. Replace low vit D level. 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 Has been on several agents in the past including sertraline, escitalopram, and mirtazapine. Continue home Ativan prn (6) Hypertension: Despite dx of such she is not on meds for HTN, and BPs are controlled. Follow. (7) Hearing loss: severe b/l hearing aids now in place (8) Nocturnal leg cramps: fe studies wnl b12 wnl replace low vitamin D consider dedicated night-time use of mirapex or gabapentin but defer for now (9) Vitamin D insufficiency: vitamin D 5000 units daily (10) Encephalopathy acute: hospital delirium in setting of dementia had significant sundowning last night start risperdal 0.25mg HS cont supportive care (11) Discharge planning issues: spoke with case management - son apparently will be staying with patient post-d/c so that she can have 24/7 supervision obtain OT eval in addition to PT eval pain uncontrolled and not eating - no discharge today daughter updated by phone this evening Admission and Anticipated Discharge Date Admission Date: February 03, 2021 Subjective patient sitting in chair, stating "I just don't know" I asked her what she meant - she was referring to her fall (she doesn't remember how it happened), wasn't sure how she got to hospital, etc staff report poor appetite, nausea, and right sided pain this am also sundowned most of last pm Review of Systems Constitutional: + fatigue Respiratory: + pain on inspiration; no cough and no dyspnea Cardiovascular: as per Subjective / HPI and + chest pain Gastrointestinal: + nausea; no abdominal pain, no vomiting and no constipation (had BM on 02/03/21) Physical Exam Constitutional: well developed, well nourished, + acute distress (uncomfortable due to rib fx's ) and + altered mental status ENMT: external ear and nose normal, oropharynx normal Ears: + hearing impairment Respiratory: normal respiratory effort, lungs clear to auscultation Auscultation: + diminished lung sounds (right base ) Cardiovascular: Rate/Rhythm: regular rate and regular rhythm Heart Sounds: normal S1 and normal S2; no murmur Vessels: posterior tibial pulses present, dorsalis pedis pulses present and popliteal pulses present; no JVD Extremities: no edema Chest (Breasts): Additional Comments: tender over right mid-chest (rib Fractures) Gastrointestinal (Abdomen): normal bowel sounds, soft, nontender, no hepatosplenomegaly Skin: ecchymoses x 2 on back, worst area right lower back Psychiatric: Orientation: alert, oriented to person and oriented to place; + not oriented to time Results & Data Results & Data ([facility]) Vital Signs (Past 12 Hours) Vital Signs Temp Pulse Resp BP Pulse Ox 02/04/21 07:24 36.9 C 55 L 16 130/76 94 cxr - no pneumo on right, no effusion on right PG Care Time/CCT Total # of Minutes Spent Total Time Spent with Patient: Total time spent is greater than 50% in coordination of care (as documented) at patient's floor/unit and/or counseling patient: Coding Level of Care Code 13609 Subseq Hosp Care Lvl 3 Diagnoses Fracture, ribs S22.41XD Encounter type: subsequent encounter Fracture healing: with routine healing Fracture type: closed Laterality: right Pathological fracture of rib of right side due to osteoporosis M80.0AXA Fall W19.XXXA Encounter type: initial encounter 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 D72.820; C91.10 Anxiety F41.9 Hypertension I10 Hypertension type: unspecified Hearing loss H91.90 Nocturnal leg cramps G47.62 Vitamin D insufficiency E55.9 Encephalopathy acute G93.40 Discharge planning issues Z02.9 (1) Fracture, ribs Encounter type: subsequent encounter Fracture healing: with routine healing Fracture type: closed Laterality: right Qualified Code(s): S22.41XD - Multiple fractures of ribs, right side, subsequent encounter for fracture with routine healing (2) Hypertension Hypertension type: unspecified Qualified Code(s): I10 - Essential (primary) hypertension (3) Fall Encounter type: initial encounter Qualified Code(s): W19.XXXA - Unspecified fall, initial encounter
[2021-02-04] MEDS: DICLOFENAC SOD 1% GEL 100 GM TUBE EXT SCH ×3 (13:49→21:12)
[2021-02-04] MEDS: HYDROCODONE/ACETAMOPHEN 5/325MG TAB PO PRN ×2 (13:51→19:52)
[2021-02-04] MEDS ORDERED: risperiDONE ODT 0.5 MG SOLTAB PO SCH (21:00)
[2021-02-04] MEDS: LORazepam 0.5 MG TAB PO PRN (22:32)
[2021-02-04] MEDS ORDERED: CALCIUM CARBONATE 500 MG CHEWABLE TAB PO ONE (22:45)
[2021-02-05] MEDS: MELATONIN 3 MG TAB PO PRN (02:36)
[2021-02-05 03:30] LABS: Appearance Urine Clear (Clear); Bilirubin Urine Negative (Negative); Blood Urine Negative (Negative); Color Urine Yellow; Glucose Urine UA Negative (Negative); Ketones Urine Negative (Negative); Leukocyte Esterase Urine Negative (Negative); Nitrite Urine Negative (Negative); Protein Urine Negative (Negative); Specific Gravity Urine 1.015 (1.000-1.030); Urobilinogen Urine Negative (Negative)
[2021-02-05] MEDS: HYDROCODONE/ACETAMOPHEN 5/325MG TAB PO PRN ×2 (04:06→14:41)
[2021-02-05] MEDS: LIDOCAINE 5% 1 PATCH TD SCH (07:32)
[2021-02-05 07:58] LABS: Hematocrit (blood only) 38.1 % (37-47); Hemoglobin 12.9 g/dL (12.0-16.0); Mean Corpuscular Hemoglobin 32.1 pg (25-34); Mean Corpuscular Hgb Conc 33.9 g/dL (32-36); Mean Corpuscular Volume 94.8 fL (80-100); Mean Platelet Volume 11.7 fL (7.4-10.4); Platelet Count 156 K/uL (130-400); RDW Coefficient of Variation 14.4 % (11.5-14.5); RDW Standard Deviation 49.7 fL (36.4-46.3); Red Blood Count 4.02 M/uL (4.2-5.4); White Blood Count 36.47 K/uL (4.8-10.8)
[2021-02-05 08:27] LABS: BUN Creatinine Ratio 16.3 (10-20); Est GFR (African American) 51.5; Est GFR (Non-African American) 44.4; Potassium 4.2 mmol/L (3.5-5.1)
[2021-02-05] MEDS: CHOLECALCIFEROL 1,000 UNITS 25 MCG TAB PO SCH (08:44)
[2021-02-05] MEDS: DICLOFENAC SOD 1% GEL 100 GM TUBE EXT SCH ×4 (08:46→22:48)
--- NOTE | 2021-02-05 12:22 | Hospitalist Progress Note ---
Date of Service February 05, 2021 Assessment & Plan (1) Dementia with behavioral disturbance: baseline dementia with encephalopathy and behavioral disturbance. increase risperdal to 0.5mg HS. if needed can repeat the 0.5mg x 1 for total of 1mg at HS if behavior warrants such. continue sitter for safety purposes. (2) Encephalopathy acute: hospital delirium in setting of dementia had significant sundowning last night once again risperdal as above cont supportive care Vitamina b12, TSH wnl (3) Fracture, ribs: Right ribs 5 and 6. No PTX/Hemothorax or flail chest. Repeat cxr still w/ no complications fortunately. Cont norco 2.5's prn. Cont lidoderm patches. Voltaren gel. k-pad. Replace low vit D level. 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 Has been on several agents in the past including sertraline, escitalopram, and mirtazapine. Continue home Ativan prn as previous (8) Hypertension: Despite dx of such she is not on meds for HTN, and BPs are controlled. Follow. (9) Hearing loss: severe b/l hearing aids now in place (10) Nocturnal leg cramps: fe studies wnl b12 wnl replace low vitamin D consider dedicated night-time use of mirapex or gabapentin but defer for now (11) Vitamin D insufficiency: vitamin D 5000 units daily (12) Discharge planning issues: spoke with case management - son apparently will be staying with patient post-d/c so that she can have 24/7 supervision continue PT/OT daughter updated by phone this evening and last night patient had been driving up until this admission given advancing dementia (mod-severe at least) and due to considerable safety concerns behind the wheel 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 she was restless, getting up frequently from the bed and wanting to walk and needing redirection. sitter was present this am during my rounds. patient was working on cross word puzzles when I came to see her. sitting comfortably in chair. was calm and easy to examine. she could not tell me why she was here, what day it was or the year. could not provide meaningful history. Review of Systems Review of Systems: Unobtainable due to cognitive status denied rib pain this am Physical Exam Constitutional: well developed, well nourished, + acute distress and + altered mental status (Pleasant confusion) ENMT: external ear and nose normal, oropharynx normal Ears: + hearing impairment Respiratory: normal respiratory effort, lungs clear to auscultation Auscultation: + diminished lung sounds (right base ) Cardiovascular: Rate/Rhythm: regular rate and regular rhythm Heart Sounds: normal S1 and normal S2; no murmur Vessels: posterior tibial pulses present, dorsalis pedis pulses present and popliteal pulses present; no JVD Extremities: no edema Gastrointestinal (Abdomen): normal bowel sounds, soft, nontender, no hepatosplenomegaly Skin: evolving bruise over right lower back Psychiatric: Orientation: alert and oriented to person; + not oriented to place and + not oriented to time Results & Data Results & [facility] ([facility]) Vital Signs (Past 12 Hours) Vital Signs Temp Pulse Resp BP Pulse Ox 02/05/21 11:49 36.5 C 86 18 171/81 H 97 02/05/21 07:16 37.3 C 99 H 18 145/87 H 94 Laboratory Results Laboratory Results - last 24 hr 02/05/21 02/05/21 02/05/21 03:12 07:37 07:37 WBC 36.47 H* RBC 4.02 L Hgb 12.9 Hct 38.1 MCV 94.8 MCH 32.1 MCHC 33.9 RDW Std Deviation 49.7 H RDW Coeff of Billy 14.4 Plt Count 156 MPV 11.7 H Sodium 138 Potassium 4.2 Chloride 106 Carbon Dioxide 24 Anion Gap 8.0 BUN 18 Creatinine 1.12 Est Cr Clr Drug Dosing 38.0 Est GFR ( Amer) 51.5 Est GFR (Non-Af Amer) 44.4 BUN/Creatinine Ratio 16.3 Glucose 106 H Calcium 10.0 Urine Color Yellow Urine Appearance Clear Urine pH 5.0 Ur Specific [place] 1.015 Urine Protein Negative Urine Glucose (UA) Negative Urine Ketones Negative Urine Blood Negative Urine Nitrite Negative Urine Bilirubin Negative Urine Urobilinogen Negative Ur Leukocyte Esterase Negative PG Care Time/CCT Total # of Minutes Spent Total Time Spent with Patient: Total time spent is greater than 50% in coordination of care (as documented) at patient's floor/unit and/or counseling patient: Coding Level of Care Code 82064 Subseq Hosp Care Lvl 3 Diagnoses Dementia with behavioral disturbance F03.91 Dementia type: unspecified type Encephalopathy acute G93.40 Fracture, ribs S22.41XD Encounter type: subsequent encounter Fracture healing: with routine healing Fracture type: closed Laterality: right Pathological fracture of rib of right side due to osteoporosis M80.0AXA Fall W19.XXXA Encounter type: initial encounter 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 (1) Fracture, ribs Encounter type: subsequent encounter Fracture healing: with routine healing Fracture type: closed Laterality: right Qualified Code(s): S22.41XD - Multiple fractures of ribs, right side, subsequent encounter for fracture with routine healing (2) Hypertension Hypertension type: unspecified Qualified Code(s): I10 - Essential (primary) hypertension (3) Fall Encounter type: initial encounter Qualified Code(s): W19.XXXA - Unspecified fall, initial encounter (4) Dementia with behavioral disturbance Dementia type: unspecified type Qualified Code(s): F03.91 - Unspecified dementia with behavioral disturbance
--- NOTE | 2021-02-05 15:39 | Electrocardiogram Report ---
Test Reason : Blood Pressure : / mmHG Vent. Rate : 082 BPM Atrial Rate : 082 BPM P-R Int : 172 ms QRS Dur : 088 ms QT Int : 386 ms P-R-T Axes : 067 024 019 degrees QTc Int : 450 ms Normal sinus rhythm Minimal voltage criteria for LVH, may be normal variant Nondiagnostic inferior Q waves Borderline ECG When compared with ECG of 01-FEB-2021 17:45, No significant change was found Confirmed by Shayne Rubio ([id number]) on 02/05/2021 3:39:49 PM Referred By: REFERRED SELF Confirmed By:Shayne Rubio
[2021-02-05] MEDS ORDERED: LORazepam 2 MG/ML VIAL (IM USE) IM STA ×2 (21:27→22:16)
[2021-02-05] MEDS: risperiDONE ODT 0.5 MG SOLTAB PO SCH ×2 (22:03→22:35)
[2021-02-05] MEDS: LORazepam 0.5 MG TAB PO PRN (22:03)
[2021-02-05] MEDS ORDERED: OLANZapine 10 MG/2.1 ML SDV IM STA (22:14)
[2021-02-06] MEDS: HYDROCODONE/ACETAMOPHEN 5/325MG TAB PO PRN ×2 (03:16→21:02)
--- NOTE | 2021-02-06 08:10 | Hospitalist Progress Note ---
Date of Service February 06, 2021 Assessment & Plan (1) Dementia with behavioral disturbance: baseline dementia with encephalopathy and behavioral disturbance. increased risperdal to 0.5mg HS with good results if needed can repeat the 0.5mg x 1 for total of 1mg at HS if behavior warrants such. will have home on monday with home health evaluation (2) Encephalopathy acute: hospital delirium in setting of dementia had significant owning last night once again risperdal as above cont supportive care Vitamina b12, TSH wnl (3) Fracture, ribs: Right ribs 5 and 6. No PTX/Hemothorax or flail chest. Repeat cxr still w/ no complications fortunately. Cont norco 2.5's prn. Cont lidoderm patches. Voltaren gel. k-pad. Replace low vit D level. 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 Has been on several agents in the past including sertraline, escitalopram, and mirtazapine. Continue home Ativan prn as previous (8) Hypertension: Despite dx of such she is not on meds for HTN, and BPs are controlled. Follow. (9) Hearing loss: severe b/l hearing aids now in place (10) Nocturnal leg cramps: fe studies wnl b12 wnl replace low vitamin D consider dedicated night-time use of mirapex or gabapentin but defer for now (11) Vitamin D insufficiency: vitamin D 5000 units daily (12) Discharge planning issues: spoke with case management - son apparently will be staying with patient post-d/c so that she can have 24/7 supervision continue PT/OT daughter updated by phone this evening and last night patient had been driving up until this admission given advancing dementia (mod-severe at least) and due to considerable safety concerns behind the wheel 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 she could not tell me why she was here, what day it was or the year. could not provide meaningful history. Review of Systems Review of Systems: Unobtainable due to cognitive status Physical Exam Physical Exam: The patient appeared slightly agitated somewhat distrustful Vital signs as documented. Head exam is normocephalic atraumatic Neck is without JVD, thyromegaly, or carotid bruits. Lungs are clear to auscultation, no focal loss of breath sounds Cardiac exam, Rhythm is regular.. No murmurs, rubs or gallops. Abdominal exam reveals normal bowel sounds, soft non tender, no masses Extremities are nonedematous and both pedal pulses are present Neurologic exam is alert and oriented x1 no focal loss of strength or sensation Skin is without bruises or rashes Psychologically is without concerns for anxiety or depression Results & Data Results & Data ([facility]) Vital Signs (Past 12 Hours) Vital Signs Temp Pulse Resp BP Pulse Ox 02/06/21 07:52 98.2 F 92 H 18 143/81 H 97 02/06/21 03:24 98.2 F 91 H 17 129/74 93 PG Care Time/CCT Total # of Minutes Spent Total Time Spent with Patient: Total time spent is greater than 50% in coordination of care (as documented) at patient's floor/unit and/or counseling patient: Coding Level of Care Code 49674 Subseq Hosp Care Lvl 2 Diagnoses Dementia with behavioral disturbance F03.91 Dementia type: unspecified type Encephalopathy acute G93.40 Fracture, ribs S22.41XD Encounter type: subsequent encounter Fracture healing: with routine healing Fracture type: closed Laterality: right Pathological fracture of rib of right side due to osteoporosis M80.0AXA Fall W19.XXXA Encounter type: initial encounter 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 (1) Dementia with behavioral disturbance Dementia type: unspecified type Qualified Code(s): F03.91 - Unspecified dementia with behavioral disturbance (2) Fracture, ribs Encounter type: subsequent encounter Fracture healing: with routine healing Fracture type: closed Laterality: right Qualified Code(s): S22.41XD - Multiple fractures of ribs, right side, subsequent encounter for fracture with routine healing (3) Hypertension Hypertension type: unspecified Qualified Code(s): I10 - Essential (primary) hypertension (4) Fall Encounter type: initial encounter Qualified Code(s): W19.XXXA - Unspecified fall, initial encounter
[2021-02-06] MEDS: LIDOCAINE 5% 1 PATCH TD SCH (08:43)
[2021-02-06] MEDS: DICLOFENAC SOD 1% GEL 100 GM TUBE EXT SCH ×4 (08:44→21:08)
[2021-02-06] MEDS: CHOLECALCIFEROL 1,000 UNITS 25 MCG TAB PO SCH (08:44)
[2021-02-06] MEDS: POLYETHYLENE (MIRALAX) 17 GM PACK PO SCH ×2 (08:50→21:09)
[2021-02-06] MEDS: SENNA 8.6 MG TAB PO SCH (08:52)
[2021-02-07] MEDS: LORazepam 0.5 MG TAB PO PRN (00:59)
[2021-02-07] MEDS: DICLOFENAC SOD 1% GEL 100 GM TUBE EXT SCH ×4 (08:55→21:43)
[2021-02-07] MEDS: SENNA 8.6 MG TAB PO SCH (08:55)
[2021-02-07] MEDS: LIDOCAINE 5% 1 PATCH TD SCH (08:55)
[2021-02-07] MEDS: CHOLECALCIFEROL 1,000 UNITS 25 MCG TAB PO SCH (08:55)
[2021-02-07] MEDS: POLYETHYLENE (MIRALAX) 17 GM PACK PO SCH ×2 (09:01→21:44)
[2021-02-07] MEDS: HYDROCODONE/ACETAMOPHEN 5/325MG TAB PO PRN ×2 (10:52→22:03)
[2021-02-07] MEDS ORDERED: ALUMINUM/MAGNESIUM SUSP 30 ML UDC PO PRN (14:55)
--- NOTE | 2021-02-07 14:55 | Hospitalist Progress Note ---
Date of Service February 07, 2021 Assessment & Plan (1) Dementia with behavioral disturbance: baseline dementia with encephalopathy and behavioral disturbance. increased risperdal to 0.5mg HS with good results, does not seem to be needing any daytime ativan if needed can repeat the 0.5mg x 1 for total of 1mg at HS if behavior warrants such. will have home with home health evaluation repeat ua prior to going home c/p dysuria and mild abd pain (2) Encephalopathy acute: hospital delirium in setting of dementia had significant sundowning last night once again risperdal as above cont supportive care Vitamina b12, TSH wnl (3) Fracture, ribs: Right ribs 5 and 6. No PTX/Hemothorax or flail chest. Repeat cxr still w/ no complications fortunately. Cont norco 2.5's prn. Cont lidoderm patches. Voltaren gel. k-pad. Replace low vit D level. 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 Has been on several agents in the past including sertraline, escitalopram, and mirtazapine. Continue home Ativan prn as previous (8) Hypertension: Despite dx of such she is not on meds for HTN, and BPs are controlled. Follow. (9) Hearing loss: severe b/l hearing aids now in place (10) Nocturnal leg cramps: fe studies wnl b12 wnl replace low vitamin D consider dedicated night-time use of mirapex or gabapentin but continue to hold (11) Vitamin D insufficiency: vitamin D 5000 units daily (12) Discharge planning issues: spoke with case management - son apparently will be staying with patient post-d/c so that she can have 24/7 supervision continue PT/OT daughter updated by phone this evening and last night patient had been driving up until this admission given advancing dementia (mod-severe at least) and due to considerable safety concerns behind the wheel 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 she could not tell me why she was here, what day it was or the year. could not provide meaningful history. Physical Exam Physical Exam: The patient appeared slightly agitated somewhat distrustful Vital signs as documented. Head exam is normocephalic atraumatic Neck is without JVD, thyromegaly, or carotid bruits. Lungs are clear to auscultation, no focal loss of breath sounds Cardiac exam, Rhythm is regular.. No murmurs, rubs or gallops. Abdominal exam reveals normal bowel sounds, soft non tender, no masses Extremities are nonedematous and both pedal pulses are present Neurologic exam is alert and oriented x1 no focal loss of strength or sensation Skin is without bruises or rashes Psychologically is without concerns for anxiety or depression Results & Data Results & Data ([facility]) Vital Signs (Past 12 Hours) Vital Signs Temp Pulse Resp BP Pulse Ox 02/07/21 10:59 98.2 F 79 18 150/84 H 95 PG Care Time/CCT Total # of Minutes Spent Total Time Spent with Patient: Total time spent is greater than 50% in coordination of care (as documented) at patient's floor/unit and/or counseling patient: Coding Level of Care Code 48450 Subseq Hosp Care Lvl 2 Diagnoses Dementia with behavioral disturbance F03.91 Dementia type: unspecified type Encephalopathy acute G93.40 Fracture, ribs S22.41XD Encounter type: subsequent encounter Fracture healing: with routine healing Fracture type: closed Laterality: right Pathological fracture of rib of right side due to osteoporosis M80.0AXA Fall W19.XXXA Encounter type: initial encounter 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 (1) Dementia with behavioral disturbance Dementia type: unspecified type Qualified Code(s): F03.91 - Unspecified dementia with behavioral disturbance (2) Fracture, ribs Encounter type: subsequent encounter Fracture healing: with routine healing Fracture type: closed Laterality: right Qualified Code(s): S22.41XD - Multiple fractures of ribs, right side, subsequent encounter for fracture with routine healing (3) Fall Encounter type: initial encounter Qualified Code(s): W19.XXXA - Unspecified fall, initial encounter (4) Hypertension Hypertension type: unspecified Qualified Code(s): I10 - Essential (primary) hypertension
[2021-02-07] MEDS: FAMOTIDINE 20 MG TAB PO SCH ×2 (16:13→21:42)
[2021-02-07] MEDS: risperiDONE ODT 0.5 MG SOLTAB PO SCH (21:43)
[2021-02-08] MEDS: MELATONIN 3 MG TAB PO PRN (00:26)
[2021-02-08] MEDS: CHOLECALCIFEROL 1,000 UNITS 25 MCG TAB PO SCH ×2 (07:18→09:20)
[2021-02-08] MEDS: DICLOFENAC SOD 1% GEL 100 GM TUBE EXT SCH ×3 (07:18→12:58)
[2021-02-08] MEDS: POLYETHYLENE (MIRALAX) 17 GM PACK PO SCH (07:19)
[2021-02-08] MEDS: SENNA 8.6 MG TAB PO SCH (07:19)
[2021-02-08] MEDS: FAMOTIDINE 20 MG TAB PO SCH ×2 (07:19→09:21)
[2021-02-08] MEDS: LIDOCAINE 5% 1 PATCH TD SCH ×2 (07:19→09:21)
[2021-02-08] MEDS: LORazepam 0.5 MG TAB PO PRN (09:21)
--- NOTE | 2021-02-09 07:14 | Electrocardiogram Report ---
Test Reason : Blood Pressure : / mmHG Vent. Rate : 103 BPM Atrial Rate : 103 BPM P-R Int : 162 ms QRS Dur : 084 ms QT Int : 344 ms P-R-T Axes : 061 017 008 degrees QTc Int : 450 ms Sinus tachycardia Minimal voltage criteria for LVH, may be normal variant Borderline ECG When compared with ECG of 05-FEB-2021 12:32, No significant change was found Confirmed by Panda Schultz ([id number]) on 02/09/2021 7:13:50 AM Referred By: REFERRED SELF Confirmed By:Panda Schultz
--- NOTE | 2021-02-11 16:32 | Discharge Summary ---
Date of Service February 08, 2021 Admission HPI Per Admitting Provider Sona Adams is an 85yo female with history of HTN, HLP, CLL presenting after a fall at home. Patient does not recall the situation that led to the fall. Apparently she was on the stairs of her trailer when she lost her balance and fell striking her right chest against the steps. She fell down 4 steps and landed on the ground between the stairs and her trailer. She denies head trauma, syncope or loss of consciousness. She had immediate pain on her right chest wall worse with inspiration and movement. Patient is very hard of hearing and conducting the interview was somewhat difficult. She denies additional complaints at this time. No SOB, cough, abdominal pain, nausea, vomiting, diarrhea or constipation. ER Course: Benadryl, Morphine, Zofran Principal Diagnosis Dementia with behavior disturbances Fall, pathological rib fractures Discharge Exam Constitutional WD/WN, vitals as above Neck trachea midline, no thyromegaly Respiratory normal respiratory effort, lungs clear to auscultation Cardiovascular RRR, no murmur, no edema Gastrointestinal (Abdomen) normal bowel sounds, soft, nontender, no hepatosplenomegaly Musculoskeletal no cyanosis or clubbing, extremities motor strength 5/5 Skin no rashes, warm and dry Neurologic patellar DTR's 2+ bilat, sensation intact and PERRL, EOMI, accommodation nl, no face palsy, no dysarthria Psychiatric Orientation: alert, oriented to person and + guarded; + not oriented to place and + not oriented to time Lymphatic no cervical or axillary lymphadenopathy Discharge Data Allergies Allergy/AdvReac Type Severity Reaction Status Date / Time latex Allergy Mild ` Verified 02/12/21 15:06 Iodinated Contrast Media Allergy Unknown PT Verified 02/12/21 15:06 BELIEVES SHE IS ALLERGIC TO CONTRAST MEDIA NSAIDS (Non-Steroidal Allergy Unknown PT TAKES Verified 02/12/21 15:06 Anti-Inflamma BUFFERED ASA AT HOME Penicillins Allergy Unknown Unknown Verified 02/12/21 15:06 Sulfa (Sulfonamide Allergy Unknown Unknown Verified 02/12/21 15:06 Antibiotics) HEATH Inhibitors Allergy Unknown Verified 02/12/21 15:06 erythromycin base Allergy Unknown Verified 02/12/21 15:06 escitalopram [From Lexapro] Allergy Unknown Verified 02/12/21 15:06 Latex, Natural Rubber Allergy Unknown Verified 02/12/21 15:06 methocarbamol [From Robaxin] Allergy Unknown Verified 02/12/21 15:06 oxybutynin Allergy Unknown Verified 02/12/21 15:06 Weenggs-Ffi-Uxm Reductase Allergy Unknown Verified 02/12/21 15:06 Inhibitor tegaserod [From Zelnorm] Allergy Unknown Verified 02/12/21 15:06 milk AdvReac Unknown Verified 02/12/21 15:06 Consultations 02/01/21 21:38 ED Decision to Admit Stat Ordered Studies 02/01/21 17:36 CT abd pelvis IV con only Stat CT cervical spine wo con Stat CT chest diagnostic w con Stat CT head/brain wo con Stat CT lumbar spine w con Stat CT thoracic spine w con Stat 02/02/21 20:25 US venous doppler LE BI Routine Hospital Course (1) Dementia with behavioral disturbance: baseline dementia with encephalopathy and behavioral disturbance. increased risperdal to 0.5mg HS with good results, does not seem to be needing any daytime ativan if needed can repeat the 0.5mg x 1 for total of 1mg at HS if behavior warrants such. will have home health evaluation (2) Encephalopathy acute: hospital delirium in setting of dementia had significant sundowning last night once again risperdal as above cont supportive care Vitamina b12, TSH wnl (3) Fracture, ribs: Right ribs 5 and 6. No PTX/Hemothorax or flail chest. Repeat cxr still w/ no complications fortunately. Cont norco 2.5's prn. Cont lidoderm patches. Voltaren gel. k-pad. Replace low vit D level. 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 Has been on several agents in the past including sertraline, escitalopram, and mirtazapine. Continue home Ativan prn as previous (8) Hypertension: Despite dx of such she is not on meds for HTN, and BPs are controlled. Follow. (9) Hearing loss: severe b/l hearing aids now in place (10) Nocturnal leg cramps: fe studies wnl b12 wnl replace low vitamin D consider dedicated night-time use of mirapex or gabapentin but continue to hold (11) Vitamin D insufficiency: vitamin D 5000 units daily (12) Discharge planning issues: spoke with case management - son apparently will be staying with patient post-d/c so that she can have 24/ supervision continue PT/OT Dr. 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 The encounter with the patient was in whole, or in part, for the following medical condition, which is the primary reason for home health care (list medical condition): fall. rib fractures. I certify that, based on my findings, the following services are medically necessary home health services: My clinical findings support the need for the above services because: OT Assess ADL Status and Restore Function w ADLs PT Assessment for Endurance / Balance / Strength PT Eval for Safety and Mobility PT Eval for Safety, Gait Training, Assistive Devices PT Gait and Balance Training, Strengthening and Safety Safety Skilled Nsg Assessment Skilled Nsg Assessment Surgical Incision / Wound Vital Signs Further, I certify that my clinical findings support that this patient is homebound (i.e. absences from home require considerable and taxing effort and are for medical reasons or alevism services or infrequently or of short duration when for other reasons) because: Assistance of 1 Person for Ambulation/Activities Poor Endurance; SOB Minimal Exertion Supportive Aid - Walker Transportation Assistance/Unable to Leave Home Unassisted Certification for Home Health Services: Based on the above findings, I certify that this patient is confined to the home and needs intermittent prison care, physical therapy and/or speech therapy or continues to need occupational therapy. The patient is under my care, and I have initiated the establishment of the plan of care. This patient will be followed by a physician who will periodically review the plan of care. Total Time Total Time Spent Total Time Spent (In Minutes): 32 Total Time Includes: Examination of the Patient, Discharge Planning and Medication Reconciliation Discharge Plan Discharge Items Patient Disposition: Home - Home Health Services Reason For Visit: FALL, RIB FRACTURES Discharge Diagnosis: Fall Pathological rib fractures, osteoporosis Condition on Discharge: Fair Goals: 24/04 care at home from family, home health stay well nourished pain control Activity: Per Instructions section Bathing: No limitations Exercise/Sports: Gradually increase as tolerated Exercise Comment: do not walk without supervision, family Driving/Machine Use: no driving, paper submitted to [facility] Weightbearing: Full weightbearing Non-emergency contact: Primary Care Provider Call non-emergency contact if: you have any medication questions and your symptoms worsen Follow-up/Referrals: Aristides Bautista III, MD [Primary Care Provider] - 02/12/21 10:30 am (one week APPT WITH JON HERNANDEZ PA-C) Diet: Regular Addtl Attending Provider Instructions: Medications: - VITAMIN D: take 5000 units daily for low levels, osteoporotic rib fractures - NORCO: take 1/2 tablet every 6 hours as needed for severe rib pain not relieved with other measures - LIDODERM PATCHES: apply patches to painful areas, leave on for 12 hours, remove for 12 hours (recommend placing in the morning and removing at night) - RISPERIDONE: take 0.5mg at night for confusion, helps with sleep Fall with rib fractures pain control is gibson, need to be able to take deep breaths, cough if needed use the Lidoderm patches (place in the morning for 12 hours then remove for 12 hours) apply the Voltaren gel four times a day you can take Tylenol 650mg every 6 hours as needed use the [place], 1/2 tablet every 6 hours as needed Pending Studies at Discharge: No Stand-Alone Forms: My [employer], Opioid Pain Management, Smoking Cessation Medications and DC Order Prescriptions: New hydrocodone-acetaminophen 5-325 mg Tablet 0.5 tab PO Q6H PRN (Reason: pain) 10 Days Qty: 14 RF: 0 risperidone 0.5 mg Tablet,Disintegrating 0.5 mg PO HS 30 Days Qty: 30 RF: 1 lidocaine 5 % Adhesive Patch,Medicated 3 patch transdermal QAM 10 Days Qty: 30 RF: 0 cholecalciferol (vitamin D3) 25 mcg (1,000 unit) Capsule 5,000 unit PO QAM 30 Days Qty: 30 RF: 3 Continued diclofenac sodium [Voltaren] 1 % gel 4 gm TOPICAL QID PRN (Reason: Pain) Qty: 100 RF: 5 vitamin E 400 unit Capsule 400 unit PO DAILY RF: 0 Discharge Orders: Discharge Order (Routine); Ordered 02/08/21 Ordered By: Cosme Moreno/Other Patient Handouts: Rib Fracture (Broken Rib) Admission Data Admit Date/Time: 02/03/21 16:37 Attending Provider: Cosme Beaulieu Admit Provider: Ashwini Velásquez Primary Care Provider: Aristides Bautista III Other Providers: Ashwini Velásquez ; [facility] Other Interventions: Discharge Summary Assessment (RN) Last Done: 02/08/21 12:17 Coding Level of Care Code D/C Day Management >30 mins Diagnoses Dementia with behavioral disturbance F03.91 Dementia type: unspecified type Encephalopathy acute G93.40 Fracture, ribs S22.41XD Encounter type: subsequent encounter Fracture healing: with routine healing Fracture type: closed Laterality: right Pathological fracture of rib of right side due to osteoporosis M80.0AXA Fall W19.XXXA Encounter type: initial encounter 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
== END 2021-02-08 14:10 | disposition home health service (06) | DRG 543 ==
LOC: ED 17:14 → 3N 17:14 → SUATTDRO 22:25 → 3N 02-02 → SUATTDRO 02-03 16:37